=== PATIENT | male | born 1960 | race Caucasian/White ===

== ENCOUNTER → 2016-10-29 | Outpatient (CLI) | payer OTHER ==
--- NOTE | 2016-10-29 14:20 | US ---
EXAMINATION TYPE: US carotid duplex BILAT DATE OF EXAM: 10/29/2016 12:09 PM COMPARISON: NONE CLINICAL HISTORY: R55.0 presyncopal episode. EXAM MEASUREMENTS: RIGHT: Peak Systolic Velocity (PSV) cm/sec ----- Right CCA: 95.5 ----- Right ICA: 100.5 ----- Right ECA: 105.7 ICA/CCA ratio: 1.1 RIGHT: End Diastole cm/sec ----- Right CCA: 23.5 ----- Right ICA: 23.5 ----- Right ECA: 17.6 LEFT: Peak Systolic Velocity (PSV) cm/sec ----- Left CCA: 97.8 ----- Left ICA: 114.1 ----- Left ECA: 158.2 ICA/CCA ratio: 1.2 LEFT: End Diastole cm/sec ----- Left CCA: 23.5 ----- Left ICA: 34.9 ----- Left ECA: 21.8 VERTEBRALS (direction of flow): Right Vertebral: Antegrade Left Vertebral: Antegrade TECHNOLOGIST IMPRESSION: No significant stenosis seen Grayscale images show mild eccentric plaque at bilateral carotid bulbs. Velocity measurements and rat ios in visualized portion of both internal carotid arteries is within normal limits. IMPRESSION: No hemodynamically significant stenosis is seen in either internal carotid artery. Criteria for Assigning % of Stenosis / Diameter reduction (Estimation based on the indirect measurements of the internal carotid artery velocities (ICA PSV). 2. Less than 50% stenosis=ICA PSV < 125 cm/s: ratio < 2.0: ICA EDV<40 cm/s.
--- NOTE | 2016-10-30 10:12 | ECHOF ---
Referral Reason:R55.0 presyncopal episode MEASUREMENTS -------- HEIGHT: 165.1 cm WEIGHT: 86.2 kg BP: 134/62 RVIDd: 2.5 cm (< 3.3) IVSd: 1.0 cm (0.6 - 1.1) LVIDd: 4.1 cm (3.9 - 5.3) LVPWd: 1.0 cm (0.6 - 1.1) IVSs: 1.6 cm LVIDs: 3.0 cm LVPWs: 1.8 cm LA Diam: 3.2 cm (2.7 - 3.8) LAESV Index (A-L): 23.87 ml/m Ao Diam: 3.2 cm (2.0 - 3.7) AV Cusp: 1.5 cm (1.5 - 2.6) LA Diam: 2.7 cm (2.7 - 3.8) MV EXCURSION: 9.371 mm (> 18.000) MV EF SLOPE: 44 mm/s (70 - 150) EPSS: 0.3 cm MV E Alberto: 0.60 m/s MV DecT: 207 ms MV A Alberto: 1.06 m/s MV E/A Ratio: 0.57 AR PHT: 524 ms FINDINGS -------- Sinus rhythm. This was a technically good study. Left ventricular wall thickness is normal. Overall left ventricular systolic function is normal with, an EF between 55 - 60 %. The right ventricle is normal in size and function. Normal LA size by volume 22+/-6 ml/m2. The right atrium is normal in size. Aortic valve is trileaflet and is mildly thickened. There is mild aortic regurgitation. Mild mitral annular calcification present. There is trace mitral regurgitation. Mild tricuspid regurgitation present. Pulmonic valve appears structurally normal. The aortic root size is normal. Normal inferior vena cava with normal inspiratory collapse consistent with estimated right atrial pressure of 5 mmHg. Echo free space may represent effusion or a pericardial fat pad. CONCLUSIONS -------- 1. Sinus rhythm. 2. Mild mitral annular calcification present. 3. There is trace mitral regurgitation. 4. Mild tricuspid regurgitation present. 5. Pulmonic valve appears structurally normal. 6. The aortic root size is normal. 7. Normal inferior vena cava with normal inspiratory collapse consistent with estimated right atrial pressure of 5 mmHg. 8. Echo free space may represent effusion or a pericardial fat pad. 9. This was a technically good study. 10. Left ventricular wall thickness is normal. 11. Overall left ventricular systolic function is normal with, an EF between 55 - 60 %. 12. The right ventricle is normal in size and function. 13. Normal LA size by volume 22+/-6 ml/m2. 14. The right atrium is normal in size. 15. Aortic valve is trileaflet and is mildly thickened. 16. There is mild aortic regurgitation. VACUUM PAN OPERATOR: Ajith Schumacher RDCS
== END | disposition home or self-care (01) ==
LOC: RADECHMAIN 11:10
PROVIDERS: ATTEND Family Medicine
DX: R55 Syncope and collapse (principal)
CPT/HCPCS: 93306; 93880

== ENCOUNTER 2020-02-14 09:03 | Day surgery (SDC) | payer OTHER ==
[2020-02-10 09:14] VITALS: BMI 29.1
[~2020-02-14 09:03] MED LIST: LACTATED RINGERS 1,000 ML IV SCH
[2020-02-14 09:30] VITALS: TEMP 97
[2020-02-14] MEDS ORDERED: LIDOCAINE 1% (10MG/ML) FOR IV START INTRADERMA ONE (09:42)
[2020-02-14] MEDS ORDERED: LACTATED RINGERS 1,000 ML IV ONE (09:42)
[2020-02-14] MEDS ORDERED: PROPOFOL 10 MG/ML 20 ML VIAL IV ONE (10:31)
--- NOTE | 2020-02-14 11:00 | P.PCN ---
Date of Procedure: 02/14/20 Description of Procedure: BRIEF HISTORY: Patient is a 60 -year-old female presenting for outpatient colonoscopy for screening for malignant neoplasm of the colon. Remote history of colonoscopy over 10 years ago. No change in bowel habits, blood per rectum or family history of colon cancer. PROCEDURE PERFORMED: Colonoscopy with polypectomy. PREOPERATIVE DIAGNOSIS: Screening for malignant neoplasm of the colon, remote history of colonoscopy. ESTIMATED BLOOD LOSS: Minimal. IV sedation per Anesthesia. PROCEDURE: After informed consent was obtained, the patient, was brought into the endoscopy unit. IV sedation was administered by Anesthesia under continuous monitoring. Digital rectal examination was normal. Initially the Olympus CF-190 flexible video colonoscope was then inserted in the rectum, gradually advanced into the cecum without any difficulty. Careful examination was performed as the scope was gradually being withdrawn. Ileocecal valve and the appendiceal orifice were visualized and appeared normal. Prep was excellent. Mucosa of the cecum, ascending colon, transverse colon, descending colon, sigmoid colon, and rectum appeared normal. The terminal ileum was intubated and appeared normal. Diminutive 2 mm sigmoid polyp removed with cold forcep polypectomy. Pedunculated 1 cm rectal polyp removed with cold snare polypectomy. A few diminutive diverticula noted in the sigmoid colon. Retroflexion was performed in the rectum and no lesions were seen, low-grade internal hemorrhoids. The patient tolerated the procedure well. IMPRESSION: Pedunculated rectal polyp removed with cold snare. Diminutive sigmoid polyp removed with cold forcep. Mild sigmoid diverticulosis. Low-grade internal hemorrhoids. RECOMMENDATIONS: Findings of this examination were discussed with the patient and his family. Okay to resume diet. Okay to resume medications. Await pathology from polypectomy. Would recommend repeat colonoscopy in 3 years for high risk colon polyps.
[2020-02-14 11:08] VITALS: RESP 16
[2020-02-14 11:46] VITALS: BP 131/74; PULSE 79
== END 2020-02-14 11:47 | disposition home or self-care (01) ==
LOC: ORWHC2ENDO 09:03
PROVIDERS: ATTEND Internal Medicine
DX: Z12.11 Encounter for screening for malignant neoplasm of colon (principal); K63.5 Polyp of colon; D12.8 Benign neoplasm of rectum; K57.30 Diverticulosis of large intestine without perforation or abscess without bleeding; K64.8 Other hemorrhoids; I10 Essential (primary) hypertension; I25.10 Atherosclerotic heart disease of native coronary artery without angina pectoris; F17.200 Nicotine dependence, unspecified, uncomplicated; Z79.02 Long term (current) use of antithrombotics/antiplatelets; Z79.899 Other long term (current) drug therapy; Z79.82 Long term (current) use of aspirin; Z95.5 Presence of coronary angioplasty implant and graft; Z98.890 Other specified postprocedural states; Z97.2 Presence of dental prosthetic device (complete) (partial)
CPT/HCPCS: 88305; 45380; 45385; J2704

== ENCOUNTER 2021-01-19 09:45 | Emergency (ER) | payer OTHER ==
[2021-01-19 09:58] VITALS: TEMP 98
[2021-01-19] MEDS: ONDANSETRON 4 MG/2 ML VIAL IVP STA (11:26)
[2021-01-19] MEDS: MORPHINE SULFATE 4 MG/ML SYRINGE IVP STA (11:26)
[2021-01-19 11:34] LABS: Basophils # (A) 0.1 k/uL (0-0.2); Basophils % (A) 1 %; Eosinophils # (A) 0.1 k/uL (0-0.7); Eosinophils % (A) 1 %; HCT 42.4 % (39.0-53.0); HGB 14.8 gm/dL (13.0-17.5); Lymphocytes # (A) 2.2 k/uL (1.0-4.8); Lymphocytes % (A) 14 %; MCH 31.9 pg (25.0-35.0); Mean Platelet Volume 7.4; Monocytes # (A) 1.3 k/uL (0-1.0); Monocytes % (A) 8 %; Neutrophils # (A) 11.1 k/uL (1.3-7.7); Neutrophils % (A) 74 %; Platelet Count 274 k/uL (150-450); RBC 4.65 m/uL (4.30-5.90); RDW 12.7 % (11.5-15.5)
[2021-01-19 11:45] LABS: Albumin 4.1 g/dL (3.5-5.0); Calcium 9.4 mg/dL (8.4-10.2); Potassium 4.3 mmol/L (3.5-5.1); Total Bilirubin 0.7 mg/dL (0.2-1.3)
--- NOTE | 2021-01-19 12:20 | CT ---
EXAMINATION TYPE: CT pelvis wo con DATE OF EXAM: 01/19/2021 COMPARISON: None. HISTORY: Perirectal abscess CT DLP: 457.4 mGycm Automated exposure control for dose reduction was used. FINDINGS: No abnormal small or large bowel dilatation. Some diverticula on the left and sigmoid colon. No CT ev idence for acute diverticulitis. Enlarged prostate consistent with BPH with central calcifications. Bulging of bladder base. Urinary b ladder appears within normal limits. Moderate calcified plaque of the distal abdominal aorta extends into iliac branch vessels were there are metallic stent grafts stent into the external iliac arteries. Focal thin-walled fluid and adjacent fat stranding left perianal region measuring 2.4 x 1.8 cm on axi al image 65 x 3.2 cm craniocaudal dimension coronal image 67. IMPRESSION: Confirmation of small 3.2 cm thin-walled left perianal fluid collection and/or developing abscess.
--- NOTE | 2021-01-19 12:37 | ED ---
General Adult HPI - General Chief complaint: Skin/Abscess/Foreign Body Stated complaint: Abcess, Male Time Seen by Provider: 01/19/21 10:51 Source: patient, RN notes reviewed Mode of arrival: ambulatory Limitations: no limitations - History of Present Illness Initial comments: 61-year-old male presented to emergency from it with chief complaint of abscess. Patient states started a few days a small pimple states is progressively worse and sent over from urgent care for evaluation. Patient denies any fevers chills no history diabetes patient states is painful. Denies any difficulty with bowel movements. - Related Data Home Medications Medication Instructions Recorded Confirmed Aspirin EC [Ecotrin Low Dose] 81 mg PO HS 02/09/20 02/09/20 Atorvastatin [Lipitor] 10 mg PO HS 02/09/20 02/09/20 Clopidogrel [Plavix] 75 mg PO DAILY 02/09/20 02/10/20 Tamsulosin [Flomax] 0.4 mg PO DAILY 02/09/20 02/09/20 lisinopriL [Zestril] 20 mg PO DAILY 02/09/20 02/09/20 Previous Rx's Medication Instructions Recorded Amoxicillin/Potassium Clav 1 tab PO Q12HR #20 tab 01/19/21 [Augmentin 875-125 Tablet] Allergies Allergy/AdvReac Type Severity Reaction Status Date / Time No Known Allergies Allergy Verified 01/19/21 09:58 Review of Systems ROS Statement: Those systems with pertinent positive or pertinent negative responses have been documented in the HPI. ROS Other: All systems not noted in ROS Statement are negative. Past Medical History Past Medical History: Hyperlipidemia, Hypertension, Osteoarthritis (OA) Additional Past Medical History / Comment(s): PAD History of Any Multi-Drug Resistant Organisms: None Reported Additional Past Surgical History / Comment(s): PTBA WITH STENT-2016, COLONOSCOPY Past Anesthesia/Blood Transfusion Reactions: No Reported Reaction Past Psychological History: No Psychological Hx Reported Smoking Status: Current every day smoker Past Alcohol Use History: Rare Past Drug Use History: Marijuana - Past Family History Father Family Medical History: Cancer General Exam Limitations: no limitations General appearance: alert, in no apparent distress Respiratory exam: Present: normal lung sounds bilaterally. Absent: respiratory distress, wheezes, rales, rhonchi, stridor Cardiovascular Exam: Present: regular rate, normal rhythm, normal heart sounds. Absent: systolic murmur, diastolic murmur, rubs, gallop, clicks GI/Abdominal exam: Present: soft, normal bowel sounds. Absent: distended, tende rness, guarding, rebound, rigid Rectal exam: Present: other ((Left Cheek inner aspect there is noted) Neurological exam: Present: alert Skin exam: Present: warm, dry, intact, normal color. Absent: rash Course Vital Signs 01/19/21 09:54 Temperature 98.0 F Pulse Rate 107 H Respiratory 18 Rate Blood Pressure 118/65 O2 Sat by Pulse 99 Oximetry Procedures - Incision & Drainage Consent Obtained: written consent Site: buttock Anesthetic Used: lidocaine 1%, without epi Amount (mLs): 3 I&D Cleaning Method: Alcohol Wipe Sterile Field Used?: No Scalpel Used: #11 I&D Drainage Obtained: Pus Culture Obtained?: No Patient Tolerated Procedure: well, no complications Medical Decision Making - Medical Decision Making case discussed with Dr. Ca recommended I&D and follow-up return parameters were discussed. - Lab Data Result diagrams: 01/19/21 11:21 01/19/21 11:21 Lab Results 01/19/21 01/19/21 01/19/21 Range/Units 11:21 11:21 11:21 WBC 15.0 H (3.8-10.6) k/uL RBC 4.65 (4.30-5.90) m/uL Hgb 14.8 (13.0-17.5) gm/dL Hct 42.4 (39.0-53.0) % MCV 91.0 (80.0-100.0) fL MCH 31.9 (25.0-35.0) pg MCHC 35.0 (31.0-37.0) g/dL RDW 12.7 (11.5-15.5) % Plt Count 274 (150-450) k/uL MPV 7.4 Neutrophils % 74 % Lymphocytes % 14 % Monocytes % 8 % Eosinophils % 1 % Basophils % 1 % Neutrophils # 11.1 H (1.3-7.7) k/uL Lymphocytes # 2.2 (1.0-4.8) k/uL Monocytes # 1.3 H (0-1.0) k/uL Eosinophils # 0.1 (0-0.7) k/uL Basophils # 0.1 (0-0.2) k/uL Sodium 138 (137-145) mmol/L Potassium 4.3 (3.5-5.1) mmol/L Chloride 107 (98-107) mmol/L Carbon Dioxide 23 (22-30) mmol/L Anion Gap 8 mmol/L BUN 20 (9-20) mg/dL Creatinine 1.55 H (0.66-1.25) mg/dL Est GFR (CKD-EPI)AfAm 54 (>60 ml/min/1.73 sqM) Est GFR (CKD-EPI)NonAf 47 (>60 ml/min/1.73 sqM) Glucose 107 H (74-99) mg/dL Plasma Lactic Acid Helder 1.3 (0.7-2.0) mmol/L Calcium 9.4 (8.4-10.2) mg/dL Total Bilirubin 0.7 (0.2-1.3) mg/dL AST 23 (17-59) U/L ALT 16 (4-49) U/L Alkaline Phosphatase 148 H (38-126) U/L Total Protein 7.0 (6.3-8.2) g/dL Albumin 4.1 (3.5-5.0) g/dL Disposition Clinical Impression: Perianal abscess Disposition: HOME SELF-CARE Condition: Stable Instructions (If sedation given, give patient instructions): Abscess Incision and Drainage (ED) Additional Instructions: Please return to the Emergency Department if symptoms worsen or any other concerns. Prescriptions: Amoxicillin/Potassium Clav [Augmentin 875-125 Tablet] 1 tab PO Q12HR #20 tab Is patient prescribed a controlled substance at d/c from ED?: No Referrals: [facility],Clinic [Primary Care Provider] - 1-2 days Time of Disposition: 13:22
[2021-01-19] MEDS: LIDOCAINE 1% INJ 10MG/ML (20 ML MDV) SQ ONE (12:42)
[2021-01-19] MEDS: ACET/COD 300 MG/30 MG STARTER PACK 6 TAB BTL PO STA (13:50)
[2021-01-19 15:27] VITALS: BP 118/74; PULSE 89; RESP 20
== END 2021-01-19 15:27 | disposition home or self-care (01) ==
LOC: EC 09:45
DX: L02.31 Cutaneous abscess of buttock (principal); F17.200 Nicotine dependence, unspecified, uncomplicated; I10 Essential (primary) hypertension; E78.5 Hyperlipidemia, unspecified; M19.90 Unspecified osteoarthritis, unspecified site; Z79.82 Long term (current) use of aspirin; F12.90 Cannabis use, unspecified, uncomplicated
CPT/HCPCS: 36415; 80053; 83605; 85025; 72192; 10060; 99284; 96374; 96375; 96372; J2270; J2405; J2001

== ENCOUNTER → 2021-05-23 | Outpatient (CLI) | payer OTHER ==
--- NOTE | 2021-05-23 16:14 | MR ---
EXAMINATION TYPE: MR shoulder LT wo con DATE OF EXAM: 05/23/2021 COMPARISON: None. HISTORY: Left shoulder/bicep pain, limited ROM. TECHNIQUE: Multiplanar, multisequence imaging of the left shoulder is performed without contrast. FINDINGS: Rotator Cuff: The distal supraspinatus tendon shows increased signal and thickening distally through majority of the tendon with some relative sparing of the superior fibers. More mild increased signal distal infraspinatus tendon greatest over articular surface. No full-thickness retracted tear. Subsca pularis tendon is intact. Rotator cuff muscle bulk is preserved. Acromioclavicular Joint: Moderate to severe narrowing with loss of underlying fat plane sagittal imag e 11 for reference. No significant spurring. Glenohumeral Joint: Moderate narrowing. No significant spurring. Tiny joint effusion. Labrum: The labrum appears grossly intact given limitation of non-arthrogram study. Biceps Tendon: The long head of biceps is in normal location within bicipital groove. Bone marrow signal: Subchondral cysts scattered throughout the femoral head including the rotator cuf f tendon insertion. Other: No additional significant abnormality is appreciated. IMPRESSION: 1. Moderate to severe AC joint narrowing with underlying impingement suspected. Correlate clinically. 2. Severe tendinosis distal supraspinatus tendon. More mild tendinosis distal infraspinatus tendon. N o full-thickness rotator cuff tear.
== END | disposition home or self-care (01) ==
LOC: RADMRIMAIN 11:54
PROVIDERS: ATTEND Physician Assistant
DX: M19.011 Primary osteoarthritis, right shoulder (principal); M67.814 Other specified disorders of tendon, left shoulder

== ENCOUNTER 2022-01-02 20:31 | Inpatient (IN) | payer OTHER, MEDICARE ==
--- NOTE | 2022-01-02 21:34 | XR ---
EXAM: Abdomen radiograph. HISTORY: Pain and constipation. TECHNIQUE: Supine and upright AP views. COMPARISON: None available FINDINGS: There is moderate colonic distention with gas and stool. There is a nonobstructive bowel gas pattern. There are no pathologic calcifications. No acute osseous abnormality seen. No pneumoperitoneum. IMPRESSION: Stool burden/colonic gas. Nonobstructive bowel gas pattern.
[2022-01-03] MEDS ORDERED: SODIUM CHLORIDE 0.9% 1,000 ML IV STA (00:18)
[2022-01-03] MEDS ORDERED: KETOROLAC 15 MG/ML 1 ML VIAL IVP STA (00:18)
--- NOTE | 2022-01-03 00:19 | ED ---
Abdominal Pain HPI - General Chief Complaint: Abdominal Pain Stated Complaint: Constipation Time Seen by Provider: 01/03/22 00:17 Source: patient, RN notes reviewed, old records reviewed Mode of arrival: wheelchair Limitations: no limitations - History of Present Illness Initial Comments: This is a 61-year-old male DF for evaluation. Patient Dese for evaluation of abdominal pain. Patient has severe diffuse abdominal pain he believes it is mostly can't the patient. Patient has history of constipation. States he did have a bowel movement earlier felt mildly better but then the pain got worse. Patient has nausea no vomiting. No travel or sick contacts, and also denying fevers. MD Complaint: abdominal pain -: hour(s) Location: diffuse Radiation: none Migration to: epigastric, suprapubic Severity: moderate Severity scale (1-10): 4 Quality: cramping, stabbing Consistency: constant Improves With: nothing Worsens With: nothing Context: other (Patient has had prior colonoscopy) Associated Symptoms: nausea, constipation Treatments Prior to Arrival: other (none) - Related Data Home Medications Medication Instructions Recorded Confirmed Aspirin EC [Ecotrin Low Dose] 81 mg PO HS 02/09/20 01/19/21 Clopidogrel [Plavix] 75 mg PO HS 02/09/20 01/19/21 Tamsulosin [Flomax] 0.4 mg PO HS 02/09/20 01/19/21 lisinopriL [Zestril] 20 mg PO HS 02/09/20 01/19/21 Atorvastatin [Lipitor] 20 mg PO HS 01/19/21 01/19/21 Previous Rx's Medication Instructions Recorded Amoxicillin/Potassium Clav 1 tab PO Q12HR #20 tab 01/19/21 [Augmentin 875-125 Tablet] Allergies Allergy/AdvReac Type Severity Reaction Status Date / Time No Known Allergies Allergy Verified 01/02/22 21:02 Review of Systems ROS Statement: Those systems with pertinent positive or pertinent negative responses have been documented in the HPI. ROS Other: All systems not noted in ROS Statement are negative. Past Medical History Past Medical History: Hyperlipidemia, Hypertension, Osteoarthritis (OA) Additional Past Medical History / Comment(s): PAD History of Any Multi-Drug Resistant Organisms: None Reported Additional Past Surgical History / Comment(s): PTBA WITH STENT-2016, COLONOSCOPY Past Anesthesia/Blood Transfusion Reactions: No Reported Reaction Past Psychological History: No Psychological Hx Reported Smoking Status: Current every day smoker Past Alcohol Use History: Rare Past Drug Use History: Marijuana - Past Family History Father Family Medical History: Cancer General Exam Limitations: no limitations General appearance: alert, in no apparent distress Head exam: Present: atraumatic, normocephalic, normal inspection Eye exam: Present: normal appearance, PERRL, EOMI. Absent: scleral icterus, conjunctival injection, periorbital swelling ENT exam: Present: normal exam, mucous membranes moist Neck exam: Present: normal inspection. Absent: tenderness, meningismus, lymphadenopathy Respiratory exam: Present: normal lung sounds bilaterally. Absent: respiratory distress, wheezes, rales, rhonchi, stridor Cardiovascular Exam: Present: regular rate, normal rhythm, normal heart sounds. Absent: systolic murmur, diastolic murmur, rubs, gallop, clicks GI/Abdominal exam: Present: soft, distended, tenderness, guarding, normal bowel sounds. Absent: rebound, rigid Extremities exam: Present: normal inspection, full ROM, normal capillary refill. Absent: tenderness, pedal edema, joint swelling, calf tenderness Back exam: Present: normal inspection Neurological exam: Present: alert, oriented X3, CN II-XII intact Psychiatric exam: Present: normal affect, normal mood Skin exam: Present: warm, dry, intact, normal color. Absent: rash Course Vital Signs 01/02/22 20:59 Temperature 99.6 F Pulse Rate 98 Respiratory 16 Rate Blood Pressure 117/63 O2 Sat by Pulse 99 Oximetry - Reevaluation(s) Reevaluation #1: 01/03/22 01:46 medical record is reviewed Reevaluation #2: 01/03/22 01:46 Patient informed of results and questions answered Reevaluation #3: 01/03/22 01:47 Patient's pain is significantly improved Medical Decision Making - Medical Decision Making 61 male to the emergency department for evaluation. Patient presents today for evaluation regards to abdominal pain does have current diverticulitis with perforation. Patient be admitted IV antibiotics and surgical evaluation and treatment - Radiology Data Radiology results: report reviewed (CT of the abdomen and pelvis positive for diverticulitis and perforation), image reviewed Critical Care Time Critical Care Time: Yes Total Critical Care Time: 31 Disposition Clinical Impression: Abdominal pain, Diverticulitis, Diverticulitis of colon with perforation Disposition[facility] Condition: Serious Is patient prescribed a controlled substance at d/c from ED?: No Referrals: Channing Osorio PAC [REFERRING] - 1-2 days
[2022-01-03] MEDS ORDERED: MORPHINE SULFATE 4 MG/ML SYRINGE IVP STA (00:44)
--- NOTE | 2022-01-03 01:34 | CT ---
EXAMINATION TYPE: CT abdomen pelvis wo con DATE OF EXAM: 01/03/2022 COMPARISON: None HISTORY: CT DLP: mGycm Automated exposure control for dose reduction was used. Images obtained from the diaphragm to the floor of the pelvis with no contrast. The lung bases are clear. No pleural effusion. Heart size is normal. No pericardial effusion. Liver spleen and stomach pancreas appear intact. The bile ducts are not dilated. Gallbladder is contr acted. There is no adrenal mass. Kidneys have normal size. No hydronephrosis. Ureters are not dilated. No ev idence of a renal mass. There is no retroperitoneal adenopathy. Appendix is posterior and appears nor mal. Bladder distends smoothly. There is no inguinal hernia. There is mild prostate calcification. There is some wall thickening and fat stranding around the mid sigmoid colon. There are sigmoid diver ticula. There is extraluminal air bubbles on the right lateral aspect of the mid sigmoid colon. No si gn of free air in the abdomen. There is no inguinal hernia. The lumbar vertebrae have normal alignment. No compression fracture. Facet joints are intact. The bon y pelvis is intact. The hip joints are intact. Sacroiliac joints are intact. IMPRESSION: There is sigmoid diverticulitis with perforation and extraluminal air adjacent to the anterior right side of the sigmoid colon. No free air in the abdomen. Inflammatory changes. No drainable fluid colle ction.
[2022-01-03] MEDS ORDERED: AMPICILLIN-SULBACTAM 3 GM in SODIUM CHLORIDE 0.9% 100 ML IVPB STA (01:43)
[2022-01-03] MEDS ORDERED: MORPHINE SULFATE 4 MG/ML SYRINGE IV PRN (01:44)
[2022-01-03] MEDS ORDERED: ONDANSETRON 4 MG/2 ML VIAL IVP PRN (01:44)
[2022-01-03] MEDS ORDERED: NALOXONE 0.4 MG/ML 1 ML VIAL IV PRN (01:44)
[2022-01-03 02:00] LABS: Albumin 4.2 g/dL (3.5-5.0); Calcium 9.1 mg/dL (8.4-10.2); Magnesium 1.8 mg/dL (1.6-2.3); Phosphorus 3.4 mg/dL (2.5-4.5); Potassium 4.3 mmol/L (3.5-5.1); Total Bilirubin 0.9 mg/dL (0.2-1.3)
[2022-01-03 02:06] LABS: Basophils % (A) 0 %; Eosinophils # (A) 0.1 k/uL (0-0.7); Eosinophils % (A) 1 %; HCT 41.4 % (39.0-53.0); HGB 14.1 gm/dL (13.0-17.5); Lymphocytes # (A) 1.1 k/uL (1.0-4.8); Lymphocytes % (A) 5 %; MCV 94.1 fL (80.0-100.0); Mean Platelet Volume 8.2; Monocytes % (A) 5 %; Neutrophils # (A) 19.2 k/uL (1.3-7.7); Neutrophils % (A) 89 %; Platelet Count 230 k/uL (150-450); RDW 13.9 % (11.5-15.5); WBC 21.6 k/uL (3.8-10.6)
[2022-01-03] MEDS: SODIUM CHLORIDE 0.9% 1,000 ML IV SCH ×4 (02:39→21:41)
[2022-01-03] MEDS ORDERED: SODIUM CHLORIDE 0.9% 1,000 ML IV ONE (06:34)
[2022-01-03] MEDS: metroNIDAZOLE-NS PMX 500 MG in SALINE 1 100ML.BAG IVPB SCH ×3 (07:47→17:45)
[2022-01-03] MEDS: PANTOPRAZOLE 40 MG/10 ML VIAL IV SCH (07:47)
[2022-01-03] MEDS: NICOTINE 14MG/24HR PATCH TRANSDERM SCH (08:37)
[2022-01-03] MEDS: HYDROmorphone 1 MG/ML 1 ML SYRINGE IVP PRN ×4 (10:00→18:59)
[2022-01-03] MEDS: AMPICILLIN-SULBACTAM 3 GM in SODIUM CHLORIDE 0.9% 100 ML IVPB SCH ×2 (11:19→19:01)
--- NOTE | 2022-01-03 12:56 | P.GSHP ---
History of Present Illness H&P Date: 01/03/22 CHIEF COMPLAINT: Abdominal pain HISTORY OF PRESENT ILLNESS: This is a 61-year-old male who presented to the hospital with complaints of left lower quadrant abdominal pain 2 days. He reports the pain did come on after eating pork chops. He has been having nausea. He reports that the pain is very severe. He had rated the pain 10 out of 10. He reports having low-grade temperatures at home. He had been dealing with constipation and did use an enema. He reports that did increase the abdominal pain. He has been having flatus. No S bowel movement. He denies any prior history of diverticulitis. He does have history of constipation and nicotine dependence. Also history of peripheral arterial disease with stent in the groin area. He is on Plavix at home. The last dose of Plavix was on 12/31/2021. Patient's last colonoscopy was in January 2021. Reported noncancerous colon polyps. Patient had a computed tomography scan of the abdomen and pelvis showing sigmoid diverticulitis with perforation. Patient started on antibiotics. And was made nothing by mouth. PAST MEDICAL HISTORY: See list. PAST SURGICAL HISTORY: See list. MEDICATIONS: See list. ALLERGIES: See list. SOCIAL HISTORY: No illicit drug use. REVIEW OF SYSTEMS: CONSTITUTIONAL: Denies fever or chills. HEENT: Denies blurred vision, vision changes, or eye pain. Denies hemoptysis ENDOCRINE: Denies heat or cold intolerance. CARDIOVASCULAR: Denies chest pain or pressure. RESPIRATORY: No shortness of breath. GASTROINTESTINAL: Please refer to HPI otherwise unremarkable NEURO: Denies history of seizures. PSYCH: No depression or suicidal ideation HEMATOLOGIC: Denies bleeding disorders. LYMPHATIC: The patient denies any lumps and bumps around the neck. GENITOURINARY: Denies any blood in urine or increased urinary frequency. MUSCULOSKELETAL: Denies myalgias. Denies joint swelling. Denies decreased range of motion beyond patients baseline. SKIN: Denies pruitis. Denies rash. PHYSICAL EXAM: VITAL SIGNS: Reviewed GENERAL: Well-developed in no acute distress. HEENT: No sclera icterus. Extraocular movements grossly intact. Moist buccal mucosa. Head is atraumatic, normocephalic. Hears conversational speech. No nasal drainage. NECK: Supple without lymphadenopathy. CHEST: Non-labored respirations and equal bilateral excursions. CARDIOVASCULAR: Palpable 2+ radial pulses. ABDOMEN: Soft. Nondistended. Tenderness with palpation in the left lower quadrant but closer to the left lower middle abdomen MUSCULOSKELETAL: No clubbing or cyanosis. NEUROLOGIC: No focal or lateralizing signs. Cranial nerves II through XII grossly intact. PSYCH: Appropriate affect. Alert and oriented to person, place and time. SKIN: Well perfused. Good skin turgor. LABORATORY DATA: WBC is 21.6 hemoglobin 14.1 platelets 2:30 Sodium is 138 potassium is 4.3 creatinine is 1.39 Magnesium 1.8 AST 19 ALT 17 alk phos 141 lipase 28 total bilirubin 0.9 IMAGING: Computed tomography scan abdomen and pelvis there is sigmoid diverticulitis with perforation and extraluminal air adjacent to the anterior side of the sigmoid colon. No free air in the abdomen. Inflammatory changes. No drainable fluid collection. ASSESSMENT: 1. Acute sigmoid diverticulitis with perforation 2. Leukocytosis 3. Nicotine dependence 4. History of peripheral arterial disease with stent and on Plavix 5. Hypertension 6. Hyperlipidemia PLAN: -Recommend conservative management for now with IV antibiotics -Keep patient nothing by mouth except for ice chips and popsicles -Consult cardiology for cardiac risk assessment -Consult medicine service for medical management -Continue pain management -Continue IV fluids -Continue to hold Plavix for possible surgical intervention -Discussed smoking cessation. Continue nicotine patch. -Add incentive spirometer Physician Net Washer note has been reviewed by physician. Signing provider agrees with the documented findings, assessment, and plan of care. REASON FOR CONSULTATION: Perforated diverticulitis HISTORY OF PRESENT ILLNESS: The patient is a 61 year old male who comes in with 2 day history of lower abdominal pain. He is an active tobacco user. He reports moderate to severe abdominal pain. He denies any prior event. He had his last colonoscopy in 2019 with polypectomy and tubular adenoma with low grade dysplasia. He has history of peripheral vascular disease. He is admitted for perforated diverticulitis. PAST MEDICAL HISTORY: See list and reviewed PAST SURGICAL HISTORY: See list and reviewed MEDICATIONS: See list and reviewed ALLERGIES: See list and reviewed SOCIAL HISTORY: See list and reviewed FAMILY HISTORY: See list and reviewed REVIEW OF ORGAN SYSTEMS: CONSTITUTIONAL: No fevers or chills. No recent weight loss. EYES: Denies any trouble with vision. No glasses. HEENT: No difficulties with hearing. No nosebleeds. No difficulty swallowing. RESPIRATORY: Denies pneumonia. Has tobacco abuse disorder. CARDIOVASCULAR: Has hyperlipidemia. Has hypertension. GASTROINTESTINAL: Denies fatty food intolerance. Denies change in bowel habits and gas bloat. GENITOURINARY: Denies any blood in urine. Has increased urinary frequency due to prostate disorder. NEUROLOGICAL: Denies any numbness or tingling along the distal extremities. No seizure disorders or headaches. MUSCULOSKELETAL: Has back pain, stiffness or joint arthritis. SKIN: No current skin cancer. No rash. PSYCHIATRIC: Denies current depression or suicidal thoughts. ENDOCRINE: Denies current thyroid disorders. Denies any blood sugar glucose intolerance. HEME/LYMPHATIC: Denies any lumps and bumps around the neck. No recent deep venous thrombosis. ALLERGY/IMMUNOLOGY: No immunoglobulin therapy. No immune deficiencies. BREAST: Denies current breast lumps, pain or nipple discharge. PHYSICAL EXAM: VITALS: Reviewed CONSTITUTIONAL: Well developed and in no acute distress. EYES: Conjuctivae without sclera icterus. Extraocular movements grossly intact. HEAD, EARS, NOSE, THROAT: Moist buccal mucosa. Head is atraumatic, normocephalic. Hears conversational speech. No nasal drainage. NECK: Supple. No JV distention. No thyroidomegaly. RESPIRATORY: Non-labored respirations and equal bilateral excursions. No gross wheezes. CARDIOVASCULAR: Regular rate and rhythm. Extremities without moderate edema. Palpable 2+ radial pulses. ABDOMEN: Tender left lower quadrant. No rigidity. LYMPH: No gross neck lymphadenopathy. MUSCULOSKELETAL: No clubbing cyanosis or edema. SKIN: Warm and well perfused with good skin turgor. NEUROLOGIC: Cranial nerves II through XII grossly intact. No focal or lateralizing signs. PSYCH: Appropriate affect. Alert and oriented to person, place and time. Displays appropriate insight. CLINCAL LABS: Reviewed. WBC 21.6 and elevated on admission with leukocytosis. Creatnine elevated 1.39. IMAGING: Independently reviewed CT of the abdomen and pelvis demonstratign perforation at sigmoid colon. No abscess. No diffuse pneumoperitoneum this is my independent interpretation. Abdominal x-ray independently reviewed without pneumoperitoneum. This is my independent interpretation. RADIOLOGY: Report reviewed of CT with no drainable abscess. Presence of air at the sigmoid colon. EKG: Normal sinus rhythm. RECORDS: previous old records reviewed with colonoscopy in 2019 of diverticulosis and 1 cm rectal colon polyp. ASSESSMENT: 1. Perforated sigmoid diverticulitis 2. Leukocytosis 3. History of colon polyp 4. Tobacco abuse disorder 5. Hypertensive heart disease 6. Peripheral vascular occlusive disease PLAN: 1. IV fluid hydration 2. IV antibiotics 3. Strict tobacco cessation advised 4. Cardiology consultation advised for peripheral vascular diseased and holding plavix 5. Patient is elevated risk for bleeding and complications with chronic antiplatelet use. ADVANCE DIRECTIVE: Thank you for this kind consultation. Past Medical History Past Medical History: Hyperlipidemia, Hypertension, Osteoarthritis (OA) Additional Past Medical History / Comment(s): PAD History of Any Multi-Drug Resistant Organisms: None Reported Additional Past Surgical History / Comment(s): PTBA WITH STENT-2015, COLONOSCOPY Past Anesthesia/Blood Transfusion Reactions: No Reported Reaction Past Psychological History: No Psychological Hx Reported Smoking Status: Current every day smoker Past Alcohol Use History: Rare Additional Past Alcohol Use History / Comment(s): STARTED SMOKING AT AGE 15 SMOKES 1 - 1 1/2 PPD Past Drug Use History: Marijuana - Past Family History Father Family Medical History: Cancer Medications and Allergies Home Medications Medication Instructions Recorded Confirmed Type Aspirin EC [Ecotrin Low Dose] 81 mg PO HS 02/09/20 01/03/22 History Clopidogrel [Plavix] 75 mg PO HS 02/09/20 01/03/22 History Tamsulosin [Flomax] 0.4 mg PO HS 02/09/20 01/03/22 History lisinopriL [Zestril] 20 mg PO HS 02/09/20 01/03/22 History Atorvastatin [Lipitor] 40 mg PO HS 01/03/22 01/03/22 History Cholecalciferol [Vitamin D3 (25 25 mcg PO HS 01/03/22 01/03/22 History Mcg = 1000 Iu)] Nicotine 14Mg/24Hr Patch [Habitrol 1 patch TRANSDERM DAILY 01/03/22 01/03/22 History 14Mg/24Hr Patch] Tadalafil [Cialis] 10 mg PO DAILY PRN 01/03/22 01/03/22 History Testosterone [Androgel 1% Gel Pump] 2 applic TOPICAL DAILY 01/03/22 01/03/22 History amLODIPine [Norvasc] 5 mg PO HS 01/03/22 01/03/22 History Allergies Allergy/AdvReac Type Severity Reaction Status Date / Time No Known Allergies Allergy Verified 01/03/22 06:43 Surgical - Exam Vital Signs Temp Pulse Resp BP Pulse Ox 99.6 F 98 16 117/63 99 01/02/22 20:59 01/02/22 20:59 01/02/22 20:59 01/02/22 20:59 01/02/22 20:59 Results - Labs 01/05/22 03:53 01/05/22 03:53 Abnormal Lab Results - Last 24 Hours (Table) 01/03/22 01/03/22 Range/Units 01:37 01:37 WBC 21.6 H (3.8-10.6) k/uL Neutrophils # 19.2 H (1.3-7.7) k/uL Carbon Dioxide 21 L (22-30) mmol/L BUN 22 H (9-20) mg/dL Creatinine 1.39 H (0.66-1.25) mg/dL Glucose 119 H (74-99) mg/dL Alkaline Phosphatase 141 H (38-126) U/L Diabetes panel 01/03/22 Range/Units 01:37 Sodium 138 (137-145) mmol/L Potassium 4.3 (3.5-5.1) mmol/L Chloride 107 (98-107) mmol/L Carbon Dioxide 21 L (22-30) mmol/L BUN 22 H (9-20) mg/dL Creatinine 1.39 H (0.66-1.25) mg/dL Glucose 119 H (74-99) mg/dL Calcium 9.1 (8.4-10.2) mg/dL AST 19 (17-59) U/L ALT 17 (4-49) U/L Alkaline Phosphatase 141 H (38-126) U/L Total Protein 7.0 (6.3-8.2) g/dL Albumin 4.2 (3.5-5.0) g/dL Calcium panel 01/03/22 Range/Units 01:37 Calcium 9.1 (8.4-10.2) mg/dL Phosphorus 3.4 (2.5-4.5) mg/dL Albumin 4.2 (3.5-5.0) g/dL Pituitary panel 01/03/22 Range/Units 01:37 Sodium 138 (137-145) mmol/L Potassium 4.3 (3.5-5.1) mmol/L Chloride 107 (98-107) mmol/L Carbon Dioxide 21 L (22-30) mmol/L BUN 22 H (9-20) mg/dL Creatinine 1.39 H (0.66-1.25) mg/dL Glucose 119 H (74-99) mg/dL Calcium 9.1 (8.4-10.2) mg/dL Adrenal panel 01/03/22 Range/Units 01:37 Sodium 138 (137-145) mmol/L Potassium 4.3 (3.5-5.1) mmol/L Chloride 107 (98-107) mmol/L Carbon Dioxide 21 L (22-30) mmol/L BUN 22 H (9-20) mg/dL Creatinine 1.39 H (0.66-1.25) mg/dL Glucose 119 H (74-99) mg/dL Calcium 9.1 (8.4-10.2) mg/dL Total Bilirubin 0.9 (0.2-1.3) mg/dL AST 19 (17-59) U/L ALT 17 (4-49) U/L Alkaline Phosphatase 141 H (38-126) U/L Total Protein 7.0 (6.3-8.2) g/dL Albumin 4.2 (3.5-5.0) g/dL
[2022-01-03] MEDS ORDERED: traMADol 50 MG TAB PO SCH (13:00)
--- NOTE | 2022-01-03 13:00 | P.CRDCN ---
History of Present Illness History of present illness: HISTORY OF PRESENTING ILLNESS This is a pleasant 61-year-old male past medical history significant for hypertension, dyslipidemia, peripheral vascular disease disease with prior stenting by Dr. Isaac few years ago per patient, chronic nicotine dependence. He does not follow with a creative services writer but has seen Dr. Isaac in the past. We have been asked to see in consultation for cardiac clearance. Patient presents emergency department with abdominal pain. Patient states at home he has been having symptoms of diffuse abdominal pain and constipation. He denies any nausea, vomiting, chest pain, shortness of breath, lightheadedness, dizziness or palpitations. CT abdomen and pelvis revealed sigmoid diverticulitis with perforation and extraluminal air adjacent to the anterior right side of the sigmoid colon. Surgery was consulted to see patient. No known definitive plans for surgery at this time. Patient denies any history of CAD, ND, Stroke, Diabetes. Denies history of GI ulcers or any gastric surgeries. He is a current smoker, smokes 1.5PPD. DIAGNOSTICS -EKG reveals sinus rhythm HR 79, no ST-T wave abnormalities to suggest ischemia -CT Abdomen/Pelvis report revealed sigmoid diverticulitis with perforation and extraluminal air adjacent to the anterior right side of the sigmoid colon. No free air in the abdomen. Inflammatory changes. No fluid collection. -Laboratory reviewed, WBC 21.6, hemoglobin 14.1, platelets 230, sodium 138, potassium 4.3, BUN 0.2, serum creatinine 1.3, magnesium 1.8 -Current home medications include lisinopril 20 mg nightly, amlodipine 5 mg n ightly, Flomax, Cialis, nicotine patch, Plavix 75 mg daily, atorvastatin 40 mg nightly, aspirin 81mg daily -Echocardiogram in 2017 revealed EF 5560%, mild tricuspid regurgitation REVIEW OF SYSTEMS At the time of my exam: CONSTITUTIONAL: Denies fever or chills. CARDIOVASCULAR: Denies chest pain, shortness of breath, orthopnea, PND or palpitations. RESPIRATORY: Denies cough. GASTROINTESTINAL: Denies abdominal pain, diarrhea, constipation, nausea or vomiting. MUSCULOSKELETAL: Denies myalgias. NEUROLOGIC: Denies numbness, tingling, headacbe or weakness. ENDOCRINE: Denies fatigue, weight change, polydipsia or polyurina. GENITOURINARY: Denies burning, hematuria or urgency with micturation. HEMATOLOGIC: Denies history of anemia or bleeding. PHYSICAL EXAMINATION Blood pressure 110/55, heart 85, temp 99.4, oxygen saturations 96% on room air CONSTITUTIONAL: No apparent distress. HEENT: Head is normocephalic. Pupils are equal, round. Sclerae anicteric. Mucous membranes of the mouth are moist. No JVD. No carotid bruit. CHEST EXAMINATION: Lungs are clear to auscultation. No chest wall tenderness is noted on palpation or with deep breathing. HEART EXAMINATION: Regular rate and rhythm. S1, S2 heard. No murmurs, gallops or rub. ABDOMEN: Soft, nontender. Positive bowel sounds. EXTREMITIES: 2+ peripheral pulses, no lower extremity edema and no calf tenderness. NEUROLOGIC EXAMINATION: Patient is awake, alert and oriented x3. ASSESSMENT Sigmoid diverticulitis with perforation reported on CT scan Hypertension Dyslipidemia Peripheral vascular disease disease with prior stenting by Dr. Isaac few years ago per patient Chronic nicotine dependence PLAN -EKG reviewed -Obtain 2D echocardiogram and doppler study to assess cardiac structure and function. -Patient is at adequate risk for surgery. Patient is hemodynamically stable. Patient is able to perform >4 METs levels of activity and does have any acute cardiac conditions. There are no absolute contraindications to undergo surgery at this time. Nurse practitioner note has been reviewed by physician. Signing provider agrees with the documented findings, assessment, and plan of care. Past Medical History Past Medical History: Hyperlipidemia, Hypertension, Osteoarthritis (OA) Additional Past Medical History / Comment(s): PAD History of Any Multi-Drug Resistant Organisms: None Reported Additional Past Surgical History / Comment(s): PTBA WITH STENT-2015, COLONOSCOPY Past Anesthesia/Blood Transfusion Reactions: No Reported Reaction Past Psychological History: No Psychological Hx Reported Smoking Status: Current every day smoker Past Alcohol Use History: Rare Additional Past Alcohol Use History / Comment(s): STARTED SMOKING AT AGE 15 SMOKES 1 - 1 1/2 PPD Past Drug Use History: Marijuana - Past Family History Father Family Medical History: Cancer Medications and Allergies Home Medications Medication Instructions Recorded Confirmed Type Aspirin EC [Ecotrin Low Dose] 81 mg PO HS 02/09/20 01/03/22 History Clopidogrel [Plavix] 75 mg PO HS 02/09/20 01/03/22 History Tamsulosin [Flomax] 0.4 mg PO HS 02/09/20 01/03/22 History lisinopriL [Zestril] 20 mg PO HS 02/09/20 01/03/22 History Atorvastatin [Lipitor] 40 mg PO HS 01/03/22 01/03/22 History Cholecalciferol [Vitamin D3 (25 25 mcg PO HS 01/03/22 01/03/22 History Mcg = 1000 Iu)] Nicotine 14Mg/24Hr Patch [Habitrol 1 patch TRANSDERM DAILY 01/03/22 01/03/22 History 14Mg/24Hr Patch] Tadalafil [Cialis] 10 mg PO DAILY PRN 01/03/22 01/03/22 History Testosterone [Androgel 1% Gel Pump] 2 applic TOPICAL DAILY 01/03/22 01/03/22 History amLODIPine [Norvasc] 5 mg PO HS 01/03/22 01/03/22 History Allergies Allergy/AdvReac Type Severity Reaction Status Date / Time No Known Allergies Allergy Verified 01/03/22 06:43 Physical Exam Vitals: Vital Signs Temp Pulse Pulse Resp BP BP Pulse Ox 01/03/22 07:12 99.4 F 85 17 110/55 96 01/03/22 03:23 98.2 F 97 16 149/60 97 01/03/22 03:02 96 20 109/51 95 01/02/22 20:59 99.6 F 98 16 117/63 99 Intake and Output 01/02/22 01/03/22 01/03/22 22:59 06:59 14:59 Other: # Voids 1 Weight 83.915 kg 83.915 kg Results 01/03/22 01:37 01/03/22 01:37 Cardiac Enzymes 01/03/22 Range/Units 01:37 AST 19 (17-59) U/L CBC 01/03/22 Range/Units 01:37 WBC 21.6 H (3.8-10.6) k/uL RBC 4.40 (4.30-5.90) m/uL Hgb 14.1 (13.0-17.5) gm/dL Hct 41.4 (39.0-53.0) % Plt Count 230 (150-450) k/uL Comprehensive Metabolic Panel 01/03/22 Range/Units 01:37 Sodium 138 (137-145) mmol/L Potassium 4.3 (3.5-5.1) mmol/L Chloride 107 (98-107) mmol/L Carbon Dioxide 21 L (22-30) mmol/L BUN 22 H (9-20) mg/dL Creatinine 1.39 H (0.66-1.25) mg/dL Glucose 119 H (74-99) mg/dL Calcium 9.1 (8.4-10.2) mg/dL AST 19 (17-59) U/L ALT 17 (4-49) U/L Alkaline Phosphatase 141 H (38-126) U/L Total Protein 7.0 (6.3-8.2) g/dL Albumin 4.2 (3.5-5.0) g/dL Current Medications Generic Name Dose Route Start Last Admin Trade Name Freq PRN Reason Stop Dose Admin Amlodipine Besylate 5 mg 01/03/22 21:00 Amlodipine 5 Mg Tab PO HS [facility] Atorvastatin Calcium 40 mg 01/03/22 21:00 Atorvastatin 40 Mg Tab PO HS [facility] Cholecalciferol 25 mcg 01/03/22 21:00 Cholecalciferol 25 Mcg (1000 Iu) Tablet PO HS [facility] Hydromorphone HCl 1 mg 01/03/22 09:55 01/03/22 10:00 Hydromorphone 1 Mg/Ml 1 Ml Syringe IVP 1 mg Q3HR PRN Administration Pain Ampicillin Sodium/Sulbactam 100 mls @ 200 mls/hr 01/03/22 11:00 Sodium 3 gm/ Sodium Chloride IVPB Q8H SARAH Protocol Sodium Chloride 1,000 mls @ 130 mls/hr 01/03/22 01:45 01/03/22 02:39 Saline 0.9% IV 130 mls/hr .[id number] SARAH Administration Metronidazole 500 mg/ IV 100 mls @ 100 mls/hr 01/03/22 06:45 01/03/22 07:47 Solution IVPB 100 mls/hr Q6HR SARAH Administration Protocol Lisinopril 20 mg 01/03/22 21:00 Lisinopril 20 Mg Tab PO HS [facility] Naloxone HCl 0.2 mg 01/03/22 01:44 Naloxone 0.4 Mg/Ml 1 Ml Vial IV Q2M PRN Opioid Reversal Nicotine 1 patch 01/03/22 09:00 01/03/22 08:37 Nicotine 14mg/24hr Patch TRANSDERM Not Given DAILY [facility] Ondansetron HCl 4 mg 01/03/22 01:44 Ondansetron 4 Mg/2 Ml Vial IVP Q8HR PRN Nausea And Vomiting Pantoprazole Sodium 40 mg 01/03/22 09:00 01/03/22 07:47 Pantoprazole 40 Mg/10 Ml Vial IV 40 mg DAILY SARAH Administration Tamsulosin HCl 0.4 mg 01/03/22 21:00 Tamsulosin 0.4 Mg Cap.Er.24h PO HS [facility] Intake and Output 01/02/22 01/03/22 01/03/22 22:59 06:59 14:59 Other: # Voids 1 Weight 83.915 kg 83.915 kg 01/03/22 01:37 01/03/22 01:37
--- NOTE | 2022-01-03 14:03 | P.CONS ---
History of Present Illness - Reason for Consult Consult date: 01/03/22 Medical Management Requesting physician: Sandra Turcios - Chief Complaint Abdominal Pain - History of Present Illness History of Presenting Illness: Patient is a very pleasant 61-year-old male with a past medical history of hy pertension, hyperlipidemia, peripheral vascular disease with stenting, BPH, diverticulosis, and nicotine dependence. He presented to the emergency department on 01/03/22 with a chief complaint of severe abdominal pain accompanied by constipation and low-grade fevers. Patient underwent full evaluation and was found to have significant leukocytosis with WBC count of 21.6, elevated renal function with BUN of 22, creatinine 1.39, and GFR 54 as well as elevated alkaline phosphatase of 141. Vital signs as follows: Temp 99.6F, heart rate 98, respiratory rate 16, blood pressure 117/63, and SpO2 of 99% on room air. EKG was completed showing normal sinus rhythm at 79 bpm with no noted T wave or ST abnormality showing no signs of acute ischemia. KUB revealed stool burden/colonic gas, and nonobstructive bowel gas pattern. CT abdomen and pelvis without contrast revealed sigmoid diverticulitis with perforation and extraluminal air adjacent to the anterior right side of the sigmoid colon. Patient was started on IV antibiotics with Flagyl and Unasyn and admitted under Gen. surgery team and we have been consulted for continued medical management throughout hospitalization. Patient was seen and fully evaluated at bedside this morning. Patient currently reporting left lowerquadrant abdominal pain accompanied by nausea. He denied any vomiting, flatus, or bowel movements today. Patient also denied having any other complaints including chills, headache, lightheadedness, dizziness, chest pain, palpitations, shortness of breath, hematochezia, melena, or experiencing any difficulties with or changes in his urinary function. Review of systems: Pertinent positives and negatives as discussed in HPI, a complete review of systems was performed and all other systems are negative. Physical exam: Vital signs reviewed and stable. General: Nontoxic, no distress and appears stated age. Derm: Skin warm and dry, normal coloration for ethnicity. Head: Atraumatic, normocephalic and symmetric. Eyes: EOMs intact, no lid lag, and anicteric sclera Mouth: no lip lesions, mucus membranes moist Cardiovascular: regular rate and rhythm with normal S1S2, no murmur, positive posterior tibial pulses bilaterally, and cap refill < 2 seconds. Lungs: Respirations even, regular, and unlabored on room air. Lungs CTA bilaterally, no rhonchi, no rales, no wheezing, and no accessory muscle usage. Abdominal: soft, and diffusely tender throughout left upper and lower quadrant (worse left lower quadrant) upon palpation, no guarding, no appreciable organomegaly Ext: ROM intact. No gross muscle atrophy, no edema, no contractures Neuro: Speech clear, face symmetrical and CN II-XII grossly intact with no noted focal neuro deficits Psych: Alert and oriented to person, place, time, and situation. Appropriate and pleasant affect. Assessment and Plan of Care: Acute sigmoid diverticulitis with perforation Intractable Abdominal pain secondary to above -NPO with the exception of medications until further directed by general surgery team. -Hold Plavix and aspirin until further cleared by general surgery team to resume -Maintain IV fluid hydration -Continue PPI with Protonix 40 mg IVP daily -Continuation of IV antibiotics as ordered by primary admitting general surgery team Elizan and yl. -Symptomatic care and pain management with Zofran as needed for nausea/vomiting and Dilaudid for pain. -Gen. surgery managing and recommending conservative management at this time. Hypertension -Monitor vital signs and continue daily medication regimen with amlodipine and lisinopril. Hyperlipidemia -Continue daily medication regimen with atorvastatin 40 mg nightly. Peripheral vascular disease with previous stenting -Hold aspirin and Plavix at this time until further cleared by general surgery to resume. -Lovenox for DVT prophylaxis as okayed by general surgery team. BPH -Continue daily medication regimen with Flomax. Nicotine dependence -Continue to encourage and educate patient on the importance of smoking ce ssation and the risks of continued use. -Nicotine patch -Incentive spirometry. Thank you for allowing us to participate in the care of this pleasant patient. Do not hesitate to contact us with questions. Someone can be reached from the [facility] hospitalist group all hours of the day at [phone] or via [employer]. Past Medical History Past Medical History: Hyperlipidemia, Hypertension, Osteoarthritis (OA) Additional Past Medical History / Comment(s): PAD History of Any Multi-Drug Resistant Organisms: None Reported Additional Past Surgical History / Comment(s): PTBA WITH STENT-2016, COLONOSCOPY Past Anesthesia/Blood Transfusion Reactions: No Reported Reaction Past Psychological History: No Psychological Hx Reported Smoking Status: Current every day smoker Past Alcohol Use History: Rare Additional Past Alcohol Use History / Comment(s): STARTED SMOKING AT AGE 15 SMOKES 1 - 1 1/2 PPD Past Drug Use History: Marijuana - Past Family History Father Family Medical History: Cancer Medications and Allergies Home Medications Medication Instructions Recorded Confirmed Type Aspirin EC [Ecotrin Low Dose] 81 mg PO HS 02/09/20 01/03/22 History Clopidogrel [Plavix] 75 mg PO HS 02/09/20 01/03/22 History Tamsulosin [Flomax] 0.4 mg PO HS 02/09/20 01/03/22 History lisinopriL [Zestril] 20 mg PO HS 02/09/20 01/03/22 History Atorvastatin [Lipitor] 40 mg PO HS 01/03/22 01/03/22 History Cholecalciferol [Vitamin D3 (25 25 mcg PO HS 01/03/22 01/03/22 History Mcg = 1000 Iu)] Nicotine 14Mg/24Hr Patch [Habitrol 1 patch TRANSDERM DAILY 01/03/22 01/03/22 History 14Mg/24Hr Patch] Tadalafil [Cialis] 10 mg PO DAILY PRN 01/03/22 01/03/22 History Testosterone [Androgel 1% Gel Pump] 2 applic TOPICAL DAILY 01/03/22 01/03/22 History amLODIPine [Norvasc] 5 mg PO HS 01/03/22 01/03/22 History Allergies Allergy/AdvReac Type Severity Reaction Status Date / Time No Known Allergies Allergy Verified 01/03/22 06:43 Physical Exam Vitals: Vital Signs Temp Pulse Pulse Resp BP BP Pulse Ox 01/03/22 07:12 99.4 F 85 17 110/55 96 01/03/22 03:23 98.2 F 97 16 149/60 97 01/03/22 03:02 96 20 109/51 95 01/02/22 20:59 99.6 F 98 16 117/63 99 Intake and Output 01/02/22 01/03/22 01/03/22 22:59 06:59 14:59 Other: # Voids 1 Weight 83.915 kg 83.915 kg Results CBC & Chem 7: 01/03/22 01:37 01/03/22 01:37 Labs: Abnormal Lab Results - Last 24 Hours (Table) 01/03/22 01/03/22 Range/Units 01:37 01:37 WBC 21.6 H (3.8-10.6) k/uL Neutrophils # 19.2 H (1.3-7.7) k/uL Carbon Dioxide 21 L (22-30) mmol/L BUN 22 H (9-20) mg/dL Creatinine 1.39 H (0.66-1.25) mg/dL Glucose 119 H (74-99) mg/dL Alkaline Phosphatase 141 H (38-126) U/L
[2022-01-03] MEDS: ENOXAPARIN 40 MG/0.4 ML SYRINGE SQ SCH (14:06)
--- NOTE | 2022-01-03 18:05 | XR ---
EXAMINATION TYPE: XR chest 2V DATE OF EXAM: 01/03/2022 COMPARISON: None HISTORY: 61-year-old male preoperative clearance TECHNIQUE: PA and lateral views FINDINGS: Heart upper limits of normal in size. Aorta and pulmonary vasculature within normal limits. Some cent ral peribronchial cuffing is noted. Mild patchy density at the cardiac apex. Otherwise, no consolidat ion or pleural effusion. Prominent bilateral first rib ends. IMPRESSION: 1. Some central peribronchial cuffing may be seen with bronchitis or chronic asthma. 2. Some patchy inferior lingular opacity. Patchy atelectasis is favored over an early infiltrate. Cor relate with patient's symptoms.
[2022-01-03] MEDS: lisinopriL 20 MG TAB PO SCH (20:02)
[2022-01-03] MEDS: TAMSULOSIN 0.4 MG CAP.ER.24H PO SCH (20:02)
[2022-01-03] MEDS: amLODIPine 5 MG TAB PO SCH (20:02)
[2022-01-03] MEDS: ATORVASTATIN 40 MG TAB PO SCH (20:02)
[2022-01-03] MEDS: CHOLECALCIFEROL 25 MCG (1000 IU) TABLET PO SCH (20:02)
[2022-01-04] MEDS: HYDROmorphone 1 MG/ML 1 ML SYRINGE IVP PRN ×4 (00:10→12:33)
[2022-01-04] MEDS: metroNIDAZOLE-NS PMX 500 MG in SALINE 1 100ML.BAG IVPB SCH ×5 (00:11→23:19)
[2022-01-04] MEDS: AMPICILLIN-SULBACTAM 3 GM in SODIUM CHLORIDE 0.9% 100 ML IVPB SCH ×3 (02:22→19:00)
[2022-01-04] MEDS: PANTOPRAZOLE 40 MG/10 ML VIAL IV SCH (07:52)
[2022-01-04] MEDS: ENOXAPARIN 40 MG/0.4 ML SYRINGE SQ SCH (07:52)
[2022-01-04] MEDS: SODIUM CHLORIDE 0.9% 1,000 ML IV SCH ×2 (07:52→18:49)
[2022-01-04] MEDS: NICOTINE 14MG/24HR PATCH TRANSDERM SCH (07:53)
[2022-01-04 08:47] LABS: Basophils # (A) 0.06 X 10*3/uL (0.00-0.10); Basophils % (A) 0.4 %; Eosinophils % (A) 0.6 %; HCT 34.6 % (39.6-50.0); HGB 11.4 g/dL (13.0-17.0); Immature Grans, Automated 0.4 %; Lymphocytes # (A) 1.63 X 10*3/uL (0.90-5.00); Lymphocytes % (A) 10.1 %; MCH 30.5 pg (27.0-32.0); MCHC 32.9 g/dL (32.0-37.0); MCV 92.5 fL (80.0-97.0); Mean Platelet Volume 11.7 fL (9.5-12.2); Monocytes # (A) 1.17 X 10*3/uL (0.20-1.00); Monocytes % (A) 7.3 %; NRBC Per 100 WBC 0 /100 WBCS (0.0-0.0); Neutrophils # (A) 13.07 X 10*3/uL (1.80-7.70); Neutrophils % (A) 81.2 %; Platelet Count 216 X 10*3/uL (140-440); RBC 3.74 X 10*6/uL (4.40-5.60); RDW 13.8 % (11.5-14.5)
[2022-01-04 09:04] LABS: African American GFR (CKD) 61.5 (60.0-200.0); Albumin 3.1 g/dL (3.8-4.9); Albumin/Globulin Ratio 1.48 (1.60-3.17); Anion Gap 9.6 mmol/L (10.00-18.00); BUN/Creat Ratio 14.36 Ratio (12.00-20.00); Blood Urea Nitrogen 20.1 mg/dL (9.0-27.0); Calcium 8.1 mg/dL (8.7-10.3); Carbon Dioxide 19.4 mmol/L (20.0-27.5); Globulin 2.1 g/dL (1.6-3.3); Magnesium 2.2 mg/dL (1.5-2.4); Non-African American GFR(CKD) 53.1 (60.0-200.0); Phosphorus 1.9 mg/dL (2.4-5.1); Potassium 4.1 mmol/L (3.5-5.5); Total Bilirubin 0.6 mg/dL (0.30-1.20); Total Protein 5.2 g/dL (6.2-8.2)
--- NOTE | 2022-01-04 10:37 | CA ---
Transthoracic Echo Report Name: Lm Malone Age: 61 Gender: M : 1960 Exam Date: 01/03/2022 11:29 Exam Location: [place] [facility] Ht (in): 65 Wt (lb): 185 Ordering Physician: Kayla Diaz Attending/Referring Phys: Continuity Tester Milana Barrera RDCS Procedure CPT: Indications: Cardiac clearance Cardiac Hx: Technical Quality: Good Contrast 1: Total Dose (mL): Contrast 2: Total Dose (mL): MEASUREMENTS (Male / Female) Normal Values 2D ECHO LV Diastolic Diameter PLAX 4.9 cm 4.2 - 5.9 / 3.9 - 5.3 cm LV Systolic Diameter PLAX 3.1 cm IVS Diastolic Thickness 1.0 cm 0.6 - 1.0 / 0.6 - 0.9 cm LVPW Diastolic Thickness 1.0 cm 0.6 - 1.0 / 0.6 - 0.9 cm LV Relative Wall Thickness 0.4 RV Internal Dim ED PLAX 3.0 cm LA Systolic Diameter LX 3.9 cm 3.0 - 4.0 / 2.7 - 3.8 cm LA Volume 61.6 cm??? 18 - 58 / 22 - 52 cm??? M-MODE Aortic Root Diameter MM 3.2 cm MV E Point Septal Separation 1.5 cm AV Cusp Separation MM 2.2 cm DOPPLER AV Peak Velocity 161.4 cm/s AV Peak Gradient 10.4 mmHg AI Peak Velocity 408.7 cm/s AI Peak Gradient 66.8 mmHg AI Pressure Half Time 392.0 ms MV Area PHT 4.5 cm??? Mitral E Point Velocity 88.5 cm/s Mitral A Point Velocity 59.4 cm/s Mitral E to A Ratio 1.5 MV Deceleration Time 167.8 ms TR Peak Velocity 292.4 cm/s TR Peak Gradient 34.2 mmHg Right Ventricular Systolic Press 39.2 mmHg FINDINGS Left Ventricle Normal left ventricular size, wall thickness, systolic function with no obvious regional wall motion abnormalities. Normal left ventricular diastolic filling pattern for age. The ejection fraction is visually estimated at 60-65 %. Right Ventricle The right ventricle is normal in size and function. Mild pulmonary hypertension. Right Atrium The right atrium is normal in size. Left Atrium The left atrium is normal in size. Mildly increased left atrial volume. Mitral Valve Structurally normal mitral valve without significant stenosis or prolapse. Trace to mild mitral regurgitation. Aortic Valve Focal thickening of the aortic valve cusps. Moderate aortic regurgitation. Tricuspid Valve Structurally normal tricuspid valve without significant stenosis Pulmonic Valve Trace pulmonic regurgitation. Pericardium Normal pericardium without effusion. Aorta Normal aortic root dimension. CONCLUSIONS Normal left ventricular dimension and systolic function Aortic sclerosis. Moderate aortic insufficiency Mild mitral regurgitation See above for further details Previewed by: Dr. Brady Friend MD (Electronically Signed) Final Date: 04 Jan 2022 10:36
[2022-01-04] MEDS ORDERED: SODIUM CHLORIDE 0.9% 2,000 ML IV ONE (14:20)
--- NOTE | 2022-01-04 14:32 | P.PN ---
Subjective Progress Note Date: 01/04/22 Hospital course: Patient is a very pleasant 61-year-old male with a past medical history of hypertension, hyperlipidemia, peripheral vascular disease with stenting, BPH, diverticulosis, and nicotine dependence. He presented to the emergency department on 01/03/22 with a chief complaint of severe abdominal pain accompanied by constipation and low-grade fevers. Patient underwent full evaluation and was found to have significant leukocytosis with WBC count of 21 .6, elevated renal function with BUN of 22, creatinine 1.39, and GFR 54 as well as elevated alkaline phosphatase of 141. Vital signs as follows: Temp 99.6F, heart rate 98, respiratory rate 16, blood pressure 117/63, and SpO2 of 99% on room air. EKG was completed showing normal sinus rhythm at 79 bpm with no noted T wave or ST abnormality showing no signs of acute ischemia. KUB revealed stool burden/colonic gas, and nonobstructive bowel gas pattern. CT abdomen and pelvis without contrast revealed sigmoid diverticulitis with perforation and extraluminal air adjacent to the anterior right side of the sigmoid colon. Patient was started on IV antibiotics with Flagyl and Unasyn and admitted under Gen. surgery team and we have been consulted for continued medical management throughout hospitalization. Physical exam: Patient seen and fully evaluated at bedside this morning. Condition appears to have improved. Patient reports continued diffuse abdominal discomfort greater in left lower quadrant, but does report that it has improved since admission. Patient reports that he has been passing flatus but denies having any actual bowel movement since arrival to facility. WBCs improving down to 16.10 this morning. Echocardiogram completed revealing an EF of 60-65% with aortic sclerosis, moderate aortic insufficiency, and mitral valve regurgitation. Patient remains nothing by mouth with the exception of ice chips and popsicles and continues to receive IV hydration with 0.9% normal saline at 130 mL per hour and remains on IV antibiotics with Flagyl and Unasyn. Vital signs reviewed and stable. General: Nontoxic, no distress and appears stated age. Derm: Skin warm and dry, normal coloration for ethnicity. Head: Atraumatic, normocephalic and symmetric. Eyes: EOMs intact, no lid lag, and anicteric sclera Mouth: no lip lesions, mucus membranes moist Cardiovascular: regular rate and rhythm with normal S1S2, no murmur, positive posterior tibial pulses bilaterally, and cap refill < 2 seconds. Lungs: Respirations even, regular, and unlabored on room air. Lungs CTA bilaterally, no rhonchi, no rales, no wheezing, and no accessory muscle usage. Abdominal: soft, tenderness to left lower quadrant upon palpation, no guarding, no appreciable organomegaly Ext: ROM intact. No gross muscle atrophy, no edema, no contractures Neuro: Speech clear, face symmetrical and CN II-XII grossly intact with no noted focal neuro deficits Psych: Alert and oriented to person, place, time, and situation. Appropriate and pleasant affect. Assessment and Plan of Care: Acute sigmoid diverticulitis with perforation Intractable Abdominal pain secondary to above -NPO with the exception of medications, ice chips, and popsicles until further directed by general surgery team. -Hold Plavix and aspirin until further cleared by general surgery team to resume -Maintain IV fluid hydration -Continue PPI with Protonix 40 mg IVP daily -Continuation of IV antibiotics as ordered by primary admitting general surgery team Unasyn and Flagyl. -Symptomatic care and pain management with Zofran as needed for nausea/vomiting and Dilaudid for pain. -Gen. surgery managing and recommending conservative management at this time. -DVT prophylaxis with Lovenox. Hypertension -Monitor vital signs and continue daily medication regimen with amlodipine and lisinopril. Hyperlipidemia -Continue daily medication regimen with atorvastatin 40 mg nightly. Peripheral vascular disease with previous stenting -Hold aspirin and Plavix at this time until further cleared by general surgery to resume. -Lovenox for DVT prophylaxis as okayed by general surgery team. BPH -Continue daily medication regimen with Flomax. Nicotine dependence -Continue to encourage and educate patient on the importance of smoking cessation and the risks of continued use. -Nicotine patch -Incentive spirometry. Thank you for allowing us to participate in the care of this pleasant patient. Do not hesitate to contact us with questions. Someone can be reached from the [facility] hospitalist group all hours of the day at [phone] or via [employer]. Objective - Vital Signs Vital signs: Vital Signs Temp 98.8 F 01/04/22 07:24 Pulse 80 01/04/22 07:24 Resp 18 01/04/22 07:24 BP 113/67 01/04/22 07:24 Pulse Ox 92 L 01/04/22 07:24 Intake & Output 0501/04/22 01/04/22 18:59 06:59 18:59 Intake Total 2098 Output Total 225 Balance 2098 - Intake: Intake, IV Titration 2098 Amount Sodium Chloride 0.9% 1, 1000 000 ml @ 130 mls/hr IV . Q7H42M [facility] Rx#:[id number] Sodium Chloride 0.9% 1, 999 000 ml @ 999 mls/hr IV . Q1H1M ONE Rx#:[id number] metroNIDAZOLE-NS PMX 500 100 mg In Saline 1 100ml.bag @ 100 mls/hr IVPB Q6HR [facility] Rx#:[id number] Output: Urine 225 Other: Voiding Method Urinal # Voids 1 2 - Labs CBC & Chem 7: 01/04/22 05:32 01/04/22 05:32 Labs: Abnormal Lab Results - Last 24 Hours (Table) 01/04/22 01/04/22 Range/Units 05:32 05:32 WBC 16.10 H (4.50-10.00) X 10*3/uL RBC 3.74 L (4.40-5.60) X 10*6/uL Hgb 11.4 L (13.0-17.0) g/dL Hct 34.6 L (39.6-50.0) % Immature Gran # 0.07 H (0.00-0.04) X 10*3/uL Neutrophils # 13.07 H (1.80-7.70) X 10*3/uL Monocytes # 1.17 H (0.20-1.00) X 10*3/uL Chloride 111 H (96-109) mmol/L Carbon Dioxide 19.4 L (20.0-27.5) mmol/L Anion Gap 9.60 L (10.00-18.00) mmol/L Est GFR (CKD-EPI)NonAf 53.1 L (60.0-200.0) Calcium 8.1 L (8.7-10.3) mg/dL Phosphorus 1.9 L (2.4-5.1) mg/dL Total Protein 5.2 L (6.2-8.2) g/dL Albumin 3.1 L (3.8-4.9) g/dL Albumin/Globulin Ratio 1.48 L (1.60-3.17) g/dL Microbiology - Last 24 Hours (Table) 01/03/22 02:25 Blood Culture - Preliminary Blood No Growth after 24 hours 01/03/22 02:40 Blood Culture - Preliminary Blood No Growth after 24 hours
[2022-01-04] MEDS: GABAPENTIN 300 MG CAP PO SCH ×2 (15:10→21:35)
[2022-01-04] MEDS: ACETAMINOPHEN TAB 500 MG TAB PO SCH ×2 (15:10→23:19)
--- NOTE | 2022-01-04 15:19 | P.PN ---
Subjective Progress Note Date: 01/04/22 CHIEF COMPLAINT: Perforated diverticulitis HISTORY OF PRESENT ILLNESS: Patient is complaining of abdominal pain. He does report the pain is slightly better than yesterday. He had rated his pain about a 4 out of 10. He is having flatus. Denies any vomiting. The Dilaudid has been making patient feel more nauseous and urine has been dark. He is afebrile. White count trending down from 21-16 hemoglobin 11.4 sodium is 140 potassium is 4.1 creatinine is 1.4 chest x-ray some central peribronchial cuffing may be seen with bronchitis or chronic asthma. Some patchy inferior lingular opacity. Patchy atelectasis is favored over early infiltrate. PHYSICAL EXAM: VITAL SIGNS: Reviewed GENERAL: Well-developed in no acute distress. HEENT: No sclera icterus. Extraocular movements grossly intact. Moist buccal mucosa. Head is atraumatic, normocephalic. Hears conversational speech. No nasal drainag e. NECK: Supple without lymphadenopathy. CHEST: Non-labored respirations and equal bilateral excursions. CARDIOVASCULAR: Palpable 2+ radial pulses. ABDOMEN: Soft. Nondistended. Tenderness with palpation of the left lower quadrant MUSCULOSKELETAL: No clubbing or cyanosis. NEUROLOGIC: No focal or lateralizing signs. Cranial nerves II through XII grossly intact. PSYCH: Appropriate affect. Alert and oriented to person, place and time. SKIN: Well perfused. Good skin turgor. ASSESSMENT: 1. Acute sigmoid diverticulitis with perforation 2. Leukocytosis 3. Nicotine dependence 4. History of peripheral arterial disease with stent and on Plavix at home 5. Hypertension 6. Hyperlipidemia 7. Atelectasis PLAN: -Continue conservative management for now with IV antibiotics -Keep patient nothing by mouth except for ice chips and popsicles -Continue to monitor CBC -Continue pain management. We'll add gabapentin 300 mg 3 times a day and Tylenol 1000mg every 6 hours scheduled. And continue Dilaudid sparingly only for breakthrough pain -Give 2 L fluid bolus -Discussed smoking cessation -Added incentive spirometer -Continue to hold Plavix for possible surgical intervention -DVT prophylaxis Lovenox Physician Soda Fountain Operator note has been reviewed by physician. Signing provider agrees with the documented findings, assessment, and plan of care. CHIEF COMPLAINT: Perforated diverticulitis HISTORY OF PRESENT ILLNESS: The patient is a 61 year old male who comes in with perforated diverticulitis. Since admission, he reports some improvement of his abdominal pain. No bowel movements. No nausea. REVIEW OF ORGAN SYSTEMS: No fevers or chills. No nausea or vomiting. No chest pain. PHYSICAL EXAM: VITALS: Reviewed CONSTITUTIONAL: Well developed and in no acute distress. EYES: Conjuctivae without sclera icterus. Extraocular movements grossly intact. HEAD, EARS, NOSE, THROAT: Moist buccal mucosa. Head is atraumatic, normocephalic. Hears conversational speech. No nasal drainage. RESPIRATORY: Non-labored respirations and equal bilateral excursions. No gross wheezes. CARDIOVASCULAR: Regular rate and rhythm. Extremities without moderate edema. Palpable 2+ radial pulses. ABDOMEN: Tender left lower quadrant. MUSCULOSKELETAL: No clubbing cyanosis or edema. SKIN: Warm and well perfused with good skin turgor. NEUROLOGIC: Cranial nerves II through XII grossly intact. No focal or lateralizing signs. PSYCH: Appropriate affect. Alert and oriented to person, place and time. Displays appropriate insight. CLINCAL LABS: Reviewed. WBC 21.6 and elevated on admission with leukocytosis. Creatnine elevated 1.4 ASSESSMENT: 1. Perforated sigmoid diverticulitis 2. Leukocytosis 3. History of colon polyp 4. Tobacco abuse disorder 5. Hypertensive heart disease 6. Peripheral vascular occlusive disease 7. Elevated creatinine due to dehydration PLAN: 1. Continue NPO 2. Continue IV antibiotics 3. IV fluid hydration for dehydration with elevated creatinine Objective - Vital Signs Vital signs: Vital Signs Temp 98.8 F 01/04/22 07:24 Pulse 80 01/04/22 07:24 Resp 18 01/04/22 07:24 BP 113/67 01/04/22 07:24 Pulse Ox 92 L 01/04/22 07:24 Intake & Output 01/03/22 01/04/22 01/04/22 18:59 06:59 18:59 Intake Total 2098 Output Total 225 Balance 2098 - Intake: Intake, IV Titration 2098 Amount Sodium Chloride 0.9% 1, 1000 000 ml @ 130 mls/hr IV . Q7H42M [facility] Rx#:[id number] Sodium Chloride 0.9% 1, 999 000 ml @ 999 mls/hr IV . Q1H1M [facility] Rx#:[id number] metroNIDAZOLE-NS PMX 500 100 mg In Saline 1 100ml.bag @ 100 mls/hr IVPB Q6HR [facility] Rx#:[id number] Output: Urine 225 Other: Voiding Method Urinal # Voids 1 2 - Labs CBC & Chem 7: 01/05/22 03:53 01/05/22 03:53 Labs: Abnormal Lab Results - Last 24 Hours (Table) 01/04/22 01/04/22 Range/Units 05:32 05:32 WBC 16.10 H (4.50-10.00) X 10*3/uL RBC 3.74 L (4.40-5.60) X 10*6/uL Hgb 11.4 L (13.0-17.0) g/dL Hct 34.6 L (39.6-50.0) % Immature Gran # 0.07 H (0.00-0.04) X 10*3/uL Neutrophils # 13.07 H (1.80-7.70) X 10*3/uL Monocytes # 1.17 H (0.20-1.00) X 10*3/uL Chloride 111 H (96-109) mmol/L Carbon Dioxide 19.4 L (20.0-27.5) mmol/L Anion Gap 9.60 L (10.00-18.00) mmol/L Est GFR (CKD-EPI)NonAf 53.1 L (60.0-200.0) Calcium 8.1 L (8.7-10.3) mg/dL Phosphorus 1.9 L (2.4-5.1) mg/dL Total Protein 5.2 L (6.2-8.2) g/dL Albumin 3.1 L (3.8-4.9) g/dL Albumin/Globulin Ratio 1.48 L (1.60-3.17) g/dL Microbiology - Last 24 Hours (Table) 01/03/22 02:25 Blood Culture - Preliminary Blood No Growth after 24 hours 01/03/22 02:40 Blood Culture - Preliminary Blood No Growth after 24 hours
[2022-01-04] MEDS: amLODIPine 5 MG TAB PO SCH (20:11)
[2022-01-04] MEDS: ATORVASTATIN 40 MG TAB PO SCH (20:11)
[2022-01-04] MEDS: CHOLECALCIFEROL 25 MCG (1000 IU) TABLET PO SCH (20:11)
[2022-01-04] MEDS: lisinopriL 20 MG TAB PO SCH (20:11)
[2022-01-04] MEDS: TAMSULOSIN 0.4 MG CAP.ER.24H PO SCH (20:11)
[2022-01-05] MEDS: SODIUM CHLORIDE 0.9% 1,000 ML IV SCH ×3 (01:10→16:50)
[2022-01-05] MEDS: AMPICILLIN-SULBACTAM 3 GM in SODIUM CHLORIDE 0.9% 100 ML IVPB SCH (02:54)
[2022-01-05] MEDS: NICOTINE 14MG/24HR PATCH TRANSDERM SCH (07:44)
[2022-01-05] MEDS: PANTOPRAZOLE 40 MG/10 ML VIAL IV SCH (07:48)
[2022-01-05] MEDS: metroNIDAZOLE-NS PMX 500 MG in SALINE 1 100ML.BAG IVPB SCH ×4 (07:50→23:37)
[2022-01-05] MEDS: ACETAMINOPHEN TAB 500 MG TAB PO SCH ×4 (07:50→23:37)
[2022-01-05] MEDS: GABAPENTIN 300 MG CAP PO SCH ×3 (07:51→20:55)
[2022-01-05] MEDS: ENOXAPARIN 40 MG/0.4 ML SYRINGE SQ SCH (07:51)
[2022-01-05 09:44] LABS: Basophils # (A) 0.09 X 10*3/uL (0.00-0.10); Basophils % (A) 0.7 %; Eosinophils # (A) 0.12 X 10*3/uL (0.04-0.35); Eosinophils % (A) 0.9 %; HGB 11.1 g/dL (13.0-17.0); Immature Grans, Automated 0.5 %; Lymphocytes # (A) 1.65 X 10*3/uL (0.90-5.00); Lymphocytes % (A) 12.6 %; MCH 31.3 pg (27.0-32.0); MCHC 32.6 g/dL (32.0-37.0); MCV 95.8 fL (80.0-97.0); Mean Platelet Volume 11.8 fL (9.5-12.2); Monocytes # (A) 0.96 X 10*3/uL (0.20-1.00); Monocytes % (A) 7.3 %; NRBC Per 100 WBC 0 /100 WBCS (0.0-0.0); Neutrophils # (A) 10.22 X 10*3/uL (1.80-7.70); Platelet Count 220 X 10*3/uL (140-440); RBC 3.55 X 10*6/uL (4.40-5.60); RDW 13.7 % (11.5-14.5)
[2022-01-05 09:57] LABS: African American GFR (CKD) 67.9 (60.0-200.0); Anion Gap 12.8 mmol/L (10.00-18.00); BUN/Creat Ratio 12.33 Ratio (12.00-20.00); Blood Urea Nitrogen 15.9 mg/dL (9.0-27.0); Calcium 7.8 mg/dL (8.7-10.3); Carbon Dioxide 14.5 mmol/L (20.0-27.5); Non-African American GFR(CKD) 58.6 (60.0-200.0); Potassium 3.9 mmol/L (3.5-5.5)
[2022-01-05] MEDS: PIPERACILLIN-TAZOBACTAM 3.375 GM in SODIUM CHLORIDE 0.9% 100 ML IVPB SCH ×2 (12:37→19:31)
--- NOTE | 2022-01-05 13:51 | P.PN ---
Subjective Progress Note Date: 01/05/22 CHIEF COMPLAINT: Perforated diverticulitis HISTORY OF PRESENT ILLNESS: The patient is a 61-year-old male with history of chronic tobacco abuse disorder, hypertensive disease who presents for perforated diverticulitis. Abdominal pain has been improving. He had a bowel movement. Reports moderate improvement of his abdominal pain. He reports she will stop smoking. ROS: No reports of nausea and vomiting. No fevers or chills. No new chest pain. No productive sputum PHYSICAL EXAM: VITAL SIGNS: Reviewed CONSTITUTIONAL: Well developed and in no acute distress. EYES: Conjuctivae without sclera icterus. Extraocular movements grossly intact. HEAD, EARS, NOSE, THROAT: Moist buccal mucosa. Head is atraumatic, normocephalic. Hears conversational speech. No nasal drainage. RESPIRATORY: Non-labored respirations and equal bilateral excursions. CARDIOVASCULAR: Palpable 2+ radial pulses. ABDOMEN: No peritonitis. Resolved left lower quadrant tenderness. MUSCULOSKELETAL: No gross deformity of the lower extremities noted. No clubbing. No cyanosis. SKIN: Good skin turgor. Well perfused. NEUROLOGIC: Cranial nerves II through XII grossly intact. No focal or lateralizing signs. PSYCH: Appropriate affect. Alert and oriented to person, place and time. CLINICAL LABS: Reviewed. WBC improved from 21.6 on admission to 13.1, leukocytosis. Creatinine improved from 1.4-1.3. ASSESSMENT: 1. Perforated diverticulitis 2. Hypertensive heart disease with chronic renal insufficiency, stage II 3. Acute tubular necrosis due to dehydration 4. Tobacco abuse disorder PLAN: 1. Lisinopril has been held due to dehydration and to acute tubular necrosis. Continue rehydration. 2. Antibiotics adjusted from Unasyn to Zosyn for improving antibiotic coverage. Patient currently on Flagyl. 3. May start clear liquid diet. We'll advance to low fiber diet for tomorrow. 4. Continue hospitalization for documented infection of perforated sigmoid diverticulitis 5. Tobacco cessation and counseling performed Objective - Vital Signs Vital signs: Vital Signs Temp 98.7 F 01/05/22 07:52 Pulse 80 01/05/22 07:52 Resp 18 01/05/22 07:52 BP 116/51 01/05/22 07:52 Pulse Ox 95 01/05/22 07:52 Intake & Output 01/04/22 01/05/22 01/05/22 18:59 06:59 18:59 Other: Voiding Method Urinal # Voids 4 2 # Bowel Movements 1 - Labs CBC & Chem 7: 01/05/22 03:53 01/05/22 03:53 Labs: Abnormal Lab Results - Last 24 Hours (Table) 01/05/22 01/05/22 Range/Units 03:53 03:53 WBC 13.10 H (4.50-10.00) X 10*3/uL RBC 3.55 L (4.40-5.60) X 10*6/uL Hgb 11.1 L (13.0-17.0) g/dL Hct 34.0 L (39.6-50.0) % Immature Gran # 0.06 H (0.00-0.04) X 10*3/uL Neutrophils # 10.22 H (1.80-7.70) X 10*3/uL Chloride 116 H (96-109) mmol/L Carbon Dioxide 14.5 L (20.0-27.5) mmol/L Est GFR (CKD-EPI)NonAf 58.6 L (60.0-200.0) Calcium 7.8 L (8.7-10.3) mg/dL Microbiology - Last 24 Hours (Table) 01/03/22 02:25 Blood Culture - Preliminary Blood No Growth after 48 hours 01/03/22 02:40 Blood Culture - Preliminary Blood No Growth after 48 hours
--- NOTE | 2022-01-05 18:48 | P.PN ---
Subjective Progress Note Date: 01/05/22 (delayed charting seen at 0855) Principal diagnosis: abdominal pain Patient is a 61-year-old male with hypertension, hyperlipidemia, peripheral vascular disease with stenting, BPH, diverticulosis, and nicotine dependence who presented to the emergency department with abdominal pain. Found to have diverticulitis with microperforation. He was started on IV antibiotics with Flagyl and Unasyn and admitted under Gen. surgery team and we have been consulted for continued medical management throughout hospitalization. Patient seen and fully evaluated at bedside. He complains of scalp pain on the right side of his scalp. He Was several months ago and seen by his primary felt it was related to dry skin. He denies any internal headache no lightheadedness, dizziness, blurry vision, nausea. He states his abdominal pain is much better. He is not having bowel movements. He is hoping for an increase in diet today. General: non toxic, no distress, appears at stated age Derm: warm, dry, dry and right scalp without erythema, crepitus, scale Head: atraumatic, normocephalic, symmetric Eyes: EOMI, no lid lag, anicteric sclera Mouth: no lip lesion, mucus membranes moist Cardiovascular: S1S2 reg, no murmur, positive posterior tibial pulse bilateral, Lungs: CTA bilateral, no rhonchi, no rales , no accessory muscle use Abdominal: soft, nontender to palpation, no guarding, no appreciable organomegaly Ext: no gross muscle atrophy, no edema, no contractures Neuro: CN II-XI grossly intact, no focal neuro deficits Psych: Alert, oriented, appropriate affect Assessment/Plan: Acute sigmoid diverticulitis with perforation Intractable Abdominal pain secondary to above -Diet increased to clears by surgery -Hold Plavix and aspirin until further cleared by general surgery team to resume -Maintain IV fluid hydration -Continue PPI with Protonix 40 mg IVP daily -Currently on IV Flagyl and Zosyn per general surgery. -Pain control, antiemetics Hyperchloremic metabolic acidosis -Stop normal saline -Start lactated Ringer's Xeroderma of scalp - moisturizing shampoo after discharge. Hypertension -follow BP - amlodipine - lisinopril on hold per surgery Hyperlipidemia -Statin Peripheral vascular disease with previous stenting - outpatient follow-up BPH -Flomax. Nicotine dependence - tobacco cessation -Nicotine patch Thank you for allowing us to participate in the care of this pleasant patient. Do not hesitate to contact us with questions. Someone can be reached from the [facility] hospitalist group all hours of the day at [phone] or via perfect serve. Objective - Vital Signs Vital signs: Vital Signs Temp 98.5 F 01/05/22 14:00 Pulse 79 01/05/22 14:00 Resp 18 01/05/22 14:00 BP 134/71 01/05/22 14:00 Pulse Ox 93 L 01/05/22 14:00 Intake & Output 01/04/22 01/05/22 01/05/22 18:59 06:59 18:59 Other: Voiding Method Urinal # Voids 4 2 4 # Bowel Movements 1 3 - Labs CBC & Chem 7: 01/05/22 03:53 01/05/22 03:53 Labs: Abnormal Lab Results - Last 24 Hours (Table) 01/05/22 01/05/22 Range/Units 03:53 03:53 WBC 13.10 H (4.50-10.00) X 10*3/uL RBC 3.55 L (4.40-5.60) X 10*6/uL Hgb 11.1 L (13.0-17.0) g/dL Hct 34.0 L (39.6-50.0) % Immature Gran # 0.06 H (0.00-0.04) X 10*3/uL Neutrophils # 10.22 H (1.80-7.70) X 10*3/uL Chloride 116 H (96-109) mmol/L Carbon Dioxide 14.5 L (20.0-27.5) mmol/L Est GFR (CKD-EPI)NonAf 58.6 L (60.0-200.0) Calcium 7.8 L (8.7-10.3) mg/dL Microbiology - Last 24 Hours (Table) 01/03/22 02:25 Blood Culture - Preliminary Blood No Growth after 48 hours 01/03/22 02:40 Blood Culture - Preliminary Blood No Growth after 48 hours
[2022-01-05] MEDS: LACTATED RINGERS 1,000 ML IV SCH (19:40)
[2022-01-05] MEDS: TAMSULOSIN 0.4 MG CAP.ER.24H PO SCH (20:55)
[2022-01-05] MEDS: amLODIPine 5 MG TAB PO SCH (20:55)
[2022-01-06] MEDS: PIPERACILLIN-TAZOBACTAM 3.375 GM in SODIUM CHLORIDE 0.9% 100 ML IVPB SCH ×3 (03:57→19:13)
[2022-01-06] MEDS: ACETAMINOPHEN TAB 500 MG TAB PO SCH ×4 (05:17→23:12)
[2022-01-06] MEDS: metroNIDAZOLE-NS PMX 500 MG in SALINE 1 100ML.BAG IVPB SCH ×4 (05:18→23:11)
[2022-01-06] MEDS: NICOTINE 14MG/24HR PATCH TRANSDERM SCH (07:53)
[2022-01-06] MEDS: GABAPENTIN 300 MG CAP PO SCH ×3 (07:55→20:49)
[2022-01-06] MEDS: PANTOPRAZOLE 40 MG TABLET PO SCH (07:55)
[2022-01-06] MEDS: ENOXAPARIN 40 MG/0.4 ML SYRINGE SQ SCH (07:55)
[2022-01-06 08:38] LABS: Basophils # (A) 0.1 k/uL (0-0.2); Basophils % (A) 1 %; Eosinophils # (A) 0.2 k/uL (0-0.7); Eosinophils % (A) 1 %; HCT 42.7 % (39.0-53.0); HGB 13.2 gm/dL (13.0-17.5); Hypochromasia Slight; Lymphocytes # (A) 1.2 k/uL (1.0-4.8); Lymphocytes % (A) 7 %; MCH 31.3 pg (25.0-35.0); MCHC 30.9 g/dL (31.0-37.0); Mean Platelet Volume 8.2; Monocytes # (A) 0.9 k/uL (0-1.0); Monocytes % (A) 5 %; Neutrophils # (A) 13.7 k/uL (1.3-7.7); Neutrophils % (A) 84 %; Platelet Count 264 k/uL (150-450); RBC 4.22 m/uL (4.30-5.90); RDW 13.3 % (11.5-15.5); WBC 16.3 k/uL (3.8-10.6)
[2022-01-06 08:39] LABS: MCV 101.1 fL (80.0-100.0)
[2022-01-06 08:49] LABS: African American GFR (CKD) 72 (>60 ml/min/1.73 sqM); Anion Gap 11 mmol/L; Blood Urea Nitrogen 12 mg/dL (9-20); Calcium 8.4 mg/dL (8.4-10.2); Carbon Dioxide 13 mmol/L (22-30); Chloride 117 mmol/L (98-107); Glucose 93 mg/dL (74-99); Non-African American GFR(CKD) 62 (>60 ml/min/1.73 sqM); Potassium 3.9 mmol/L (3.5-5.1); Sodium 141 mmol/L (137-145)
--- NOTE | 2022-01-06 09:52 | XR ---
EXAMINATION TYPE: XR KUB DATE OF EXAM: 01/06/2022 9:31 AM CLINICAL HISTORY: Abdominal pain and perforated diverticulitis. TECHNIQUE: Two Upright KUB images of the abdomen are obtained. COMPARISON: CT abdomen and pelvis 3 days ago FINDINGS: Gas is seen in nondistended stomach. Scattered gas is seen in non-distended small bowel loo ps. Gas and fecal material is seen in non-distended colon. There is no visceromegaly, pneumoperitoneu m, or abnormal calcification appreciated. New left basilar opacity. Osseous structures are intact. IMPRESSION: Overall nonobstructive bowel gas pattern. New Left basilar opacity consistent with atelec tasis and/or developing acute infiltrate. Correlate clinically.
[2022-01-06] MEDS: HYDROmorphone 1 MG/ML 1 ML SYRINGE IVP PRN ×2 (12:45→16:26)
[2022-01-06] MEDS ORDERED: IOPAMIDOL CONTRAST (ORAL USE) VIAL PO PRN (15:34)
--- NOTE | 2022-01-06 15:39 | P.PN ---
Subjective Progress Note Date: 01/06/22 CHIEF COMPLAINT: Perforated diverticulitis HISTORY OF PRESENT ILLNESS: The patient is a 61 year old male admitted for perforated diverticulitis. Since admission, his abdominal pain had improved until yesterday with increased diet. He has passed flatus. He is having bowel movements. He reports no increased abdominal pain with his bowel movements. No new fevers. REVIEW OF ORGAN SYSTEMS: No fevers or chills. No nausea or vomiting. No chest pain. No shortness of breath. PHYSICAL EXAM: VITALS: Reviewed CONSTITUTIONAL: Well developed and in no acute distress. EYES: Conjuctivae without sclera icterus. Extraocular movements grossly intact. HEAD, EARS, NOSE, THROAT: Moist buccal mucosa. Head is atraumatic, normocephalic. Hears conversational speech. No nasal drainage. Poor dentition. RESPIRATORY: Non-labored respirations and equal bilateral excursions. No gross wheezes. CARDIOVASCULAR: Palpable 2+ radial pulses. ABDOMEN: No peritonitis. Mild left lower quadrant pain. MUSCULOSKELETAL: No clubbing cyanosis or edema. SKIN: Warm and well perfused with good skin turgor. NEUROLOGIC: Cranial nerves II through XII grossly intact. No focal or lateralizing signs. PSYCH: Appropriate affect. Alert and oriented to person, place and time. Displays appropriate insight. CLINCAL LABS: Reviewed. WBC 21.6 and elevated on admission now up from 13.6- 16.1. Creatinine down to 1.39 on admission to 1.24. ASSESSMENT: 1. Perforated sigmoid diverticulitis 2. Leukocytosis 3. History of colon polyp 4. Tobacco abuse disorder 5. Hypertensive heart disease 6. Peripheral vascular occlusive disease 7. Elevated creatinine due to dehydration PLAN: 1. Diet decreased from liquids to nothing by mouth except ice chips and popsicles. 2. Will reorder CT abdomen and pelvis due to change in clinical course with increased abdominal pain. 3. Consultation to infectious disease for possible prolonged IV antibiotics. May need PICC line. 4. Care plan thoroughly discussed with patient. Objective - Vital Signs Vital signs: Vital Signs Temp 98.2 F 01/06/22 14:00 Pulse 76 01/06/22 14:00 Resp 17 01/06/22 14:00 BP 114/54 01/06/22 14:00 Pulse Ox 95 01/06/22 14:00 Intake & Output 01/05/22 01/06/2201/06/22 18:59 06:59 18:59 Other: Voiding Method Toilet # Voids 4 3 4 # Bowel Movements 3 - Labs CBC & Chem 7: 01/06/22 08:19 01/06/22 08:19 Labs: Abnormal Lab Results - Last 24 Hours (Table) 01/06/22 01/06/22 Range/Units 08:19 08:19 WBC 16.3 H (3.8-10.6) k/uL RBC 4.22 L (4.30-5.90) m/uL MCV 101.1 H D (80.0-100.0) fL MCHC 30.9 L (31.0-37.0) g/dL Neutrophils # 13.7 H (1.3-7.7) k/uL Chloride 117 H (98-107) mmol/L Carbon Dioxide 13 L (22-30) mmol/L Microbiology - Last 24 Hours (Table) 01/03/22 02:40 Blood Culture - Preliminary Blood No Growth after 72 hours 01/03/22 02:25 Blood Culture - Preliminary Blood No Growth after 72 hours
[2022-01-06] MEDS: LACTATED RINGERS 1,000 ML IV SCH (15:49)
--- NOTE | 2022-01-06 17:28 | P.PN ---
Subjective Progress Note Date: 01/06/22 (delayed charting seen at 0945) Principal diagnosis: abdominal pain Patient is a 61-year-old male with hypertension, hyperlipidemia, peripheral vascular disease with stenting, BPH, diverticulosis, and nicotine dependence who presented to the emergency department with abdominal pain. Found to have diverticulitis with microperforation. He was started on IV antibiotics with Flagyl and Unasyn and admitted under Gen. surgery team and we have been consulted for continued medical management throughout hospitalization. Patient seen and fully evaluated at bedside. He states that after he tried his soft diet yesterday evening he immediately had an increase in his abdominal pain. He also felt more nauseated. He is uncomfortable last night and could not sleep. He did have a large formed bowel movement and then had some improvement in his pain. He is very concerned because he had a family member of a perforation. He overall does not feel good as yesterday. General: non toxic, no distress, appears at stated age Derm: warm, dry, dry and right scalp without erythema, crepitus, scale Head: atraumatic, normocephalic, symmetric Eyes: EOMI, no lid lag, anicteric sclera Mouth: no lip lesion, mucus membranes moist Cardiovascular: S1S2 reg, no murmur, positive posterior tibial pulse bilateral, Lungs: CTA bilateral, no rhonchi, no rales , no accessory muscle use Abdominal: soft, + tender to palpation left upper and lower quadrant, no guarding, no appreciable organomegaly Ext: no gross muscle atrophy, no edema, no contractures Neuro: CN II-XI grossly intact, no focal neuro deficits Psych: Alert, oriented, appropriate affect Assessment/Plan: Acute sigmoid diverticulitis with perforation Intractable Abdominal pain secondary to above -General surgery is managing diverticulitis. Plan is for repeat CT abdomen and pelvis tomorrow possible need for PICC line. They also decreased him back to ice chips. -Hold Plavix and aspirin until further cleared by general surgery team to resume -Maintain IV fluid hydration -Continue PPI with Protonix 40 mg IVP daily -Currently on IV Flagyl and Zosyn per general surgery. -Pain control, antiemetics Hyperchloremic metabolic acidosis -Continue lactated Ringer's - repeat labs in AM Xeroderma of scalp - moisturizing shampoo after discharge. Hypertension -follow BP - amlodipine - lisinopril on hold per surgery Hyperlipidemia -Statin Peripheral vascular disease with previous stenting - outpatient follow-up BPH -Flomax. Nicotine dependence - tobacco cessation -Nicotine patch Thank you for allowing us to participate in the care of this pleasant patient. Do not hesitate to contact us with questions. Someone can be reached from the [facility] hospitalist group all hours of the day at [phone] or via perfect serve. Active Medications Generic Name Dose Route Start Last Admin Trade Name Freq PRN Reason Stop Dose Admin Acetaminophen 1,000 mg 01/04/22 14:30 01/06/22 12:37 Acetaminophen Tab 500 Mg Tab PO 1,000 mg Q6HR SARAH Administration Amlodipine Besylate 5 mg 01/03/22 21:00 01/05/22 20:55 Amlodipine 5 Mg Tab PO 5 mg HS SARAH Administration Enoxaparin Sodium 40 mg 01/03/22 13:45 01/06/22 07:55 Enoxaparin 40 Mg/0.4 Ml Syringe SQ 40 mg DAILY SARAH Administration Gabapentin 300 mg 01/04/22 16:00 01/06/22 16:20 Gabapentin 300 Mg Cap PO 300 mg TID SARAH Administration Hydromorphone HCl 1 mg 01/03/22 09:55 01/06/22 16:26 Hydromorphone 1 Mg/Ml 1 Ml Syringe IVP 1 mg Q3HR PRN Administration Pain Metronidazole 500 mg/ IV 100 mls @ 100 mls/hr 01/03/22 06:45 01/06/22 12:38 Solution IVPB 100 mls/hr Q6HR SARAH Administration Protocol Piperacillin Sod/Tazobactam 100 mls @ 25 mls/hr 01/05/22 12:00 01/06/22 12:38 Sod 3.375 gm/ Sodium Chloride IVPB 25 mls/hr Q8H SARAH Administration Protocol Lactated Ringer's 1,000 mls @ 50 mls/hr 01/05/22 18:45 01/06/22 15:49 Lactated Ringers IV 50 mls/hr .Q20H SARAH Administration Iopamidol 30 ml 01/06/22 15:34 01/06/22 16:43 Iopamidol Contrast (Oral Use) Vial PO 01/07/22 15:34 30 ml Q60M PRN Administration CT Scan Naloxone HCl 0.2 mg 01/03/22 01:44 Naloxone 0.4 Mg/Ml 1 Ml Vial IV Q2M PRN Opioid Reversal Nicotine 1 patch 01/03/22 09:00 01/06/22 07:53 Nicotine 14mg/24hr Patch TRANSDERM Not Given DAILY SARAH Ondansetron HCl 4 mg 01/03/22 01:44 01/06/22 16:27 Ondansetron 4 Mg/2 Ml Vial IVP 4 mg Q8HR PRN Administration Nausea And Vomiting Pantoprazole Sodium 40 mg 01/06/22 07:30 01/06/22 07:55 Pantoprazole 40 Mg Tablet PO 40 mg [id number] SARAH Administration Tamsulosin HCl 0.4 mg 01/03/22 21:00 01/05/22 20:55 Tamsulosin 0.4 Mg Cap.Er.24h PO 0.4 mg HS SARAH Administration Objective - Vital Signs Vital signs: Vital Signs Temp 98.2 F 01/06/22 14:00 Pulse 76 01/06/22 14:00 Resp 17 01/06/22 14:00 BP 114/54 01/06/22 14:00 Pulse Ox 95 01/06/22 14:00 Intake & Output 01/05/22 01/06/22 01/06/22 18:59 06:59 18:59 Other: Voiding Method Toilet # Voids 4 3 4 # Bowel Movements 3 - Labs CBC & Chem 7: 01/06/22 08:19 01/06/22 08:19 Labs: Abnormal Lab Results - Last 24 Hours (Table) 01/06/22 01/06/22 Range/Units 08:19 08:19 WBC 16.3 H (3.8-10.6) k/uL RBC 4.22 L (4.30-5.90) m/uL MCV 101.1 H D (80.0-100.0) fL MCHC 30.9 L (31.0-37.0) g/dL Neutrophils # 13.7 H (1.3-7.7) k/uL Chloride 117 H (98-107) mmol/L Carbon Dioxide 13 L (22-30) mmol/L Microbiology - Last 24 Hours (Table) 01/03/22 02:40 Blood Culture - Preliminary Blood No Growth after 72 hours 01/03/22 02:25 Blood Culture - Preliminary Blood No Growth after 72 hours
--- NOTE | 2022-01-06 17:38 | CT ---
EXAMINATION TYPE: CT abdomen pelvis w con CT DLP: 1236.4 mGycm, Automated exposure control for dose reduction was used. DATE OF EXAM: 01/06/2022 5:30 PM COMPARISON: CT abdomen pelvis most recent from 01/03/2022 CLINICAL INDICATION:Male, 61 years old with history of Perforated diverticulitis; TECHNIQUE: Standard CT of the abdomen and pelvis following the administration of 100 cc of Isovue 3 00 IV contrast material. Coronal and sagittal reformats were performed. FINDINGS: LOWER CHEST: Trace bilateral pleural effusions. ABDOMEN LIVER: Unremarkable GALLBLADDER AND BILE DUCTS: Unremarkable. PANCREAS: Unremarkable. SPLEEN: Unremarkable. ADRENAL GLANDS: Unremarkable. KIDNEYS AND URETERS: No evidence of hydronephrosis or renal calculus. The ureters are unremarkable. PELVIS BLADDER: Unremarkable REPRODUCTIVE: Unremarkable. ABDOMEN & PELVIS STOMACH AND BOWEL: Fat stranding changes around the sigmoid colon in areas of multiple colonic divert icula spectral submucosal abscess on the left side of the sigmoid colon measuring 21 x 12 x 19 mm. PERITONEUM: Small amount of free fluid is seen within the abdomen. There remains pneumoperitoneum herve r loop of sigmoid colon. VASCULATURE: Mild atherosclerotic calcifications are present throughout the abdominal aorta and its b ranches. MUSCULOSKELETAL: No acute osseous abnormalities. LYMPH NODES: No gross evidence for lymphadenopathy. SOFT TISSUE/ABDOMINAL WALL: Unremarkable IMPRESSION: Perforated diverticulitis with small pocket of pneumoperitoneum and scattered free fluid throughout t he abdomen. No definitive organizing fluid collection to suggest abscess. There is suspected submucos al abscess in the left side of the sigmoid colon wall similar prior.
[2022-01-06] MEDS: TAMSULOSIN 0.4 MG CAP.ER.24H PO SCH (20:49)
[2022-01-06] MEDS: amLODIPine 5 MG TAB PO SCH (20:49)
--- NOTE | 2022-01-06 23:51 | P.CONS ---
History of Present Illness - Reason for Consult Consult date: 01/06/22 Antibiotic management/perforated diverticulitis Requesting physician: Sandra Turcios - Chief Complaint Abdominal pain few days - History of Present Illness Patient is 61-year-old male presenting to the hospital on 01/02/2022 with abdominal pain that apparently was going on for few days before presentation to the hospital patient described normal pain to be more of a sharp in nature intensity 6-7 out of 10 no radiation with some nausea but no vomiting patient on presentation to the hospital did have a CT of abdominal pelvis which showed sigmoid diverticulitis with perforation and extraluminal air adjacent to the anterior right side of the sigmoid colon patient on presentation to the hospital was running a low-grade fever of 99.6 no high-grade fever has been recorded patient did have a white count of 21.6 which was trending down however is up to 16.3 today and the patient was also noticed to have some rubor rigidity for which repeat CT abdominal pelvis has been ordered patient is currently being treated with the Zosyn and Flagyl, infectious disease was consulted for further management of antibiotic as mentioned earlier the patient is afebrile patient abdominal pain has decreased intensity denies any nausea no vomiting no diarrhea no urinary symptoms no chest pain shortness of breath or cough Review of Systems Positive point has been mentioned in the HPI rest of the systems are negative Past Medical History Past Medical History: Hyperlipidemia, Hypertension, Osteoarthritis (OA) Additional Past Medical History / Comment(s): PAD History of Any Multi-Drug Resistant Organisms: None Reported Additional Past Surgical History / Comment(s): PTBA WITH STENT-2016, COLONOSCOPY Past Anesthesia/Blood Transfusion Reactions: No Reported Reaction Past Psychological History: No Psychological Hx Reported Smoking Status: Current every day smoker Past Alcohol Use History: Rare Additional Past Alcohol Use History / Comment(s): STARTED SMOKING AT AGE 15 SMOKES 1 - 1 1/2 PPD Past Drug Use History: Marijuana - Past Family History Father Family Medical History: Cancer Medications and Allergies Home Medications Medication Instructions Recorded Confirmed Type Aspirin EC [Ecotrin Low Dose] 81 mg PO HS 02/09/20 01/03/22 History Clopidogrel [Plavix] 75 mg PO HS 02/09/20 01/03/22 History Tamsulosin [Flomax] 0.4 mg PO HS 02/09/20 01/03/22 History lisinopriL [Zestril] 20 mg PO HS 02/09/20 01/03/22 History Atorvastatin [Lipitor] 40 mg PO HS 01/03/22 01/03/22 History Cholecalciferol [Vitamin D3 (25 25 mcg PO HS 01/03/22 01/03/22 History Mcg = 1000 Iu)] Nicotine 14Mg/24Hr Patch [Habitrol 1 patch TRANSDERM DAILY 01/03/22 01/03/22 Hi story 14Mg/24Hr Patch] Tadalafil [Cialis] 10 mg PO DAILY PRN 01/03/22 01/03/22 History Testosterone [Androgel 1% Gel Pump] 2 applic TOPICAL DAILY 01/03/22 01/03/22 History amLODIPine [Norvasc] 5 mg PO HS 01/03/22 01/03/22 History Allergies Allergy/AdvReac Type Severity Reaction Status Date / Time No Known Allergies Allergy Verified 01/03/22 06:43 Physical Exam Vitals: Vital Signs Temp Pulse Resp BP Pulse Ox 01/06/22 14:00 98.2 F 76 17 114/54 95 01/06/22 08:00 98.8 F 82 18 112/62 92 L 01/06/22 00:59 98.7 F 79 16 122/68 93 L 01/05/22 20:32 98.5 F 75 16 123/59 93 L Intake and Output 01/06/22 01/06/22 01/06/22 06:59 14:59 22:59 Other: Voiding Method Toilet # Voids 3 4 GENERAL DESCRIPTION: Middle-aged male lying in bed, no distress. No tachypnea or accessory muscle of respiration use. HEENT: Shows Pallor , no scleral icterus. Oral mucous membrane is dry. No pharyngeal erythema or thrush NECK: Trachea central, no thyromegaly. LUNGS: Unlabored breathing. Clear to auscultation anteriorly. No wheeze or crackle. HEART: S1, S2, regular rate and rhythm. No loud murmur ABDOMEN: Soft, mild distention and lower quadrant tenderness EXTREMITIES: No edema of feet. SKIN: No rash, no masses palpable. NEUROLOGICAL: The patient is awake, alert, oriented x3, mood and affect normal. Results CBC & Chem 7: 01/06/22 08:19 01/06/22 08:19 Labs: Abnormal Lab Results - Last 24 Hours (Table) 01/06/22 01/06/22 Range/Units 08:19 08:19 WBC 16.3 H (3.8-10.6) k/uL RBC 4.22 L (4.30-5.90) m/uL MCV 101.1 H D (80.0-100.0) fL MCHC 30.9 L (31.0-37.0) g/dL Neutrophils # 13.7 H (1.3-7.7) k/uL Chloride 117 H (98-107) mmol/L Carbon Dioxide 13 L (22-30) mmol/L Microbiology - Last 24 Hours (Table) 01/03/22 02:40 Blood Culture - Preliminary Blood No Growth after 72 hours 01/03/22 02:25 Blood Culture - Preliminary Blood No Growth after 72 hours Assessment and Plan (1) Diverticulitis of colon with perforation Current Visit: Yes Status: Acute Code(s): K57.20 - DVTRCLI OF LG INT W PERFORATION AND ABSCESS W/O BLEEDING SNOMED Code(s): 21968207 Plan: 1patient with a leukocytosis in this patient presented to hospital with abdominal pain and has been noticed to have perforated sigmoid diverticulitis with a small abscess now with evidence of worsening of the white count and rebound tenderness concern for possible worsening of the abscess as no other obvious focus of infection. 2we will wait for the repeat CT abdominal pelvis daily to finalize. 3continue with the Zosyn however discontinue Flagyl and add Diflucan. We will follow on clinical condition and cultures to further adjust medication if needed Thank you for this consultation will follow this patient along with you Time with Patient: Greater than 30
[2022-01-07] MEDS: PIPERACILLIN-TAZOBACTAM 3.375 GM in SODIUM CHLORIDE 0.9% 100 ML IVPB SCH ×3 (05:50→20:59)
[2022-01-07] MEDS: ACETAMINOPHEN TAB 500 MG TAB PO SCH ×4 (06:02→23:58)
[2022-01-07 06:33] LABS: HCT 38.9 % (39.0-53.0); HGB 12.5 gm/dL (13.0-17.5); MCH 30.9 pg (25.0-35.0); MCHC 32.1 g/dL (31.0-37.0); MCV 96.3 fL (80.0-100.0); Mean Platelet Volume 8.6; Platelet Count 273 k/uL (150-450); RBC 4.04 m/uL (4.30-5.90); RDW 13.5 % (11.5-15.5); WBC 14.1 k/uL (3.8-10.6)
[2022-01-07 06:57] LABS: ALT 20 U/L (4-49); AST 43 U/L (17-59); African American GFR (CKD) 82 (>60 ml/min/1.73 sqM); Albumin 2.8 g/dL (3.5-5.0); Albumin/Globulin Ratio 1.1; Alkaline Phosphatase 106 U/L (38-126); Anion Gap 10 mmol/L; Blood Urea Nitrogen 10 mg/dL (9-20); Calcium 8.1 mg/dL (8.4-10.2); Carbon Dioxide 18 mmol/L (22-30); Chloride 111 mmol/L (98-107); Globulin 2.5 g/dL; Glucose 93 mg/dL (74-99); Magnesium 1.6 mg/dL (1.6-2.3); Non-African American GFR(CKD) 71 (>60 ml/min/1.73 sqM); Phosphorus 2.4 mg/dL (2.5-4.5); Sodium 139 mmol/L (137-145); Total Bilirubin 0.6 mg/dL (0.2-1.3); Total Protein 5.3 g/dL (6.3-8.2)
[2022-01-07] MEDS: HYDROmorphone 1 MG/ML 1 ML SYRINGE IVP PRN ×2 (07:40→14:43)
[2022-01-07] MEDS: NICOTINE 14MG/24HR PATCH TRANSDERM SCH (08:11)
[2022-01-07] MEDS: FLUCONAZOLE 100 MG TAB PO SCH (08:11)
[2022-01-07] MEDS: PANTOPRAZOLE 40 MG TABLET PO SCH (08:11)
[2022-01-07] MEDS: ENOXAPARIN 40 MG/0.4 ML SYRINGE SQ SCH (08:11)
[2022-01-07] MEDS: GABAPENTIN 300 MG CAP PO SCH ×3 (08:11→21:00)
[2022-01-07] MEDS: LACTATED RINGERS 1,000 ML IV SCH (10:24)
--- NOTE | 2022-01-07 13:48 | P.PN ---
Subjective Progress Note Date: 01/07/22 (delayed charting seen at 0930) Principal diagnosis: abdominal pain Patient is a 61-year-old male with hypertension, hyperlipidemia, peripheral vascular disease with stenting, BPH, diverticulosis, and nicotine dependence who presented to the emergency department with abdominal pain. Found to have diverticulitis with microperforation. He was started on IV antibiotics with Flagyl and Unasyn and admitted under Gen. surgery team and we have been consulted for continued medical management throughout hospitalization. Patient seen and fully evaluated at bedside. We had a long discussion about why IV antibiotics may be indicated at home. Initially was resistant. He is going home with a PICC line in. However after explaining how this works he is okay wi th that. He states he is feeling hungry today, no nausea, he is not having any belly pain currently. However he did require Dilaudid and have some increased pain last night. General: non toxic, no distress, appears at stated age Derm: warm, dry Head: atraumatic, normocephalic, symmetric Eyes: EOMI, no lid lag, anicteric sclera Mouth: no lip lesion, mucus membranes moist Cardiovascular: S1S2 reg, no murmur, positive posterior tibial pulse bilateral, Lungs: CTA bilateral, no rhonchi, no rales , no accessory muscle use Abdominal: soft, + tender to palpation left lower quadrant, no guarding, no appreciable organomegaly Ext: no gross muscle atrophy, no edema, no contractures Neuro: CN II-XI grossly intact, no focal neuro deficits Psych: Alert, oriented, appropriate affect Assessment/Plan: Acute sigmoid diverticulitis with perforation Intractable Abdominal pain secondary to above -General surgery is managing diverticulitis. Repeat CT with submucosal abscess -Hold Plavix and aspirin until further cleared by general surgery team to resume -Maintain IV fluid hydration -Continue PPI with Protonix 40 mg IVP daily -ID recs appreciated: zosyn, diflucan, likely will need IV ABx -Pain control, antiemetics Hyperchloremic metabolic acidosis, improving -Continue lactated Ringer's - repeat labs in AM Xeroderma of scalp - moisturizing shampoo after discharge. Hypertension -follow BP - amlodipine - lisinopril on hold per surgery Hyperlipidemia -Statin Peripheral vascular disease with previous stenting - outpatient follow-up BPH -Flomax. Nicotine dependence - tobacco cessation -Nicotine patch Thank you for allowing us to participate in the care of this pleasant patient. Do not hesitate to contact us with questions. Someone can be reached from the [facility] hospitalist group all hours of the day at [phone] or via perfect serve. Active Medications Generic Name Dose Route Start Last Admin Trade Name Freq PRN Reason Stop Dose Admin Acetaminophen 1,000 mg 01/04/22 14:30 01/07/22 12:27 Acetaminophen Tab 500 Mg Tab PO 1,000 mg Q6HR SARAH Administration Amlodipine Besylate 5 mg 01/03/22 21:00 01/06/22 20:49 Amlodipine 5 Mg Tab PO 5 mg HS SARAH Administration Enoxaparin Sodium 40 mg 01/03/22 13:45 01/07/22 08:11 Enoxaparin 40 Mg/0.4 Ml Syringe SQ 40 mg DAILY SARAH Administration Fluconazole 200 mg 01/07/22 09:00 01/07/22 08:11 Fluconazole 100 Mg Tab PO 200 mg DAILY SARAH Administration Protocol Gabapentin 300 mg 01/04/22 16:00 01/07/22 08:11 Gabapentin 300 Mg Cap PO 300 mg TID SARAH Administration Hydromorphone HCl 1 mg 01/03/22 09:55 01/07/22 07:40 Hydromorphone 1 Mg/Ml 1 Ml Syringe IVP 1 mg Q3HR PRN Administration Pain Piperacillin Sod/Tazobactam 100 mls @ 25 mls/hr 01/05/22 12:00 01/07/22 12:27 Sod 3.375 gm/ Sodium Chloride IVPB 25 mls/hr Q8H SARAH Administration Protocol Lactated Ringer's 1,000 mls @ 50 mls/hr 01/05/22 18:45 01/07/22 10:24 Lactated Ringers IV 50 mls/hr .Q20H SARAH Administration Iopamidol 30 ml 01/06/22 15:34 01/06/22 16:43 Iopamidol Contrast (Oral Use) Vial PO 01/07/22 15:34 30 ml Q60M PRN Administration CT Scan Naloxone HCl 0.2 mg 01/03/22 01:44 Naloxone 0.4 Mg/Ml 1 Ml Vial IV Q2M PRN Opioid Reversal Nicotine 1 patch 01/03/22 09:00 01/07/22 08:11 Nicotine 14mg/24hr Patch TRANSDERM 1 patch DAILY SARAH Administration Ondansetron HCl 4 mg 01/03/22 01:44 01/06/22 16:27 Ondansetron 4 Mg/2 Ml Vial IVP 4 mg Q8HR PRN Administration Nausea And Vomiting Pantoprazole Sodium 40 mg 01/06/22 07:30 01/07/22 08:11 Pantoprazole 40 Mg Tablet PO 40 mg AC-BRKFST SARAH Administration Tamsulosin HCl 0.4 mg 01/03/22 21:00 01/06/22 20:49 Tamsulosin 0.4 Mg Cap.Er.24h PO 0.4 mg HS SARAH Administration Objective - Vital Signs Vital signs: Vital Signs Temp 98.5 F 01/07/22 08:00 Pulse 91 01/07/22 08:00 Resp 18 01/07/22 08:00 BP 141/51 01/07/22 08:00 Pulse Ox 92 L 01/07/22 08:00 FiO2 Intake & Output 01/06/22 01/07/22 01/07/22 18:59 06:59 18:59 Other: Voiding Method Toilet # Voids 4 2 - Labs CBC & Chem 7: 01/07/22 05:51 01/07/22 05:51 Labs: Abnormal Lab Results - Last 24 Hours (Table) 01/07/22 01/07/22 Range/Units 05:51 05:51 WBC 14.1 H (3.8-10.6) k/uL RBC 4.04 L (4.30-5.90) m/uL Hgb 12.5 L (13.0-17.5) gm/dL Hct 38.9 L (39.0-53.0) % Chloride 111 H (98-107) mmol/L Carbon Dioxide 18 L (22-30) mmol/L Calcium 8.1 L (8.4-10.2) mg/dL Phosphorus 2.4 L (2.5-4.5) mg/dL Total Protein 5.3 L (6.3-8.2) g/dL Albumin 2.8 L (3.5-5.0) g/dL Microbiology - Last 24 Hours (Table) 01/03/22 02:40 Blood Culture - Preliminary Blood No Growth after 96 hours 01/03/22 02:25 Blood Culture - Preliminary Blood No Growth after 96 hours
--- NOTE | 2022-01-07 16:12 | P.PN ---
Subjective Progress Note Date: 01/07/22 CHIEF COMPLAINT: Perforated diverticulitis HISTORY OF PRESENT ILLNESS: Patient is reports some decrease in his abdominal pain. He is having bowel movements. Denies any nausea or vomiting. He reports that the pain is more lower mid abdomen. He is afebrile. Computed tomography scan abdomen and pelvis shows perforated diverticulitis with small pocket of pneumoperitoneum and scattered free fluid throughout the abdomen. No definitive organizing fluid collection to suggest abscess. There is suspected submucosal abscess on the left side of the sigmoid colon wall similar to prior. WBC is down from 16.3-14.1 hemoglobin is 12.5 sodium 139 potassium is 4 creatinine 1.11. Patient seen by infectious disease PHYSICAL EXAM: VITAL SIGNS: Reviewed GENERAL: Well-developed in no acute distress. HEENT: No sclera icterus. Extraocular movements grossly intact. Moist buccal mucosa. Head is atraumatic, normocephalic. Hears conversational speech. No nasal drainage. NECK: Supple without lymphadenopathy. CHEST: Non-labored respirations and equal bilateral excursions. CARDIOVASCULAR: Palpable 2+ radial pulses. ABDOMEN: Soft. Nondistended. No signs of peritonitis. Tenderness with palpation of the left lower quadrant and lower mid abdomen MUSCULOSKELETAL: No clubbing or cyanosis. NEUROLOGIC: No focal or lateralizing signs. Cranial nerves II through XII grossly intact. PSYCH: Appropriate affect. Alert and oriented to person, place and time. SKIN: Well perfused. Good skin turgor. ASSESSMENT: 1. Acute sigmoid diverticulitis with perforation 2. Leukocytosis 3. Nicotine dependence 4. History of peripheral arterial disease with stent and on Plavix at home 5. Hypertension 6. Hyperlipidemia 7. Atelectasis 8. Elevated creatinine due to dehydration has improved PLAN: -Continue conservative management -Continue antibiotics per infectious disease recommendations -Keep patient nothing by mouth except for ice chips and popsicles -Ordered PICC line placement to initiate TPN -Consult dietitian to start TPN -Add Toradol scheduled to help with pain control -Discussed smoking cessation -Continue to hold Plavix for possible surgical intervention -DVT prophylaxis Lovenox Physician Lining Feller note has been reviewed by physician. Signing provider agrees with the documented findings, assessment, and plan of care. CHIEF COMPLAINT: Perforated diverticulitis HISTORY OF PRESENT ILLNESS: The patient is a 61 year old male admitted for perforated diverticulitis. Yesterday, patient had increased abdominal pain and CT of the valve was was ordered. Today, abdominal pain has improved from yesterday. Reports his discomfort is primarily suprapubic. Otherwise he is much improved since admission. REVIEW OF ORGAN SYSTEMS: No fevers or chills. No nausea or vomiting. No chest pain. No shortness of breath. PHYSICAL EXAM: VITALS: Reviewed CONSTITUTIONAL: Well developed and in no acute distress. EYES: Conjuctivae without sclera icterus. Extraocular movements grossly intact. HEAD, EARS, NOSE, THROAT: Moist buccal mucosa. Head is atraumatic, normocephalic. Hears conversational speech. Poor dentition. RESPIRATORY: Non-labored respirations and equal bilateral excursions. No gross wheezes. CARDIOVASCULAR: Palpable 2+ radial pulses. ABDOMEN: Tender suprapubic. No peritonitis. MUSCULOSKELETAL: No clubbing cyanosis or edema. SKIN: Warm and well perfused with good skin turgor. NEUROLOGIC: Cranial nerves II through XII grossly intact. No focal or lateralizi ng signs. PSYCH: Appropriate affect. Alert and oriented to person, place and time. Displays appropriate insight. CLINCAL LABS: Reviewed. WBC 21.6 and elevated on admission now up from 13.6- 16.1, down to 14.1. STUDIES: CT of the abdomen and pelvis independently reviewed demonstrates no diffuse free air with findings of localized sigmoid perforated diverticulitis without organized abscess. This is my independent interpretation. ASSESSMENT: 1. Perforated sigmoid diverticulitis 2. Leukocytosis 3. History of colon polyp 4. Tobacco abuse disorder 5. Hypertensive heart disease 6. Peripheral vascular occlusive disease 7. Elevated creatinine due to dehydration PLAN: 1. We'll adjust pain medication to include IV Tylenol and IV Toradol as creatinine has improved. 2. Will avoid lisinopril in the interim. 3. Recommend PICC line for TPN and IV antibiotics for prolonged nothing by mout h status and antibiotic management 4. Will likely need prolonged antibiotics beyond 2+ weeks. 5. Disposition at least another 5-7 days pending improvement of abdominal pain and tolerating a low fiber diet 6. In the interim, continue nothing by mouth status except ice chips and popsicles 7. Strict tobacco cessation and counseling performed even upon outpatient basis. 8. Surgical options diverting colostomy reviewed in the presence of clinical deterioration for which the patient declined. Objective - Vital Signs Vital signs: Vital Signs Temp 98.9 F 01/07/22 14:00 Pulse 90 01/07/22 14:00 Resp 18 01/07/22 14:00 BP 163/78 01/07/22 14:00 Pulse Ox 96 01/07/22 14:00 FiO2 Intake & Output 01/06/22 01/07/22 01/07/22 18:59 06:59 18:59 Other: Voiding Method Toilet # Voids 4 2 - Labs CBC & Chem 7: 01/07/22 05:51 01/07/22 05:51 Labs: Abnormal Lab Results - Last 24 Hours (Table) 01/07/22 01/07/22 Range/Units 05:51 05:51 WBC 14.1 H (3.8-10.6) k/uL RBC 4.04 L (4.30-5.90) m/uL Hgb 12.5 L (13.0-17.5) gm/dL Hct 38.9 L (39.0-53.0) % Chloride 111 H (98-107) mmol/L Carbon Dioxide 18 L (22-30) mmol/L Calcium 8.1 L (8.4-10.2) mg/dL Phosphorus 2.4 L (2.5-4.5) mg/dL Total Protein 5.3 L (6.3-8.2) g/dL Albumin 2.8 L (3.5-5.0) g/dL Microbiology - Last 24 Hours (Table) 01/03/22 02:40 Blood Culture - Preliminary Blood No Growth after 96 hours 01/03/22 02:25 Blood Culture - Preliminary Blood No Growth after 96 hours
[2022-01-07] MEDS: KETOROLAC 15 MG/ML 1 ML VIAL IVP SCH ×2 (17:35→23:58)
[2022-01-07] MEDS: amLODIPine 5 MG TAB PO SCH (21:00)
[2022-01-07] MEDS: TAMSULOSIN 0.4 MG CAP.ER.24H PO SCH (21:00)
[2022-01-08] MEDS: PIPERACILLIN-TAZOBACTAM 3.375 GM in SODIUM CHLORIDE 0.9% 100 ML IVPB SCH ×3 (03:49→20:50)
[2022-01-08] MEDS: ACETAMINOPHEN TAB 500 MG TAB PO SCH ×4 (05:36→23:17)
[2022-01-08] MEDS: KETOROLAC 15 MG/ML 1 ML VIAL IVP SCH ×2 (05:36→11:46)
[2022-01-08 07:04] LABS: HCT 37.1 % (39.0-53.0); MCH 31.1 pg (25.0-35.0); MCHC 32.3 g/dL (31.0-37.0); MCV 96.4 fL (80.0-100.0); Mean Platelet Volume 9.1; Platelet Count 286 k/uL (150-450); RBC 3.85 m/uL (4.30-5.90); RDW 13.6 % (11.5-15.5); WBC 18.1 k/uL (3.8-10.6)
[2022-01-08] MEDS: ENOXAPARIN 40 MG/0.4 ML SYRINGE SQ SCH (07:08)
[2022-01-08] MEDS: GABAPENTIN 300 MG CAP PO SCH ×3 (07:12→22:25)
[2022-01-08] MEDS: PANTOPRAZOLE 40 MG TABLET PO SCH (07:12)
[2022-01-08] MEDS: NICOTINE 14MG/24HR PATCH TRANSDERM SCH (07:12)
[2022-01-08] MEDS: FLUCONAZOLE 100 MG TAB PO SCH (07:13)
[2022-01-08 07:16] LABS: African American GFR (CKD) 69 (>60 ml/min/1.73 sqM); Anion Gap 10 mmol/L; Blood Urea Nitrogen 15 mg/dL (9-20); Calcium 8.1 mg/dL (8.4-10.2); Carbon Dioxide 17 mmol/L (22-30); Chloride 111 mmol/L (98-107); Glucose 76 mg/dL (74-99); Non-African American GFR(CKD) 59 (>60 ml/min/1.73 sqM); Sodium 138 mmol/L (137-145)
--- NOTE | 2022-01-08 07:21 | P.PN ---
Subjective Progress Note Date: 01/07/22 Principal diagnosis: Leukocytosis Patient is a 61-year-old male presented to the hospital with abdominal pain has been diagnosed with a perforated diverticulitis with an abscess noticed to have slight worsening of his white count. On today's evaluation that is 01/07/2022, the patient denies having any fever or any chills, the patient is a medical floor abdominal pain, denies any chest pain or shortness of breath or cough and no nausea no vomiting did have small bowel movement Objective - Vital Signs Vital signs: Vital Signs Temp 98.5 F 01/07/22 08:00 Pulse 91 01/07/22 08:00 Resp 18 01/07/22 08:00 BP 141/51 01/07/22 08:00 Pulse Ox 92 L 01/07/22 08:00 FiO2 Intake & Output 01/06/22 01/07/22 01/07/22 18:59 06:59 18:59 Other: Voiding Method Toilet # Voids 4 2 - Exam GENERAL DESCRIPTION: A middle-age male lying in bed in no distress RESPIRATORY SYSTEM: Unlabored breathing , decreased breath sounds at bases HEART: S1 S2 regular rate and rhythm , ABDOMEN: Soft , mild tenderness EXTREMITIES: No edema feet - Labs CBC & Chem 7: 01/08/22 05:59 01/08/22 05:59 Labs: Abnormal Lab Results - Last 24 Hours (Table) 01/07/22 01/07/22 Range/Units 05:51 05:51 WBC 14.1 H (3.8-10.6) k/uL RBC 4.04 L (4.30-5.90) m/uL Hgb 12.5 L (13.0-17.5) gm/dL Hct 38.9 L (39.0-53.0) % Chloride 111 H (98-107) mmol/L Carbon Dioxide 18 L (22-30) mmol/L Calcium 8.1 L (8.4-10.2) mg/dL Phosphorus 2.4 L (2.5-4.5) mg/dL Total Protein 5.3 L (6.3-8.2) g/dL Albumin 2.8 L (3.5-5.0) g/dL Microbiology - Last 24 Hours (Table) 01/03/22 02:40 Blood Culture - Preliminary Blood No Growth after 96 hours 01/03/22 02:25 Blood Culture - Preliminary Blood No Growth after 96 hours Assessment and Plan (1) Diverticulitis of colon with perforation Current Visit: Yes Status: Acute Code(s): K57.20 - DVTRCLI OF LG INT W PERFORATION AND ABSCESS W/O BLEEDING SNOMED Code(s): 92969458 Plan: 1patient with a leukocytosis in this patient presented to hospital with abdominal pain and has been noticed to have perforated sigmoid diverticulitis with a small abscess now with evidence of worsening of the white count and rebound tenderness concern for possible worsening of the abscess as no other obvious focus of infection. 2repeat CAT scan did show significant amount of free fluid and submural abscess 3in view of the clinical and radiological finding patient will benefit from IV Zosyn along with oral Diflucan on discharge Time with Patient: Less than 30
[2022-01-08] MEDS: LACTATED RINGERS 1,000 ML IV SCH (09:28)
--- NOTE | 2022-01-08 09:28 | P.PN ---
Subjective Progress Note Date: 01/08/22 CHIEF COMPLAINT: Perforated diverticulitis HISTORY OF PRESENT ILLNESS: The patient is a 61 year old male admitted for perforated diverticulitis. He reports he has clinically improved. He reports no abdominal pain. REVIEW OF ORGAN SYSTEMS: No fevers or chills. No nausea or vomiting. No chest pain. No shortness of breath. PHYSICAL EXAM: VITALS: Reviewed CONSTITUTIONAL: Well developed and in no acute distress. EYES: Conjuctivae without sclera icterus. Extraocular movements grossly intact. HEAD, EARS, NOSE, THROAT: Moist buccal mucosa. Head is atraumatic, normocephalic. Hears conversational speech. Poor dentition. RESPIRATORY: Non-labored respirations and equal bilateral excursions. No gross wheezes. CARDIOVASCULAR: Palpable 2+ radial pulses. ABDOMEN: Non-tender. MUSCULOSKELETAL: No clubbing cyanosis or edema. SKIN: Warm and well perfused with good skin turgor. NEUROLOGIC: Cranial nerves II through XII grossly intact. No focal or lateralizing signs. PSYCH: Appropriate affect. Alert and oriented to person, place and time. Displays appropriate insight. CLINCAL LABS: Reviewed. WBC 21.6 and elevated on admission now up from 13.6- 16.1, down to 14.1, now 18.1 ASSESSMENT: 1. Perforated sigmoid diverticulitis 2. Leukocytosis 3. History of colon polyp 4. Tobacco abuse disorder 5. Hypertensive heart disease 6. Peripheral vascular occlusive disease 7. Elevated creatinine due to dehydration PLAN: 1. May start clear liquid diet as he reports now abdominal pain. TPN on hold. 2. Antibiotic management per infectious disease whether oral versus IV antibiotics upon discharge. 3. Review of medications performed with IV fluids moderately decreased per medicine. We'll increase IV fluids from 50 mL to 130 mL per hour due to prolonged nothing by mouth status and dehydration. 4. WBC now elevated. Infectious disease following. Objective - Vital Signs Vital signs: Vital Signs Temp 98.6 F 01/08/22 07:20 Pulse 78 01/08/22 07:20 Resp 17 01/08/22 07:20 BP 134/67 01/08/22 07:20 Pulse Ox 93 L 01/08/22 07:20 FiO2 Intake & Output 01/07/22 01/08/22 01/08/22 18:59 06:59 18:59 Other: # Voids 4 4 # Bowel Movements 2 - Labs CBC & Chem 7: 01/08/22 05:59 01/08/22 05:59 Labs: Abnormal Lab Results - Last 24 Hours (Table) 01/08/22 01/08/22 Range/Units 05:59 05:59 WBC 18.1 H (3.8-10.6) k/uL RBC 3.85 L (4.30-5.90) m/uL Hgb 12.0 L (13.0-17.5) gm/dL Hct 37.1 L (39.0-53.0) % Chloride 111 H (98-107) mmol/L Carbon Dioxide 17 L (22-30) mmol/L Creatinine 1.28 H (0.66-1.25) mg/dL Calcium 8.1 L (8.4-10.2) mg/dL Microbiology - Last 24 Hours (Table) 01/03/22 02:40 Blood Culture - Preliminary Blood No Growth after 120 hours 01/03/22 02:25 Blood Culture - Preliminary Blood No Growth after 120 hours
[2022-01-08] MEDS ORDERED: LIDOCAINE 1% INJ 10MG/ML (5 ML VIAL-PF) SQ ONE (10:07)
--- NOTE | 2022-01-08 11:06 | IR ---
EXAMINATION TYPE: IR cvc insert >=5 years DATE OF EXAM: 01/08/2022 COMPARISON: NONE CLINICAL HISTORY: Infection Needs long-term intravenous access for appendix, total parenteral nutriti on. PROCEDURE: Hand hygiene obtained with soap and water and alcohol-based hand rub. After informed consent, the skin overlying the left basilic vein was localized with ultrasound and no cole to be compressible and patent. An ultrasound image was obtained and submitted on the patient's c brown. The overlying skin was prepped and draped and Lidocaine was used for local anesthesia. A skin carolina was made with a scalpel. Access was gained to the vein under ultrasound guidance with a 21 gau ge needle and a 0.018 inch wire was advanced. Access site was dilated with Peel-Away sheath and cath eter tailored to the appropriate length and advanced such that the distal tip is at the cavoatrial ju nction. Spot image was obtained verifying placement. Catheter was fixed to the skin and a sterile d ressing was placed following hemostasis. Catheter was aspirated and flushed with saline. Patient wa s discharged in stable condition without complication.Maximal barrier technique is utilized. Ultraso und image is documented on the chart. Ultrasound used with sterile technique. Fluoro time and fluoroscopic images submitted to document procedure: 21 intraoperative C-arm images, 0.7 minutes fluoroscopy time IMPRESSION: STATUS POST ULTRASOUND AND FLUOROSCOPIC GUIDED PICC LINE PLACEMENT, READY FOR USE. THIS PROCEDURE WAS PERFORMED BY THE UNDERSIGNED.
[2022-01-08] MEDS: SODIUM CHLORIDE 0.9% 1,000 ML IV SCH ×2 (14:55→20:50)
--- NOTE | 2022-01-08 15:01 | P.PN ---
Subjective Progress Note Date: 01/08/22 (delayed charting seen at 0930) Principal diagnosis: abdominal pain Patient is a 61-year-old male with hypertension, hyperlipidemia, peripheral vascular disease with stenting, BPH, diverticulosis, and nicotine dependence who presented to the emergency department with abdominal pain. Found to have diverticulitis with microperforation. He was started on IV antibiotics with Flagyl and Unasyn and admitted under Gen. surgery team and we have been consulted for continued medical management throughout hospitalization. Patient seen and fully evaluated at bedside. He reports that his abdominal pain is much improved. Denies any nausea or vomiting. States he tolerated some clear liquids. We again discussed a PICC line and IV antibiotics worked at length. General: non toxic, no distress, appears at stated age Derm: warm, dry Head: atraumatic, normocephalic, symmetric Eyes: EOMI, no lid lag, anicteric sclera Mouth: no lip lesion, mucus membranes moist Cardiovascular: S1S2 reg, no murmur, positive posterior tibial pulse bilateral, Lungs: CTA bilateral, no rhonchi, no rales , no accessory muscle use Abdominal: soft, nontender to palpation left lower quadrant, no guarding, no appreciable organomegaly Ext: no gross muscle atrophy, no edema, no contractures Neuro: CN II-XI grossly intact, no focal neuro deficits Psych: Alert, oriented, appropriate affect Assessment/Plan: Acute sigmoid diverticulitis with perforation Intractable Abdominal pain secondary to above -General surgery is managing diverticulitis. Repeat CT with submucosal abscess -Hold Plavix and aspirin until further cleared by general surgery team to resume -Maintain IV fluid hydration -Continue PPI with Protonix 40 mg IVP daily -ID recs appreciated: zosyn, diflucan, likely will need IV ABx -Pain control, antiemetics Hyperchloremic metabolic acidosis - add sodium bicard tabs, stop toradol -Continue lactated Ringer's - repeat labs in AM Xeroderma of scalp - moisturizing shampoo after discharge. Hypertension -follow BP - amlodipine - lisinopril on hold per surgery Hyperlipidemia -Statin Peripheral vascular disease with previous stenting - outpatient follow-up BPH -Flomax. Nicotine dependence - tobacco cessation -Nicotine patch Thank you for allowing us to participate in the care of this pleasant patient. Do not hesitate to contact us with questions. Someone can be reached from the [facility] hospitalist group all hours of the day at [phone] or via perfect serve. Active Medications Active Medications Generic Name Dose Route Start Last Admin Trade Name Freq PRN Reason Stop Dose Admin Acetaminophen 1,000 mg 01/04/22 14:30 01/08/22 11:46 Acetaminophen Tab 500 Mg Tab PO 1,000 mg Q6HR SARAH Administration Amlodipine Besylate 5 mg 01/03/22 21:00 01/07/22 21:00 Amlodipine 5 Mg Tab PO 5 mg HS SARAH Administration Enoxaparin Sodium 40 mg 01/03/22 13:45 01/08/22 07:08 Enoxaparin 40 Mg/0.4 Ml Syringe SQ Not Given DAILY SARAH Fluconazole 200 mg 01/07/22 09:00 01/08/22 07:13 Fluconazole 100 Mg Tab PO 200 mg DAILY SARAH Administration Protocol Gabapentin 300 mg 01/04/22 16:00 01/08/22 07:12 Gabapentin 300 Mg Cap PO 300 mg TID SARAH Administration Hydromorphone HCl 1 mg 01/03/22 09:55 01/07/22 14:43 Hydromorphone 1 Mg/Ml 1 Ml Syringe IVP 1 mg Q3HR PRN Administration Pain Piperacillin Sod/Tazobactam 100 mls @ 25 mls/hr 01/05/22 12:00 01/08/22 11:46 Sod 3.375 gm/ Sodium Chloride IVPB 25 mls/hr Q8H SARAH Administration Protocol Sodium Chloride 1,000 mls @ 130 mls/hr 01/08/22 13:15 01/08/22 14:55 Saline 0.9% IV Not Given .[id number] [facility] Naloxone HCl 0.2 mg 01/03/22 01:44 Naloxone 0.4 Mg/Ml 1 Ml Vial IV Q2M PRN Opioid Reversal Nicotine 1 patch 01/03/22 09:00 01/08/22 07:12 Nicotine 14mg/24hr Patch TRANSDERM 1 patch DAILY SARAH Administration Ondansetron HCl 4 mg 01/03/22 01:44 01/06/22 16:27 Ondansetron 4 Mg/2 Ml Vial IVP 4 mg Q8HR PRN Administration Nausea And Vomiting Pantoprazole Sodium 40 mg 01/06/22 07:30 01/08/22 07:12 Pantoprazole 40 Mg Tablet PO 40 mg AC-BRKFST SARAH Administration Sodium Bicarbonate 325 mg 01/08/22 16:00 Sodium Bicarbonate Tab 650 Mg Tab PO TID SARAH Sodium Chloride 10 ml 01/08/22 11:01 Sodium Chloride 0.9% Flush 10 Ml Syringe IV Q4HR PRN PICC Line Sodium Chloride 10 ml 01/15/22 09:00 Sodium Chloride 0.9% Flush 10 Ml Syringe IV WEEKLY SARAH Sodium Chloride 20 ml 01/08/22 11:01 Sodium Chloride 0.9% Flush 10 Ml Syringe IV Q4HR PRN PICC Line Tamsulosin HCl 0.4 mg 01/03/22 21:00 01/07/22 21:00 Tamsulosin 0.4 Mg Cap.Er.24h PO 0.4 mg HS SARAH Administration Objective - Vital Signs Vital signs: Vital Signs Temp 97.8 F 01/08/22 13:50 Pulse 77 01/08/22 13:50 Resp 17 01/08/22 13:50 BP 120/66 01/08/22 13:50 Pulse Ox 93 L 01/08/22 13:50 FiO2 Intake & Output 01/07/22 01/08/22 01/08/22 18:59 06:59 18:59 Other: # Voids 4 4 # Bowel Movements 2 - Labs CBC & Chem 7: 01/08/22 05:59 01/08/22 05:59 Labs: Abnormal Lab Results - Last 24 Hours (Table) 01/08/22 01/08/22 Range/Units 05:59 05:59 WBC 18.1 H (3.8-10.6) k/uL RBC 3.85 L (4.30-5.90) m/uL Hgb 12.0 L (13.0-17.5) gm/dL Hct 37.1 L (39.0-53.0) % Chloride 111 H (98-107) mmol/L Carbon Dioxide 17 L (22-30) mmol/L Creatinine 1.28 H (0.66-1.25) mg/dL Calcium 8.1 L (8.4-10.2) mg/dL Microbiology - Last 24 Hours (Table) 01/03/22 02:40 Blood Culture - Preliminary Blood No Growth after 120 hours 01/03/22 02:25 Blood Culture - Preliminary Blood No Growth after 120 hours
[2022-01-08] MEDS: SODIUM BICARBONATE TAB 650 MG TAB PO SCH ×2 (16:08→22:25)
[2022-01-08] MEDS: TAMSULOSIN 0.4 MG CAP.ER.24H PO SCH (22:25)
[2022-01-08] MEDS: amLODIPine 5 MG TAB PO SCH (22:25)
[2022-01-08] MEDS: MAGNESIUM SULFATE-D5W PMX 1 GM in DEXTROSE/WATER 1 100ML.BAG IVPB SCH ×2 (22:41→23:50)
[2022-01-09] MEDS: PIPERACILLIN-TAZOBACTAM 3.375 GM in SODIUM CHLORIDE 0.9% 100 ML IVPB SCH ×3 (03:54→20:19)
[2022-01-09] MEDS: ACETAMINOPHEN TAB 500 MG TAB PO SCH ×3 (06:15→17:24)
--- NOTE | 2022-01-09 06:57 | XR ---
EXAMINATION TYPE: XR chest 1V portable DATE OF EXAM: 01/09/2022 COMPARISON: 01/03/2022 HISTORY: Hypoxemia TECHNIQUE: Single view FINDINGS: There is perihilar pulmonary airspace edema. Heart size is normal. No pleural effusion. No mediastinal adenopathy. There is left-sided central venous catheter with tip in the superior vena cav a. IMPRESSION: There is development of mild bilateral perihilar pulmonary interstitial and airspace lynnette a compared to recent exam. Normal heart.
[2022-01-09] MEDS ORDERED: FUROSEMIDE 10 MG/ML 10 ML VIAL IV STA (07:03)
[2022-01-09] MEDS: GABAPENTIN 300 MG CAP PO SCH ×3 (08:32→22:14)
[2022-01-09] MEDS: PANTOPRAZOLE 40 MG TABLET PO SCH (08:32)
[2022-01-09] MEDS: FLUCONAZOLE 100 MG TAB PO SCH (08:33)
[2022-01-09] MEDS: SODIUM BICARBONATE TAB 650 MG TAB PO SCH ×3 (08:33→22:14)
[2022-01-09] MEDS: ENOXAPARIN 40 MG/0.4 ML SYRINGE SQ SCH (08:33)
[2022-01-09] MEDS: NICOTINE 14MG/24HR PATCH TRANSDERM SCH (08:33)
[2022-01-09 09:19] LABS: HCT 42.2 % (39.0-53.0); HGB 13.3 gm/dL (13.0-17.5); Hypochromasia Slight; MCH 30.9 pg (25.0-35.0); MCHC 31.6 g/dL (31.0-37.0); MCV 97.7 fL (80.0-100.0); Platelet Count 347 k/uL (150-450); RBC 4.32 m/uL (4.30-5.90); RDW 14.5 % (11.5-15.5); WBC 17.7 k/uL (3.8-10.6)
[2022-01-09 09:25] LABS: African American GFR (CKD) 74 (>60 ml/min/1.73 sqM); Anion Gap 16 mmol/L; Blood Urea Nitrogen 15 mg/dL (9-20); Calcium 8.2 mg/dL (8.4-10.2); Carbon Dioxide 16 mmol/L (22-30); Chloride 108 mmol/L (98-107); Glucose 77 mg/dL (74-99); Magnesium 2.1 mg/dL (1.6-2.3); Non-African American GFR(CKD) 64 (>60 ml/min/1.73 sqM); Potassium 3.8 mmol/L (3.5-5.1); Sodium 140 mmol/L (137-145)
[2022-01-09] MEDS: SODIUM CHLORIDE 0.9% 1,000 ML IV SCH (09:42)
--- NOTE | 2022-01-09 13:31 | P.PN ---
Subjective Progress Note Date: 01/09/22 CHIEF COMPLAINT: Perforated diverticulitis HISTORY OF PRESENT ILLNESS: Patient admitted with perforated diverticulitis. Patient reports mid lower abdominal pain near the suprapubic area. He rates his pain about a 2 out of 10. He had worsening shortness of breath last night with evidence of fluid overload. He received IV Lasix and fluids were decreased to 10 mL per hour. Patient reports having bowel movements. Denies any nausea or vomiting. Chest x-ray development of mild bilateral perihilar pulmonary interstitial and airspace edema. Normal heart. Afebrile. 2 L at 95% WBC is down from 18.1-17.7 Hgb 13.3 platelets 347 sodium is 140 potassium 3.8 CO2 16 creatinine is down from 1.28 1.1 BNP elevated at 6800 PHYSICAL EXAM: VITAL SIGNS: Reviewed GENERAL: Well-developed in no acute distress. HEENT: No sclera icterus. Extraocular movements grossly intact. Moist buccal mucosa. Head is atraumatic, normocephalic. Hears conversational speech. No nasal drainage. NECK: Supple without lymphadenopathy. CHEST: Non-labored respirations and equal bilateral excursions. CARDIOVASCULAR: Palpable 2+ radial pulses. ABDOMEN: Soft. Nondistended. No signs of peritonitis. Tenderness with pa lpation of lower mid abdomen MUSCULOSKELETAL: No clubbing or cyanosis. NEUROLOGIC: No focal or lateralizing signs. Cranial nerves II through XII grossly intact. PSYCH: Appropriate affect. Alert and oriented to person, place and time. SKIN: Well perfused. Good skin turgor. ASSESSMENT: 1. Acute sigmoid diverticulitis with perforation 2. Leukocytosis 3. Nicotine dependence 4. History of peripheral arterial disease with stent and on Plavix at home 5. Hypertension 6. Hyperlipidemia 7. Atelectasis 8. Elevated creatinine due to dehydration has improved 9. Fluid overload PLAN: -Continue conservative management -Continue clear liquid diet -Antibiotics per ID service -Fluid overload management per medicine service -Discussed smoking cessation -Continue to hold Plavix for possible surgical intervention -DVT prophylaxis Lovenox Physician Staff Command And Control Officer note has been reviewed by physician. Signing provider agrees with the documented findings, assessment, and plan of care. CHIEF COMPLAINT: Perforated diverticulitis HISTORY OF PRESENT ILLNESS: The patient is a 61 year old male admitted for perforated diverticulitis. Yesterday, patient was placed on a liquid diet and today reports very mild suprapubic lower abdominal discomfort. Separately, patient reports having dyspnea last night. Medicine following. Patient was placed on IV Lasix. Reports improvement in his breathing today. He continues to have bowel movements and pass moderate flatus. He is tolerating diet. REVIEW OF ORGAN SYSTEMS: No fevers or chills. No nausea or vomiting. No chest pain. PHYSICAL EXAM: VITALS: Reviewed CONSTITUTIONAL: Well developed and in no acute distress. EYES: Conjuctivae without sclera icterus. Extraocular movements grossly intact. HEAD, EARS, NOSE, THROAT: Moist buccal mucosa. Head is atraumatic, normocephalic. Hears conversational speech. Poor dentition. RESPIRATORY: Non-labored respirations and equal bilateral excursions. CARDIOVASCULAR: Palpable 2+ radial pulses. ABDOMEN: No peritonitis. Minimal tenderness left lower quadrant.. MUSCULOSKELETAL: No clubbing cyanosis or edema. SKIN: Warm and well perfused with good skin turgor. NEUROLOGIC: Cranial nerves II through XII grossly intact. No focal or lateralizing signs. PSYCH: Appropriate affect. Alert and oriented to person, place and time. Displays appropriate insight. CLINCAL LABS: Reviewed. WBC 21.6 and elevated on admission now down to 17.7 from 18.1 yesterday. REPORTS: Chest x-ray report confirms interval development of bilateral airspace edema. ASSESSMENT: 1. Perforated sigmoid diverticulitis 2. Leukocytosis 3. History of colon polyp 4. Tobacco abuse disorder 5. Hypertensive heart disease 6. Peripheral vascular occlusive disease 7. Elevated creatinine due to dehydration PLAN: 1. Clinically, patient is tolerating liquid diet however we'll monitor progression of abdominal pain. 2. Continue to monitor with blood cell count. 3. Likely, IV antibiotics upon discharge reviewed 4. Disposition in 1 week pending improvement of abdominal pain including leukocytosis Objective - Vital Signs Vital signs: Vital Signs Temp 98.8 F 01/09/22 07:35 Pulse 100 01/09/22 07:35 Resp 18 01/09/22 02:00 BP 158/69 01/09/22 07:35 Pulse Ox 95 01/09/22 07:35 FiO2 Intake & Output 01/08/22 01/09/22 01/09/22 18:59 06:59 18:59 Intake Total 240 Balance 240 Intake: Oral 240 Other: Voiding Method Toilet # Voids 5 3 # Bowel Movements 1 - Labs CBC & Chem 7: 01/09/22 08:35 01/09/22 08:35 Labs: Abnormal Lab Results - Last 24 Hours (Table) 01/09/22 01/09/22 Range/Units 08:35 08:35 WBC 17.7 H (3.8-10.6) k/uL Chloride 108 H (98-107) mmol/L Carbon Dioxide 16 L (22-30) mmol/L Calcium 8.2 L (8.4-10.2) mg/dL Microbiology - Last 24 Hours (Table) 01/03/22 02:40 Blood Culture - Final Blood No Growth after 144 hours 01/03/22 02:25 Blood Culture - Final Blood No Growth after 144 hours
--- NOTE | 2022-01-09 15:49 | P.PN ---
Subjective Progress Note Date: 01/09/22 (delayed charting seen at ) Principal diagnosis: abdominal pain Patient is a 61-year-old male with hypertension, hyperlipidemia, peripheral vascular disease with stenting, BPH, diverticulosis, and nicotine dependence who presented to the emergency department with abdominal pain. Found to have diverticulitis with microperforation. He was started on IV antibiotics with Flagyl and Unasyn and admitted under Gen. surgery team and we have been consulted for continued medical management throughout hospitalization. 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 Is given with Lasix 80 mg IV push 1. Patient seen and fully evaluated at bedside. He states abdominal pain is better than yesterday. He has not really wanted to try any of the liquids if he does not like his clear liquid diet. States his breathing is much better than last night and is feeling improved after urinating. General: non toxic, no distress, appears at stated age Derm: warm, dry Head: atraumatic, normocephalic, symmetric Eyes: EOMI, no lid lag, anicteric sclera Mouth: no lip lesion, mucus membranes moist Cardiovascular: S1S2 tachycardia, no murmur, positive posterior tibial pulse bilateral, Lungs: CTA bilateral, no rhonchi, no rales , no accessory muscle use Abdominal: soft, distended, nontender to palpation left lower quadrant, no guarding, no appreciable organomegaly Ext: no gross muscle atrophy, no edema, no contractures Neuro: CN II-XI grossly intact, no focal neuro deficits Psych: Alert, oriented, appropriate affect Assessment/Plan: Acute sigmoid diverticulitis with perforation Intractable Abdominal pain secondary to above -General surgery is managing diverticulitis. Repeat CT with submucosal abscess -Hold Plavix and aspirin until further cleared by general surgery team to resume -Maintain IV fluid hydration -Continue PPI with Protonix 40 mg IVP daily -ID recs appreciated: zosyn, diflucan, likely will need IV ABx -Pain control, antiemetics Flash pulmonary edema secondary to fluid overload -Stop IV fluids -Patient received Lasix IV push overnight. We'll start twice daily. -Patient had an echocardiogram this admission which showed a preserved ejection fraction but mild LVH. Hyperchloremic metabolic acidosis -Sodium bicarb tablets -Continue lactated Ringer's - repeat labs in AM Xeroderma of scalp - moisturizing shampoo after discharge. Hypertension -follow BP - amlodipine - lisinopril on hold per surgery Hyperlipidemia -Statin Peripheral vascular disease with previous stenting - outpatient follow-up BPH -Flomax. Nicotine dependence - tobacco cessation -Nicotine patch Active Medications Generic Name Dose Route Start Last Admin Trade Name Freq PRN Reason Stop Dose Admin Acetaminophen 1,000 mg 01/04/22 14:30 01/09/22 11:10 Acetaminophen Tab 500 Mg Tab PO 1,000 mg Q6HR SARAH Administration Amlodipine Besylate 5 mg 01/03/22 21:00 01/08/22 22:25 Amlodipine 5 Mg Tab PO 5 mg HS SARAH Administration Enoxaparin Sodium 40 mg 01/03/22 13:45 01/09/22 08:33 Enoxaparin 40 Mg/0.4 Ml Syringe SQ 40 mg DAILY SARAH Administration Fluconazole 200 mg 01/07/22 09:00 01/09/22 08:33 Fluconazole 100 Mg Tab PO 200 mg DAILY SARAH Administration Protocol Furosemide 40 mg 01/09/22 21:00 Furosemide 10 Mg/Ml 4 Ml Vial IV Q12HR SARAH Gabapentin 300 mg 01/04/22 16:00 01/09/22 15:28 Gabapentin 300 Mg Cap PO 300 mg TID SARAH Administration Hydromorphone HCl 1 mg 01/03/22 09:55 01/07/22 14:43 Hydromorphone 1 Mg/Ml 1 Ml Syringe IVP 1 mg Q3HR PRN Administration Pain Piperacillin Sod/Tazobactam 100 mls @ 25 mls/hr 01/05/22 12:00 01/09/22 11:11 Sod 3.375 gm/ Sodium Chloride IVPB 25 mls/hr Q8H SARAH Administration Protocol Naloxone HCl 0.2 mg 01/03/22 01:44 Naloxone 0.4 Mg/Ml 1 Ml Vial IV Q2M PRN Opioid Reversal Nicotine 1 patch 01/03/22 09:00 01/09/22 08:33 Nicotine 14mg/24hr Patch TRANSDERM 1 patch DAILY SARAH Administration Ondansetron HCl 4 mg 01/03/22 01:44 01/06/22 16:27 Ondansetron 4 Mg/2 Ml Vial IVP 4 mg Q8HR PRN Administration Nausea And Vomiting Pantoprazole Sodium 40 mg 01/06/22 07:30 01/09/22 08:32 Pantoprazole 40 Mg Tablet PO 40 mg AC-BRKFST SARAH Administration Sodium Bicarbonate 325 mg 01/08/22 16:00 01/09/22 15:28 Sodium Bicarbonate Tab 650 Mg Tab PO 325 mg TID SARAH Administration Sodium Chloride 10 ml 01/08/22 11:01 Sodium Chloride 0.9% Flush 10 Ml Syringe IV Q4HR PRN PICC Line Sodium Chloride 10 ml 01/15/22 09:00 Sodium Chloride 0.9% Flush 10 Ml Syringe IV WEEKLY SARAH Sodium Chloride 20 ml 01/08/22 11:01 Sodium Chloride 0.9% Flush 10 Ml Syringe IV Q4HR PRN PICC Line Tamsulosin HCl 0.4 mg 01/03/22 21:00 01/08/22 22:25 Tamsulosin 0.4 Mg Cap.Er.24h PO 0.4 mg HS SARAH Administration Objective - Vital Signs Vital signs: Vital Signs Temp 98.0 F 01/09/22 14:00 Pulse 73 01/09/22 14:00 Resp 17 01/09/22 14:00 BP 138/71 01/09/22 14:00 Pulse Ox 96 01/09/22 14:00 FiO2 Intake & Output 01/08/22 01/09/22 01/09/22 18:59 06:59 18:59 Intake Total 240 Balance 240 Intake: Oral 240 Other: Voiding Method Toilet # Voids 5 3 # Bowel Movements 1 - Labs CBC & Chem 7: 01/09/22 08:35 01/09/22 08:35 Labs: Abnormal Lab Results - Last 24 Hours (Table) 01/09/22 01/09/22 Range/Units 08:35 08:35 WBC 17.7 H (3.8-10.6) k/uL Chloride 108 H (98-107) mmol/L Carbon Dioxide 16 L (22-30) mmol/L Calcium 8.2 L (8.4-10.2) mg/dL Microbiology - Last 24 Hours (Table) 01/03/22 02:40 Blood Culture - Final Blood No Growth after 144 hours 01/03/22 02:25 Blood Culture - Final Blood No Growth after 144 hours
[2022-01-09] MEDS: TAMSULOSIN 0.4 MG CAP.ER.24H PO SCH (20:19)
[2022-01-09] MEDS: amLODIPine 5 MG TAB PO SCH (20:19)
[2022-01-09] MEDS: FUROSEMIDE 10 MG/ML 4 ML VIAL IV SCH (20:20)
[2022-01-10] MEDS: ACETAMINOPHEN TAB 500 MG TAB PO SCH ×5 (00:55→23:51)
[2022-01-10] MEDS: PIPERACILLIN-TAZOBACTAM 3.375 GM in SODIUM CHLORIDE 0.9% 100 ML IVPB SCH ×3 (04:25→19:11)
[2022-01-10 07:39] LABS: HCT 39.3 % (39.0-53.0); HGB 12.8 gm/dL (13.0-17.5); MCH 30.7 pg (25.0-35.0); MCHC 32.4 g/dL (31.0-37.0); MCV 94.7 fL (80.0-100.0); Mean Platelet Volume 7.7; Platelet Count 409 k/uL (150-450); RBC 4.15 m/uL (4.30-5.90); RDW 14.4 % (11.5-15.5); WBC 11.7 k/uL (3.8-10.6)
[2022-01-10 07:58] LABS: African American GFR (CKD) 67 (>60 ml/min/1.73 sqM); Anion Gap 7 mmol/L; Blood Urea Nitrogen 15 mg/dL (9-20); Carbon Dioxide 28 mmol/L (22-30); Chloride 103 mmol/L (98-107); Glucose 86 mg/dL (74-99); Magnesium 1.8 mg/dL (1.6-2.3); Non-African American GFR(CKD) 58 (>60 ml/min/1.73 sqM); Potassium 3.1 mmol/L (3.5-5.1); Sodium 138 mmol/L (137-145)
[2022-01-10] MEDS: PANTOPRAZOLE 40 MG TABLET PO SCH (08:12)
[2022-01-10] MEDS: SODIUM BICARBONATE TAB 650 MG TAB PO SCH (08:13)
[2022-01-10] MEDS: GABAPENTIN 300 MG CAP PO SCH ×3 (08:13→21:03)
[2022-01-10] MEDS: FLUCONAZOLE 100 MG TAB PO SCH (08:13)
[2022-01-10] MEDS: NICOTINE 14MG/24HR PATCH TRANSDERM SCH (08:14)
[2022-01-10] MEDS: FUROSEMIDE 10 MG/ML 4 ML VIAL IV SCH (08:14)
[2022-01-10] MEDS ORDERED: POTASSIUM CHLORIDE ER 20 MEQ TAB.ER PO STA (08:14)
[2022-01-10] MEDS: ENOXAPARIN 40 MG/0.4 ML SYRINGE SQ SCH (08:14)
--- NOTE | 2022-01-10 08:16 | P.PN ---
Subjective Progress Note Date: 01/08/22 Principal diagnosis: Leukocytosis Patient is a 61-year-old male presented to the hospital with abdominal pain has been diagnosed with a perforated diverticulitis with an abscess noticed to have slight worsening of his white count. On today's evaluation that is 01/08/2022, the patient remains to be afebrile, the patient has decreased in intensity lower abdominal pain, the patient denies any chest pain or shortness of breath or cough and no nausea no vomiting did have small bowel movement Objective - Vital Signs Vital signs: Vital Signs Temp 98.6 F 01/08/22 07:20 Pulse 78 01/08/22 07:20 Resp 17 01/08/22 07:20 BP 134/67 01/08/22 07:20 Pulse Ox 93 L 01/08/22 07:20 FiO2 Intake & Output 01/07/22 01/08/22 01/08/22 18:59 06:59 18:59 Other: # Voids 4 4 # Bowel Movements 2 - Exam GENERAL DESCRIPTION: A middle-age male lying in bed in no distress RESPIRATORY SYSTEM: Unlabored breathing , decreased breath sounds at bases HEART: S1 S2 regular rate and rhythm , ABDOMEN: Soft , mild tenderness EXTREMITIES: No edema feet - Labs CBC & Chem 7: 01/10/22 07:22 01/10/22 07:22 Labs: Abnormal Lab Results - Last 24 Hours (Table) 01/08/22 01/08/22 Range/Units 05:59 05:59 WBC 18.1 H (3.8-10.6) k/uL RBC 3.85 L (4.30-5.90) m/uL Hgb 12.0 L (13.0-17.5) gm/dL Hct 37.1 L (39.0-53.0) % Chloride 111 H (98-107) mmol/L Carbon Dioxide 17 L (22-30) mmol/L Creatinine 1.28 H (0.66-1.25) mg/dL Calcium 8.1 L (8.4-10.2) mg/dL Microbiology - Last 24 Hours (Table) 01/03/22 02:40 Blood Culture - Preliminary Blood No Growth after 120 hours 01/03/22 02:25 Blood Culture - Preliminary Blood No Growth after 120 hours Assessment and Plan (1) Diverticulitis of colon with perforation Current Visit: Yes Status: Acute Code(s): K57.20 - DVTRCLI OF LG INT W PERFORATION AND ABSCESS W/O BLEEDING SNOMED Code(s): 51524893 Plan: 1patient with a leukocytosis in this patient presented to hospital with abdominal pain and has been noticed to have perforated sigmoid diverticulitis with a small abscess now with evidence of worsening of the white count and rebound tenderness concern for possible worsening of the abscess as no other obvious focus of infection. 2repeat CAT scan did show significant amount of free fluid and submural abscess 3patient to continue with IV Zosyn along with oral Diflucan while monitoring clinical course closely Time with Patient: Less than 30
--- NOTE | 2022-01-10 08:17 | P.PN ---
Subjective Progress Note Date: 01/09/22 Principal diagnosis: Leukocytosis Patient is a 61-year-old male presented to the hospital with abdominal pain has been diagnosed with a perforated diverticulitis with an abscess noticed to have slight worsening of his white count. On today's evaluation that is 01/09/2022, the patient denies any fever or chills, the patient denies any worsening abdominal pain, the patient denies any chest pain or shortness of breath or cough and no nausea no vomiting did have some loose stools Objective - Vital Signs Vital signs: Vital Signs Temp 98.8 F 01/09/22 07:35 Pulse 100 01/09/22 07:35 Resp 18 01/09/22 02:00 BP 158/69 01/09/22 07:35 Pulse Ox 95 01/09/22 07:35 FiO2 Intake & Output 01/08/22 01/09/22 01/09/22 18:59 06:59 18:59 Intake Total 240 Balance 240 Intake: Oral 240 Other: Voiding Method Toilet # Voids 5 3 # Bowel Movements 1 - Exam GENERAL DESCRIPTION: A middle-age male lying in bed in no distress RESPIRATORY SYSTEM: Unlabored breathing , decreased breath sounds at bases HEART: S1 S2 regular rate and rhythm , ABDOMEN: Soft , mild tenderness EXTREMITIES: No edema feet - Labs CBC & Chem 7: 01/10/22 07:22 01/10/22 07:22 Labs: Abnormal Lab Results - Last 24 Hours (Table) 01/09/22 01/09/22 Range/Units 08:35 08:35 WBC 17.7 H (3.8-10.6) k/uL Chloride 108 H (98-107) mmol/L Carbon Dioxide 16 L (22-30) mmol/L Calcium 8.2 L (8.4-10.2) mg/dL Microbiology - Last 24 Hours (Table) 01/03/22 02:40 Blood Culture - Final Blood No Growth after 144 hours 01/03/22 02:25 Blood Culture - Final Blood No Growth after 144 hours Assessment and Plan (1) Diverticulitis of colon with perforation Current Visit: Yes Status: Acute Code(s): K57.20 - DVTRCLI OF LG INT W PERFORATION AND ABSCESS W/O BLEEDING SNOMED Code(s): 56526000 Plan: 1patient with a leukocytosis in this patient presented to hospital with abdominal pain and has been noticed to have perforated sigmoid diverticulitis with a small abscess now with evidence of worsening of the white count and rebound tenderness concern for possible worsening of the abscess as no other obvious focus of infection. 2repeat CAT scan did show significant amount of free fluid and submural abscess 3patient is on a clinical improvement and plan is to continue with IV Zosyn along with oral Diflucan2 weeks on discharge Time with Patient: Less than 30
--- NOTE | 2022-01-10 09:47 | XR ---
EXAMINATION TYPE: XR chest 1V portable DATE OF EXAM: 01/10/2022 COMPARISON: 01/09/2022 INDICATION: CHF TECHNIQUE: Single frontal view of the chest is obtained. FINDINGS: The heart size is normal. The pulmonary vasculature is normal. There is patchy infiltrate in left perihilar region. Mild subtle infiltrate may be to the right perih ilar region. Findings on the right have improved. Left perihilar infiltrate is new IMPRESSION: 1. Changing perihilar infiltrates. Correlate for left perihilar pneumonia. Atelectasis could be consi dered. Continued follow-up is recommended.
[2022-01-10] MEDS ORDERED: ACETAMINOPHEN TAB 500 MG TAB ONE (11:25)
--- NOTE | 2022-01-10 14:42 | P.PN ---
Subjective Progress Note Date: 01/10/22 Principal diagnosis: abdominal pain Patient is a 61-year-old male with hypertension, hyperlipidemia, peripheral vascular disease with stenting, BPH, diverticulosis, and nicotine dependence who presented to the emergency department with abdominal pain. Found to have diverticulitis with microperforation. He was started on IV antibiotics with Flagyl and Unasyn and admitted under Gen. surgery team and we have been consulted for continued medical management throughout hospitalization. 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 Is given with Lasix 80 mg IV push 1. Patient seen and fully evaluated at bedside. Feeling much better, pain improved, shortness of breath resolved. General: non toxic, no distress, appears at stated age Derm: warm, dry Head: atraumatic, normocephalic, symmetric Eyes: EOMI, no lid lag, anicteric sclera Mouth: no lip lesion, mucus membranes moist Cardiovascular: S1S2 tachycardia, no murmur, positive posterior tibial pulse bilateral, Lungs: CTA bilateral, no rhonchi, no rales , no accessory muscle use Abdominal: soft, distended, +tender to palpation left lower quadrant, no guarding, no appreciable organomegaly Ext: no gross muscle atrophy, no edema, no contractures Neuro: CN II-XI grossly intact, no focal neuro deficits Psych: Alert, oriented, appropriate affect Assessment/Plan: Acute sigmoid diverticulitis with perforation Intractable Abdominal pain secondary to above -General surgery is managing diverticulitis. Repeat CT with submucosal abscess -Hold Plavix and aspirin until further cleared by general surgery team to resume -Maintain IV fluid hydration -Continue PPI with Protonix 40 mg IVP daily -ID recs appreciated: zosyn, diflucan, X 2 weeks on discharge, PICC line in place -Pain control, antiemetics Flash pulmonary edema secondary to fluid overload - D/C lasix - Will review X-ray when able to load in the computer, -Patient had an echocardiogram this admission which showed a preserved ejection fraction but mild LVH. Hyperchloremic metabolic acidosis, resolved -Sodium bicarb tablets discontinued Xeroderma of scalp - moisturizing shampoo after discharge. Hypertension -follow BP - amlodipine - lisinopril on hold per surgery Hyperlipidemia -Statin Peripheral vascular disease with previous stenting - outpatient follow-up BPH -Flomax. Nicotine dependence - tobacco cessation -Nicotine patch Active Medications Generic Name Dose Route Start Last Admin Trade Name Freq PRN Reason Stop Dose Admin Acetaminophen 1,000 mg 01/04/22 14:30 01/10/22 05:55 Acetaminophen Tab 500 Mg Tab PO 1,000 mg Q6HR SARAH Administration Amlodipine Besylate 5 mg 01/03/22 21:00 01/09/22 20:19 Amlodipine 5 Mg Tab PO 5 mg HS SARAH Administration Enoxaparin Sodium 40 mg 01/03/22 13:45 01/10/22 08:14 Enoxaparin 40 Mg/0.4 Ml Syringe SQ 40 mg DAILY SARAH Administration Fluconazole 200 mg 01/07/22 09:00 01/10/22 08:13 Fluconazole 100 Mg Tab PO 200 mg DAILY SARAH Administration Protocol Gabapentin 300 mg 01/04/22 16:00 01/10/22 08:13 Gabapentin 300 Mg Cap PO 300 mg TID SARAH Administration Hydromorphone HCl 1 mg 01/03/22 09:55 01/07/22 14:43 Hydromorphone 1 Mg/Ml 1 Ml Syringe IVP 1 mg Q3HR PRN Administration Pain Piperacillin Sod/Tazobactam 100 mls @ 25 mls/hr 01/05/22 12:00 01/10/22 04:25 Sod 3.375 gm/ Sodium Chloride IVPB 25 mls/hr Q8H SARAH Administration Protocol Naloxone HCl 0.2 mg 01/03/22 01:44 Naloxone 0.4 Mg/Ml 1 Ml Vial IV Q2M PRN Opioid Reversal Nicotine 1 patch 01/03/22 09:00 01/10/22 08:14 Nicotine 14mg/24hr Patch TRANSDERM 1 patch DAILY SARAH Administration Ondansetron HCl 4 mg 01/03/22 01:44 01/06/22 16:27 Ondansetron 4 Mg/2 Ml Vial IVP 4 mg Q8HR PRN Administration Nausea And Vomiting Pantoprazole Sodium 40 mg 01/06/22 07:30 01/10/22 08:12 Pantoprazole 40 Mg Tablet PO 40 mg AC-BRKFST SARAH Administration Sodium Bicarbonate 325 mg 01/08/22 16:00 01/10/22 08:13 Sodium Bicarbonate Tab 650 Mg Tab PO 325 mg TID SARAH Administration Sodium Chloride 10 ml 01/08/22 11:01 Sodium Chloride 0.9% Flush 10 Ml Syringe IV Q4HR PRN PICC Line Sodium Chloride 10 ml 01/15/22 09:00 Sodium Chloride 0.9% Flush 10 Ml Syringe IV WEEKLY SARAH Sodium Chloride 20 ml 01/08/22 11:01 Sodium Chloride 0.9% Flush 10 Ml Syringe IV Q4HR PRN PICC Line Tamsulosin HCl 0.4 mg 01/03/22 21:00 01/09/22 20:19 Tamsulosin 0.4 Mg Cap.Er.24h PO 0.4 mg HS SARAH Administration Objective - Vital Signs Vital signs: Vital Signs Temp 98.0 F 01/10/22 07:46 Pulse 71 01/10/22 07:46 Resp 21 01/10/22 07:46 BP 135/59 01/10/22 07:46 Pulse Ox 94 L 01/10/22 07:46 FiO2 Intake & Output 01/09/22 01/10/22 01/10/22 18:59 06:59 18:59 Output Total 400 Balance -400 Output: Urine 400 Other: Voiding Method Toilet Toilet # Voids 15 # Bowel Movements 1 - Labs CBC & Chem 7: 01/10/22 07:22 01/10/22 07:22 Labs: Abnormal Lab Results - Last 24 Hours (Table) 01/10/22 01/10/22 Range/Units 07:22 07:22 WBC 11.7 H (3.8-10.6) k/uL RBC 4.15 L (4.30-5.90) m/uL Hgb 12.8 L (13.0-17.5) gm/dL Potassium 3.1 L (3.5-5.1) mmol/L Creatinine 1.31 H (0.66-1.25) mg/dL Calcium 8.0 L (8.4-10.2) mg/dL
[2022-01-10 14:53] VITALS: BMI 30.7
--- NOTE | 2022-01-10 14:56 | P.PN ---
Subjective Progress Note Date: 01/10/22 CHIEF COMPLAINT: Perforated diverticulitis HISTORY OF PRESENT ILLNESS: Patient admitted with perforated diverticulitis. Patient rates his pain about a 2 out of 10. He had slight increase in pain at 3 AM this morning. But that is showing improvement. His overall pain is better than on admission. He does report having flatus and BM. Denies any nausea or vomiting. He reports that his shortness of breath has resolved. Afebrile. WBC trending downwards from 17.7-11.7 hemoglobin 12.8 platelets 409 sodium is 138 potassium is 3.1 creatinine is up at 1.31 magnesium 1.8 Unable to review chest x-ray results. [facility] is down PHYSICAL EXAM: VITAL SIGNS: Reviewed GENERAL: Well-developed in no acute distress. HEENT: No sclera icterus. Extraocular movements grossly intact. Moist buccal mucosa. Head is atraumatic, normocephalic. Hears conversational speech. No nasal drainage. NECK: Supple without lymphadenopathy. CHEST: Non-labored respirations and equal bilateral excursions. CARDIOVASCULAR: Palpable 2+ radial pulses. ABDOMEN: Soft. Nondistended. No signs of peritonitis. Tenderness with palpation of lower mid abdomen MUSCULOSKELETAL: No clubbing or cyanosis. NEUROLOGIC: No focal or lateralizing signs. Cranial nerves II through XII grossly intact. PSYCH: Appropriate affect. Alert and oriented to person, place and time. SKIN: Well perfused. Good skin turgor. ASSESSMENT: 1. Acute sigmoid diverticulitis with perforation 2. Leukocytosis 3. Nicotine dependence 4. History of peripheral arterial disease with stent and on Plavix at home 5. Hypertension 6. Hyperlipidemia 7. Atelectasis 8. Elevated creatinine due to dehydration has improved 9. Fluid overload 10. Hypokalemia PLAN: -Continue conservative management -Advance diet to low fiber -Replace potassium -Check phosphorus level -Antibiotics per ID service. They are recommending IV antibiotics at discharge -Fluid overload management per medicine service -Discussed smoking cessation -Continue to hold Plavix for possible surgical intervention -DVT prophylaxis Lovenox Physician Fly Frame Tender note has been reviewed by physician. Signing provider agrees with the documented findings, assessment, and plan of care. CHIEF COMPLAINT: Perforated diverticulitis HISTORY OF PRESENT ILLNESS: The patient is a 61 year old male admitted for perforated diverticulitis. No further reports of shortness of breath. He is tolerated full liquid diet. He is eager to have a sandwich. He reports complete abstinence from tobacco abuse. He is having bowel movements and passing flatus. Denies moderate abdominal pain. REVIEW OF ORGAN SYSTEMS: No fevers or chills. No nausea or vomiting. No chest pain. PHYSICAL EXAM: VITALS: Reviewed CONSTITUTIONAL: Well developed and in no acute distress. EYES: Conjuctivae without sclera icterus. Extraocular movements grossly intact. HEAD, EARS, NOSE, THROAT: Moist buccal mucosa. Head is atraumatic, normocephalic. Hears conversational speech. Poor dentition. RESPIRATORY: Non-labored respirations and equal bilateral excursions. CARDIOVASCULAR: Palpable 2+ radial pulses. ABDOMEN: No peritonitis. Minimal tenderness or abdomen. MUSCULOSKELETAL: No clubbing cyanosis or edema. SKIN: Warm and well perfused with good skin turgor. NEUROLOGIC: Cranial nerves II through XII grossly intact. No focal or lateralizing signs. PSYCH: Appropriate affect. Alert and oriented to person, place and time. Displays appropriate insight. CLINCAL LABS: Reviewed. WBC 21.6 and elevated on admission down to 11.7 REPORTS: Chest x-ray report demonstrated improvement of pulmonary vasculature. ASSESSMENT: 1. Perforated sigmoid diverticulitis 2. Leukocytosis 3. History of colon polyp 4. Tobacco abuse disorder 5. Hypertensive heart disease 6. Peripheral vascular occlusive disease 7. Elevated creatinine due to dehydration PLAN: 1. We will advance diet to low fiber diet. 2. Infectious disease input appreciated with Zosyn and and Diflucan upon discharge with PICC line 3. Disposition pending resolution of WBC and tolerating a low fiber diet for discharge, 24-48 hours Objective - Vital Signs Vital signs: Vital Signs Temp 98.5 F 01/10/22 13:35 Pulse 70 01/10/22 13:35 Resp 21 01/10/22 13:35 BP 128/66 01/10/22 13:35 Pulse Ox 94 L 01/10/22 13:35 FiO2 Intake & Output 01/09/22 01/10/22 01/10/22 18:59 06:59 18:59 Output Total 400 Balance -400 Weight 83.915 kg Output: Urine 400 Other: Voiding Method Toilet Toilet # Voids 15 # Bowel Movements 1 - Labs CBC & Chem 7: 01/10/22 07:22 01/10/22 07:22 Labs: Abnormal Lab Results - Last 24 Hours (Table) 01/10/22 01/10/22 Range/Units 07:22 07:22 WBC 11.7 H (3.8-10.6) k/uL RBC 4.15 L (4.30-5.90) m/uL Hgb 12.8 L (13.0-17.5) gm/dL Potassium 3.1 L (3.5-5.1) mmol/L Creatinine 1.31 H (0.66-1.25) mg/dL Calcium 8.0 L (8.4-10.2) mg/dL
[2022-01-10] MEDS: amLODIPine 5 MG TAB PO SCH (21:03)
[2022-01-10] MEDS: TAMSULOSIN 0.4 MG CAP.ER.24H PO SCH (21:03)
[2022-01-11] MEDS: PIPERACILLIN-TAZOBACTAM 3.375 GM in SODIUM CHLORIDE 0.9% 100 ML IVPB SCH ×3 (04:53→21:35)
[2022-01-11 05:06] LABS: HCT 41.5 % (39.0-53.0); HGB 12.8 gm/dL (13.0-17.5); MCH 29.5 pg (25.0-35.0); MCHC 30.8 g/dL (31.0-37.0); MCV 95.9 fL (80.0-100.0); Mean Platelet Volume 8.1; Platelet Count 420 k/uL (150-450); RBC 4.33 m/uL (4.30-5.90); RDW 13.8 % (11.5-15.5); WBC 12.6 k/uL (3.8-10.6)
[2022-01-11 05:20] LABS: African American GFR (CKD) 71 (>60 ml/min/1.73 sqM); Anion Gap 8 mmol/L; Blood Urea Nitrogen 16 mg/dL (9-20); Calcium 8.1 mg/dL (8.4-10.2); Carbon Dioxide 28 mmol/L (22-30); Chloride 104 mmol/L (98-107); Glucose 109 mg/dL (74-99); Non-African American GFR(CKD) 61 (>60 ml/min/1.73 sqM); Phosphorus 3.1 mg/dL (2.5-4.5); Potassium 3.6 mmol/L (3.5-5.1); Sodium 140 mmol/L (137-145)
[2022-01-11] MEDS: ACETAMINOPHEN TAB 500 MG TAB PO SCH ×4 (05:48→23:37)
[2022-01-11] MEDS: PANTOPRAZOLE 40 MG TABLET PO SCH (09:23)
[2022-01-11] MEDS: GABAPENTIN 300 MG CAP PO SCH ×3 (09:23→21:34)
[2022-01-11] MEDS: ENOXAPARIN 40 MG/0.4 ML SYRINGE SQ SCH (09:24)
[2022-01-11] MEDS: NICOTINE 14MG/24HR PATCH TRANSDERM SCH (09:24)
[2022-01-11] MEDS: FLUCONAZOLE 100 MG TAB PO SCH (09:24)
--- NOTE | 2022-01-11 14:12 | P.PN ---
Subjective Progress Note Date: 01/11/22 CHIEF COMPLAINT: Perforated diverticulitis HISTORY OF PRESENT ILLNESS: Patient admitted with perforated diverticulitis. Patient rates his pain about 1 out of 10. He reports that he is feeling better today. He is tolerating diet. Denies any nausea vomiting. He is having looser bowel movements. No diarrhea. Afebrile. Patient is on room air. White count did go up from 11.7-12.6 Hgb 12.8 platelets 420 sodium is 140 potassium 3.6 creatinine is down from 1.31-1.25 phosphorus 3.1 PHYSICAL EXAM: VITAL SIGNS: Reviewed GENERAL: Well-developed in no acute distress. HEENT: No sclera icterus. Extraocular movements grossly intact. Moist buccal mucosa. Head is atraumatic, normocephalic. Hears conversational speech. No nasal drainage. NECK: Supple without lymphadenopathy. CHEST: Non-labored respirations and equal bilateral excursions. CARDIOVASCULAR: Palpable 2+ radial pulses. ABDOMEN: Soft. Nondistended. No signs of peritonitis. Minimal discomfort with palpation of the suprapubic area MUSCULOSKELETAL: No clubbing or cyanosis. NEUROLOGIC: No focal or lateralizing signs. Cranial nerves II through XII grossly intact. PSYCH: Appropriate affect. Alert and oriented to person, place and time. SKIN: Well perfused. Good skin turgor. ASSESSMENT: 1. Acute sigmoid diverticulitis with perforation 2. Leukocytosis 3. Nicotine dependence 4. History of peripheral arterial disease with stent and on Plavix at home 5. Hypertension 6. Hyperlipidemia 7. Atelectasis 8. Elevated creatinine due to dehydration has improved 9. Fluid overload 10. Hypokalemia resolved PLAN: -Discussed with patient about possible discharge today. Unfortunately infusion company for IV antibiotics is not available until Friday. -Continue conservative management -Continue low fiber diet -Consult dietitian for education for diverticular diet -Antibiotics per ID service. They are recommending IV antibiotics at discharge -Discussed smoking cessation -Continue to hold Plavix for possible surgical intervention -DVT prophylaxis Lovenox Physician Pathology Assistant note has been reviewed by physician. Signing provider agrees with the documented findings, assessment, and plan of care. CHIEF COMPLAINT: Perforated diverticulitis HISTORY OF PRESENT ILLNESS: The patient is a 61 year old male admitted for perforated diverticulitis. He tolerated low fiber diet. He reports no need for smoking. "I'm scared to go home," as he is unsure how to manage his antibiotics. REVIEW OF ORGAN SYSTEMS: No fevers or chills. No nausea or vomiting. No chest pain. PHYSICAL EXAM: VITALS: Reviewed CONSTITUTIONAL: Well developed and in no acute distress. EYES: Conjuctivae without sclera icterus. Extraocular movements grossly intact. HEAD, EARS, NOSE, THROAT: Moist buccal mucosa. Head is atraumatic, normocephalic. Hears conversational speech. Poor dentition. RESPIRATORY: Non-labored respirations and equal bilateral excursions. CARDIOVASCULAR: Palpable 2+ radial pulses. ABDOMEN: No peritonitis. Minimal tenderness lower abdomen MUSCULOSKELETAL: No clubbing cyanosis or edema. SKIN: Warm and well perfused with good skin turgor. NEUROLOGIC: Cranial nerves II through XII grossly intact. No focal or lateralizing signs. PSYCH: Appropriate affect. Alert and oriented to person, place and time. Displays appropriate insight. CLINCAL LABS: Reviewed. WBC 12.6 down from 17.7. ASSESSMENT: 1. Perforated sigmoid diverticulitis 2. Leukocytosis 3. History of colon polyp 4. Tobacco abuse disorder 5. Hypertensive heart disease 6. Peripheral vascular occlusive disease 7. Elevated creatinine due to dehydration PLAN: 1. May resume plavix as he is clinically improving 2. Await home antibiotic management 3. Discharge pending home antibiotics Objective - Vital Signs Vital signs: Vital Signs Temp 98.2 F 01/11/22 05:47 Pulse 76 01/11/22 07:10 Resp 18 01/11/22 07:10 BP 105/45 01/11/22 05:47 Pulse Ox 95 01/11/22 05:47 FiO2 Intake & Output 01/10/22 01/11/22 01/11/22 18:59 06:59 18:59 Output Total 400 Balance -400 Weight 83.915 kg 83.915 kg Output: Urine 400 Other: Voiding Method Toilet Toilet Toilet # Voids 5 # Bowel Movements 1 - Labs CBC & Chem 7: 01/11/22 04:32 01/11/22 04:32 Labs: Abnormal Lab Results - Last 24 Hours (Table) 01/11/22 01/11/22 Range/Units 04:32 04:32 WBC 12.6 H (3.8-10.6) k/uL Hgb 12.8 L (13.0-17.5) gm/dL MCHC 30.8 L (31.0-37.0) g/dL Glucose 109 H (74-99) mg/dL Calcium 8.1 L (8.4-10.2) mg/dL
--- NOTE | 2022-01-11 14:15 | P.PN ---
Subjective Progress Note Date: 01/11/22 Principal diagnosis: Abdominal pain Patient is a 61-year-old male with hypertension, hyperlipidemia, peripheral vascular disease with stenting, BPH, diverticulosis, and nicotine dependence who presented to the emergency department with abdominal pain. Found to have diverticulitis with microperforation. He was started on IV antibiotics with Flagyl and Unasyn and admitted under Gen. surgery team and we have been consulted for continued medical management throughout hospitalization. 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 Is given with Lasix 80 mg IV push 1. Patient seen and examined at bedside. Denies difficulty breathing. No chest pain or palpitations. His pain has improved. Reports passing gas. He has received a PICC line and will receive extended antibiotic therapy. Afebrile. Objective - Vital Signs Vital signs: Vital Signs Temp 98.2 F 01/11/22 05:47 Pulse 76 01/11/22 07:10 Resp 18 01/11/22 07:10 BP 105/45 01/11/22 05:47 Pulse Ox 95 01/11/22 05:47 FiO2 Intake & Output 01/10/22 01/11/22 01/11/22 18:59 06:59 18:59 Output Total 400 Balance -400 Weight 83.915 kg 83.915 kg Output: Urine 400 Other: Voiding Method Toilet Toilet Toilet # Voids 5 # Bowel Movements 1 - Exam Constitutional: No acute distress, on room air HEENT: Pupils equally reactive to light, atraumatic, normocephalic. Lungs: Clear to auscultation bilaterally, no wheezing, no crackles Cardiovascular: RRR, S1-S2 normal, no murmur, no peripheral edema Abdominal: Soft, mild tenderness to palpation on LLQ, no guarding, rebound or rigidity Extremities: No cyanosis or clubbing Neuro: No focal neurological signs alert - Labs CBC & Chem 7: 01/11/22 04:32 01/11/22 04:32 Labs: Abnormal Lab Results - Last 24 Hours (Table) 01/11/22 01/11/22 Range/Units 04:32 04:32 WBC 12.6 H (3.8-10.6) k/uL Hgb 12.8 L (13.0-17.5) gm/dL MCHC 30.8 L (31.0-37.0) g/dL Glucose 109 H (74-99) mg/dL Calcium 8.1 L (8.4-10.2) mg/dL Assessment and Plan Assessment: Acute sigmoid diverticulitis with perforation -General surgery is managing diverticulitis. Repeat CT with submucosal abscess -Hold Plavix and aspirin until further cleared by general surgery team to resume -Maintain IV fluid hydration -Continue PPI with Protonix 40 mg IVP daily -ID recs appreciated: zosyn, diflucan, X 2 weeks on discharge, PICC line in place -Pain control, antiemetics Flash pulmonary edema secondary to fluid overload -Resolved, patient saturating 95% in room air -Patient had an echocardiogram this admission which showed a preserved ejection fraction but mild LVH. Hyperchloremic metabolic acidosis, resolved Xeroderma of scalp - moisturizing shampoo after discharge. Hypertension - Continue amlodipine. BP is at goal Hyperlipidemia -On Statin Peripheral vascular disease with previous stenting BPH -On Flomax. Nicotine dependence - Counseled about smoking cessation, nicotine patch
[2022-01-11] MEDS: amLODIPine 5 MG TAB PO SCH (21:35)
[2022-01-11] MEDS: TAMSULOSIN 0.4 MG CAP.ER.24H PO SCH (21:35)
[2022-01-11] MEDS ORDERED: NON FORMULARY DRUG (Tadalafil [Cialis] 10 MG Tablet) PO PRN (23:58)
[2022-01-12] MEDS: PIPERACILLIN-TAZOBACTAM 3.375 GM in SODIUM CHLORIDE 0.9% 100 ML IVPB SCH ×3 (04:06→21:57)
[2022-01-12] MEDS: ACETAMINOPHEN TAB 500 MG TAB PO SCH ×3 (05:49→17:27)
[2022-01-12 09:06] LABS: Basophils # (A) 0.12 X 10*3/uL (0.00-0.10); Basophils % (A) 1.2 %; Eosinophils # (A) 0.35 X 10*3/uL (0.04-0.35); Eosinophils % (A) 3.4 %; HCT 37.8 % (39.6-50.0); HGB 12.3 g/dL (13.0-17.0); Immature Grans, Automated 1.8 %; Lymphocytes # (A) 2.49 X 10*3/uL (0.90-5.00); Lymphocytes % (A) 24.2 %; MCH 30.1 pg (27.0-32.0); MCHC 32.5 g/dL (32.0-37.0); MCV 92.4 fL (80.0-97.0); Mean Platelet Volume 10.4 fL (9.5-12.2); Monocytes # (A) 0.97 X 10*3/uL (0.20-1.00); Monocytes % (A) 9.4 %; NRBC Per 100 WBC 0 /100 WBCS (0.0-0.0); Neutrophils # (A) 6.17 X 10*3/uL (1.80-7.70); Platelet Count 447 X 10*3/uL (140-440); RBC 4.09 X 10*6/uL (4.40-5.60); RDW 14.4 % (11.5-14.5); WBC 10.28 X 10*3/uL (4.50-10.00)
[2022-01-12] MEDS: TESTOSTERONE TOPICAL SCH (09:18)
[2022-01-12] MEDS: PANTOPRAZOLE 40 MG TABLET PO SCH (09:26)
[2022-01-12] MEDS: NICOTINE 14MG/24HR PATCH TRANSDERM SCH (09:27)
[2022-01-12] MEDS: GABAPENTIN 300 MG CAP PO SCH ×3 (09:27→21:58)
[2022-01-12] MEDS: FLUCONAZOLE 100 MG TAB PO SCH (09:27)
[2022-01-12] MEDS: ENOXAPARIN 40 MG/0.4 ML SYRINGE SQ SCH (09:27)
--- NOTE | 2022-01-12 13:59 | P.PN ---
Subjective Progress Note Date: 01/12/22 CHIEF COMPLAINT: Perforated diverticulitis HISTORY OF PRESENT ILLNESS: The patient is a 61 year old male admitted for perforated diverticulitis. He denies any abdominal pain this morning. He is tolerating a low fiber diet. At this time, pending home healthcare for IV antibiotics. REVIEW OF ORGAN SYSTEMS: No fevers or chills. No nausea or vomiting. No chest pain. PHYSICAL EXAM: VITALS: Reviewed CONSTITUTIONAL: Well developed and in no acute distress. EYES: Conjuctivae without sclera icterus. Extraocular movements grossly intact. HEAD, EARS, NOSE, THROAT: Moist buccal mucosa. Head is atraumatic, normocephalic. Hears conversational speech. Poor dentition. RESPIRATORY: Non-labored respirations and equal bilateral excursions. CARDIOVASCULAR: Palpable 2+ radial pulses. ABDOMEN: No peritonitis. Nontender. MUSCULOSKELETAL: No clubbing cyanosis or edema. SKIN: Warm and well perfused with good skin turgor. NEUROLOGIC: Cranial nerves II through XII grossly intact. No focal or late ralizing signs. PSYCH: Appropriate affect. Alert and oriented to person, place and time. Displays appropriate insight. CLINCAL LABS: Reviewed. WBC down from 21.6 on admission to 10.2. Hemoglobin 12.3. ASSESSMENT: 1. Perforated sigmoid diverticulitis 2. Leukocytosis 3. History of colon polyp 4. Tobacco abuse disorder 5. Hypertensive heart disease 6. Peripheral vascular occlusive disease 7. Elevated creatinine due to dehydration PLAN: 1. Plavix resumed. 2. Repeat CT of the abdomen and pelvis described for complicated perforated diverticulitis Objective - Vital Signs Vital signs: Vital Signs Temp 98.7 F 01/12/22 08:00 Pulse 73 01/12/22 08:00 Resp 18 01/12/22 08:15 BP 114/64 01/12/22 08:00 Pulse Ox 98 01/12/22 08:00 FiO2 Intake & Output 01/11/22 01/12/22 01/12/22 18:59 06:59 18:59 Intake Total 450 100 Output Total 400 Balance 50 100 Weight 83.915 kg Intake: Intake, IV Titration 100 100 Amount Piperacillin-Tazobactam 3 100 100 .375 gm In Sodium Chloride 0.9% 100 ml @ 25 mls/hr IVPB Q8H [facility] Rx#: [id number] Oral 350 Output: Urine 400 Other: Voiding Method Toilet Toilet Toilet # Voids 3 - Labs CBC & Chem 7: 01/12/22 05:23 01/11/22 04:32 Labs: Abnormal Lab Results - Last 24 Hours (Table) 01/12/22 Range/Units 05:23 WBC 10.28 H (4.50-10.00) X 10*3/uL RBC 4.09 L (4.40-5.60) X 10*6/uL Hgb 12.3 L (13.0-17.0) g/dL Hct 37.8 L (39.6-50.0) % Plt Count 447 H (140-440) X 10*3/uL Immature Gran # 0.18 H (0.00-0.04) X 10*3/uL Basophils # 0.12 H (0.00-0.10) X 10*3/uL
--- NOTE | 2022-01-12 14:09 | P.PN ---
Subjective Progress Note Date: 01/12/22 Principal diagnosis: Abdominal pain Patient is a 61-year-old male with hypertension, hyperlipidemia, peripheral vascular disease with stenting, BPH, diverticulosis, and nicotine dependence who presented to the emergency department with abdominal pain. Found to have diverticulitis with microperforation. He was started on IV antibiotics with F lagyl and Unasyn and admitted under Gen. surgery team and we have been consulted for continued medical management throughout hospitalization. 01/12/2022. Patient denies any new complaints at this time no nausea vomiting fever chills chest pain or shortness of breath. He is currently on room air. He is not having any further abdominal discomfort at this time. He is tolerating an oral diet. He is awaiting IV antibiotic arrangement Objective - Vital Signs Vital signs: Vital Signs Temp 98.7 F 01/12/22 08:00 Pulse 73 01/12/22 08:00 Resp 18 01/12/22 08:15 BP 114/64 01/12/22 08:00 Pulse Ox 98 01/12/22 08:00 FiO2 Intake & Output 01/11/22 01/12/22 01/12/22 18:59 06:59 18:59 Intake Total 450 100 Output Total 400 Balance 50 100 Weight 83.915 kg Intake: Intake, IV Titration 100 100 Amount Piperacillin-Tazobactam 3 100 100 .375 gm In Sodium Chloride 0.9% 100 ml @ 25 mls/hr IVPB Q8H [facility] Rx#: [id number] Oral 350 Output: Urine 400 Other: Voiding Method Toilet Toilet Toilet # Voids 3 - Exam Constitutional: No acute distress, on room air HEENT: Pupils equally reactive to light, atraumatic, normocephalic. Lungs: Clear to auscultation bilaterally, no wheezing, no crackles Cardiovascular: RRR, S1-S2 normal, no murmur, no peripheral edema Abdominal: Soft, mild tenderness to palpation on LLQ, no guarding, rebound or rigidity Extremities: No cyanosis or clubbing Neuro: No focal neurological signs alert - Labs CBC & Chem 7: 01/12/22 05:23 01/11/22 04:32 Labs: Abnormal Lab Results - Last 24 Hours (Table) 01/12/22 Range/Units 05: WBC 10.28 H (4.50-10.00) X 10*3/uL RBC 4.09 L (4.40-5.60) X 10*6/uL Hgb 12.3 L (13.0-17.0) g/dL Hct 37.8 L (39.6-50.0) % Plt Count 447 H (140-440) X 10*3/uL Immature Gran # 0.18 H (0.00-0.04) X 10*3/uL Basophils # 0.12 H (0.00-0.10) X 10*3/uL Assessment and Plan (1) Abdominal pain Current Visit: Yes Status: Acute Code(s): R10.9 - UNSPECIFIED ABDOMINAL PAIN SNOMED Code(s): 96838374 Plan: Acute sigmoid diverticulitis with perforation -General surgery is managing diverticulitis. Repeat CT scheduled per surgical team. At this time conservative management -Plavix has been resumed by a general surgical team -Maintain IV fluid hydration -Continue Protonix -ID recs appreciated: zosyn, diflucan, X 2 weeks on discharge, PICC line in place -Pain control, antiemetics Flash pulmonary edema secondary to fluid overload -Resolved, patient saturating 95% in room air -Patient had an echocardiogram this admission which showed a preserved ejection fraction but mild LVH. Hyperchloremic metabolic acidosis, resolved Xeroderma of scalp - moisturizing shampoo after discharge. Hypertension - Continue amlodipine. BP is at goal Hyperlipidemia -On Statin Peripheral vascular disease with previous stenting BPH -On Flomax. Nicotine dependence - Counseled about smoking cessation, nicotine patch Disposition: Patient awaiting IV antibiotic arrangement per case management team. She will need 2 weeks outpatient IV antibiotics of Zosyn and Diflucan
--- NOTE | 2022-01-12 21:17 | P.PN ---
Subjective Progress Note Date: 01/10/22 Principal diagnosis: Leukocytosis Patient is a 61-year-old male presented to the hospital with abdominal pain has been diagnosed with a perforated diverticulitis with an abscess noticed to have slight worsening of his white count. On today's evaluation that is 01/10/2022, the patient remains to be afebrile, the patient abdominal pain is currently controlled, the patient denies any chest pain or shortness of breath or cough and no nausea no vomiting did have some loose stools Objective - Vital Signs Vital signs: Vital Signs Temp 98.0 F 01/10/22 07:46 Pulse 71 01/10/22 07:46 Resp 21 01/10/22 07:46 BP 135/59 01/10/22 07:46 Pulse Ox 94 L 01/10/22 07:46 FiO2 Intake & Output 01/09/22 01/10/22 01/10/22 18:59 06:59 18:59 Output Total 400 Balance -400 Output: Urine 400 Other: Voiding Method Toilet # Voids 15 # Bowel Movements 1 - Exam GENERAL DESCRIPTION: A middle-age male lying in bed in no distress RESPIRATORY SYSTEM: Unlabored breathing , decreased breath sounds at bases HEART: S1 S2 regular rate and rhythm , ABDOMEN: Soft , mild tenderness EXTREMITIES: No edema feet - Labs CBC & Chem 7: 01/12/22 05:23 01/11/22 04:32 Labs: Abnormal Lab Results - Last 24 Hours (Table) 01/10/22 01/10/22 Range/Units 07:22 07:22 WBC 11.7 H (3.8-10.6) k/uL RBC 4.15 L (4.30-5.90) m/uL Hgb 12.8 L (13.0-17.5) gm/dL Potassium 3.1 L (3.5-5.1) mmol/L Creatinine 1.31 H (0.66-1.25) mg/dL Calcium 8.0 L (8.4-10.2) mg/dL Assessment and Plan (1) Diverticulitis of colon with perforation Current Visit: Yes Status: Acute Code(s): K57.20 - DVTRCLI OF LG INT W PERFORATION AND ABSCESS W/O BLEEDING SNOMED Code(s): 71293176 Plan: 1patient with a leukocytosis in this patient presented to hospital with abdominal pain and has been noticed to have perforated sigmoid diverticulitis with a small abscess now with evidence of worsening of the white count and rebound tenderness concern for possible worsening of the abscess as no other obvious focus of infection. 2repeat CAT scan did show significant amount of free fluid and submural abscess 3patient is on a clinical improvement and white count is down to 11.7, patient to continue with IV Zosyn along with oral Diflucan Time with Patient: Less than 30
--- NOTE | 2022-01-12 21:18 | P.PN ---
Subjective Progress Note Date: 01/11/22 Principal diagnosis: Leukocytosis Patient is a 61-year-old male presented to the hospital with abdominal pain has been diagnosed with a perforated diverticulitis with an abscess noticed to have slight worsening of his white count. On today's evaluation that is 01/11/2022, the patient continues to be afebrile, the patient abdominal pain is currently controlled, the patient denies any chest pain or shortness of breath or cough and no nausea no vomiting and no worsening diarrhea Objective - Vital Signs Vital signs: Vital Signs Temp 98.2 F 01/11/22 05:47 Pulse 76 01/11/22 07:10 Resp 18 01/11/22 07:10 BP 105/45 01/11/22 05:47 Pulse Ox 95 01/11/22 05:47 FiO2 Intake & Output 01/10/22 01/11/22 01/11/22 18:59 06:59 18:59 Output Total 400 Balance -400 Weight 83.915 kg Output: Urine 400 Other: Voiding Method Toilet Toilet Toilet # Voids 5 # Bowel Movements 1 - Exam GENERAL DESCRIPTION: A middle-age male lying in bed in no distress RESPIRATORY SYSTEM: Unlabored breathing , decreased breath sounds at bases HEART: S1 S2 regular rate and rhythm , ABDOMEN: Soft , mild tenderness EXTREMITIES: No edema feet - Labs CBC & Chem 7: 01/12/22 05:23 01/11/22 04:32 Labs: Abnormal Lab Results - Last 24 Hours (Table) 01/11/22 01/11/22 Range/Units 04:32 04:32 WBC 12.6 H (3.8-10.6) k/uL Hgb 12.8 L (13.0-17.5) gm/dL MCHC 30.8 L (31.0-37.0) g/dL Glucose 109 H (74-99) mg/dL Calcium 8.1 L (8.4-10.2) mg/dL Assessment and Plan (1) Diverticulitis of colon with perforation Current Visit: Yes Status: Acute Code(s): K57.20 - DVTRCLI OF LG INT W PERFORATION AND ABSCESS W/O BLEEDING SNOMED Code(s): 01035760 Plan: 1patient with a leukocytosis in this patient presented to hospital with abdominal pain and has been noticed to have perforated sigmoid diverticulitis with a small abscess now with evidence of worsening of the white count and rebound tenderness concern for possible worsening of the abscess as no other ob vious focus of infection. 2repeat CAT scan did show significant amount of free fluid and submural abscess 3patient is on a clinical improvement and white count is mildly elevated at 12.7 today,, patient to continue with IV Zosyn along with oral Diflucan, patient is currently waiting for placement Time with Patient: Less than 30
--- NOTE | 2022-01-12 21:19 | P.PN ---
Subjective Progress Note Date: 01/12/22 Principal diagnosis: Leukocytosis Patient is a 61-year-old male presented to the hospital with abdominal pain has been diagnosed with a perforated diverticulitis with an abscess noticed to have slight worsening of his white count. On today's evaluation that is 01/12/2022, the patient denies any fever or chills, the patient did have mild lower abdominal pain, the patient denies any chest pain or shortness of breath or cough and no nausea no vomiting and no worsening diarrhea Objective - Vital Signs Vital signs: Vital Signs Temp 98.3 F 01/12/22 14:00 Pulse 70 01/12/22 14:00 Resp 18 01/12/22 08:15 BP 126/69 01/12/22 14:00 Pulse Ox 96 01/12/22 14:00 FiO2 Intake & Output 01/12/22 01/12/22 01/13/22 06:59 18:59 06:59 Intake Total 100 Output Total 400 Balance -300 Intake: Intake, IV Titration 100 Amount Piperacillin-Tazobactam 3 100 .375 gm In Sodium Chloride 0.9% 100 ml @ 25 mls/hr IVPB Q8H [facility] Rx#: [id number] Output: Urine 400 Other: Voiding Method Toilet Toilet - Exam GENERAL DESCRIPTION: A middle-age male lying in bed in no distress RESPIRATORY SYSTEM: Unlabored breathing , decreased breath sounds at bases HEART: S1 S2 regular rate and rhythm , ABDOMEN: Soft , mild tenderness EXTREMITIES: No edema feet - Labs CBC & Chem 7: 01/12/22 05:23 01/11/22 04:32 Labs: Abnormal Lab Results - Last 24 Hours (Table) 01/12/22 Range/Units 05:23 WBC 10.28 H (4.50-10.00) X 10*3/uL RBC 4.09 L (4.40-5.60) X 10*6/uL Hgb 12.3 L (13.0-17.0) g/dL Hct 37.8 L (39.6-50.0) % Plt Count 447 H (140-440) X 10*3/uL Immature Gran # 0.18 H (0.00-0.04) X 10*3/uL Basophils # 0.12 H (0.00-0.10) X 10*3/uL Assessment and Plan (1) Diverticulitis of colon with perforation Current Visit: Yes Status: Acute Code(s): K57.20 - DVTRCLI OF LG INT W PERFORATION AND ABSCESS W/O BLEEDING SNOMED Code(s): 80984473 Plan: 1patient with a leukocytosis in this patient presented to hospital with abdominal pain and has been noticed to have perforated sigmoid diverticulitis with a small abscess now with evidence of worsening of the white count and rebound tenderness concern for possible worsening of the abscess as no other obvious focus of infection. 2repeat CAT scan did show significant amount of free fluid and submural abscess 3patient is on a clinical improvement and white count has normalized today,, patient to continue with IV Zosyn along with oral Diflucan, waiting for outpatient IV antibiotic arrangement Time with Patient: Less than 30
[2022-01-12] MEDS: TAMSULOSIN 0.4 MG CAP.ER.24H PO SCH (21:58)
[2022-01-12] MEDS: amLODIPine 5 MG TAB PO SCH (21:58)
[2022-01-12] MEDS: ASPIRIN 81 MG PO SCH (21:58)
[2022-01-12] MEDS: CLOPIDOGREL 75 MG TAB PO SCH (21:58)
[2022-01-13] MEDS: ACETAMINOPHEN TAB 500 MG TAB PO SCH ×4 (03:13→17:17)
[2022-01-13] MEDS: PIPERACILLIN-TAZOBACTAM 3.375 GM in SODIUM CHLORIDE 0.9% 100 ML IVPB SCH ×3 (04:57→21:17)
[2022-01-13] MEDS: TESTOSTERONE TOPICAL SCH (06:57)
[2022-01-13] MEDS: FLUCONAZOLE 100 MG TAB PO SCH (09:30)
[2022-01-13] MEDS: PANTOPRAZOLE 40 MG TABLET PO SCH (09:31)
[2022-01-13] MEDS: GABAPENTIN 300 MG CAP PO SCH ×3 (09:31→21:18)
[2022-01-13] MEDS: NICOTINE 14MG/24HR PATCH TRANSDERM SCH (09:31)
[2022-01-13] MEDS: ENOXAPARIN 40 MG/0.4 ML SYRINGE SQ SCH (09:31)
--- NOTE | 2022-01-13 13:13 | P.PN ---
Subjective Progress Note Date: 01/13/22 Principal diagnosis: Abdominal pain Patient is a 61-year-old male with hypertension, hyperlipidemia, peripheral vascular disease with stenting, BPH, diverticulosis, and nicotine dependence who presented to the emergency department with abdominal pain. Found to have diverticulitis with microperforation. He was started on IV antibiotics with F lagyl and Unasyn and admitted under Gen. surgery team and we have been consulted for continued medical management throughout hospitalization. 01/13/2022. Patient denies any new complaints at this time no nausea vomiting fever chills chest pain or shortness of breath. He is currently on room air. He is not having any further abdominal discomfort at this time. He is tolerating an oral diet. He is awaiting IV antibiotic arrangement. Case management working on this process. Objective - Vital Signs Vital signs: Vital Signs Temp 98.4 F 01/13/22 07:50 Pulse 76 01/13/22 07:50 Resp 18 01/13/22 08:00 BP 124/64 01/13/22 07:50 Pulse Ox 97 01/13/22 07:50 FiO2 Intake & Output 01/12/22 01/13/22 01/13/22 18:59 06:59 18:59 Intake Total 100 Output Total 400 400 Balance -300 -400 Intake: Intake, IV Titration 100 Amount Piperacillin-Tazobactam 3 100 .375 gm In Sodium Chloride 0.9% 100 ml @ 25 mls/hr IVPB Q8H [facility] Rx#: [id number] Output: Urine 400 400 Other: Voiding Method Toilet Toilet Toilet - Exam Constitutional: No acute distress, on room air HEENT: Pupils equally reactive to light, atraumatic, normocephalic. Lungs: Clear to auscultation bilaterally, no wheezing, no crackles Cardiovascular: RRR, S1-S2 normal, no murmur, no peripheral edema Abdominal: Soft, mild tenderness to palpation on LLQ, no guarding, rebound or rigidity Extremities: No cyanosis or clubbing Neuro: No focal neurological signs alert - Labs CBC & Chem 7: 01/12/22 05:23 01/11/22 04:32 Assessment and Plan (1) Abdominal pain Current Visit: Yes Status: Acute Code(s): R10.9 - UNSPECIFIED ABDOMINAL PAIN SNOMED Code(s): 77295452 Plan: Acute sigmoid diverticulitis with perforation -General surgery is managing diverticulitis. No surgical plans at this time continued medical management with IV antibiotics -Plavix has been resumed by a general surgical team -Continue Protonix -ID recs appreciated: zosyn, diflucan, X 2 weeks on discharge, PICC line in place -Pain control, antiemetics Flash pulmonary edema secondary to fluid overload -Resolved, patient saturating 95% in room air -Patient had an echocardiogram this admission which showed a preserved ejection fraction but mild LVH. Hyperchloremic metabolic acidosis, resolved Xeroderma of scalp - moisturizing shampoo after discharge. Hypertension - Continue amlodipine. BP is at goal Hyperlipidemia -On Statin Peripheral vascular disease with previous stenting BPH -On Flomax. Nicotine dependence - Counseled about smoking cessation, nicotine patch Disposition: Patient awaiting IV antibiotic arrangement per case management team. She will need 2 weeks outpatient IV antibiotics of Zosyn and Diflucan
[2022-01-13 14:09] LABS: Basophils # (A) 0.1 k/uL (0-0.2); Basophils % (A) 1 %; Eosinophils # (A) 0.4 k/uL (0-0.7); Eosinophils % (A) 4 %; HCT 38.8 % (39.0-53.0); HGB 12.6 gm/dL (13.0-17.5); Lymphocytes # (A) 2.3 k/uL (1.0-4.8); Lymphocytes % (A) 23 %; MCH 31.2 pg (25.0-35.0); MCHC 32.3 g/dL (31.0-37.0); MCV 96.4 fL (80.0-100.0); Mean Platelet Volume 7.5; Monocytes # (A) 0.5 k/uL (0-1.0); Monocytes % (A) 5 %; Neutrophils # (A) 6.1 k/uL (1.3-7.7); Neutrophils % (A) 64 %; Platelet Count 513 k/uL (150-450); RBC 4.03 m/uL (4.30-5.90); RDW 14.6 % (11.5-15.5); WBC 9.6 k/uL (3.8-10.6)
[2022-01-13 14:25] LABS: African American GFR (CKD) 76 (>60 ml/min/1.73 sqM); Anion Gap 4 mmol/L; Blood Urea Nitrogen 13 mg/dL (9-20); Calcium 8.1 mg/dL (8.4-10.2); Carbon Dioxide 25 mmol/L (22-30); Chloride 109 mmol/L (98-107); Glucose 98 mg/dL (74-99); Non-African American GFR(CKD) 65 (>60 ml/min/1.73 sqM); Potassium 4.2 mmol/L (3.5-5.1); Sodium 138 mmol/L (137-145)
--- NOTE | 2022-01-13 17:45 | P.PN ---
Subjective Progress Note Date: 01/13/22 CHIEF COMPLAINT: Perforated diverticulitis HISTORY OF PRESENT ILLNESS: The patient is a 61 year old male admitted for perforated diverticulitis. He denies abdominal pain. No fevers or chills. He is having bowel movements. Patient is seen with infectious disease provider. REVIEW OF ORGAN SYSTEMS: No fevers or chills. No nausea or vomiting. No chest pain. PHYSICAL EXAM: VITALS: Reviewed CONSTITUTIONAL: Well developed and in no acute distress. EYES: Conjuctivae without sclera icterus. Extraocular movements grossly intact. HEAD, EARS, NOSE, THROAT: Moist buccal mucosa. Head is atraumatic, normocephalic. Hears conversational speech. Poor dentition. RESPIRATORY: Non-labored respirations and equal bilateral excursions. CARDIOVASCULAR: Palpable 2+ radial pulses. ABDOMEN: No peritonitis. Nontender. MUSCULOSKELETAL: No clubbing cyanosis or edema. SKIN: Warm and well perfused with good skin turgor. NEUROLOGIC: Cranial nerves II through XII grossly intact. No focal or lateralizing signs. PSYCH: Appropriate affect. Alert and oriented to person, place and time. Displays appropriate insight. CLINCAL LABS: Reviewed. WBC down from 21.6 on admission now normal at 9.6. Platelets elevated over 500 ASSESSMENT: 1. Perforated sigmoid diverticulitis 2. Leukocytosis 3. History of colon polyp 4. Tobacco abuse disorder 5. Hypertensive heart disease 6. Peripheral vascular occlusive disease 7. Elevated creatinine due to dehydration 8. Thrombocytosis PLAN: 1. Will repeat CT of the abdomen and pelvis for follow-up on perforated diverticulitis 2. Continue IV antibiotics Objective - Vital Signs Vital signs: Vital Signs Temp 98.6 F 01/13/22 14:00 Pulse 71 01/13/22 14:00 Resp 18 01/13/22 08:00 BP 134/75 01/13/22 14:00 Pulse Ox 98 01/13/22 14:00 FiO2 Intake & Output 01/12/22 01/13/22 01/13/22 18:59 06:59 18:59 Intake Total 100 Output Total 400 400 Balance -300 -400 Intake: Intake, IV Titration 100 Amount Piperacillin-Tazobactam 3 100 .375 gm In Sodium Chloride 0.9% 100 ml @ 25 mls/hr IVPB Q8H [facility] Rx#: [id number] Output: Urine 400 400 Other: Voiding Method Toilet Toilet Toilet - Labs CBC & Chem 7: 01/13/22 13:52 01/13/22 13:52 Labs: Abnormal Lab Results - Last 24 Hours (Table) 01/13/22 01/13/22 Range/Units 13:52 13:52 RBC 4.03 L (4.30-5.90) m/uL Hgb 12.6 L (13.0-17.5) gm/dL Hct 38.8 L (39.0-53.0) % Plt Count 513 H (150-450) k/uL Chloride 109 H (98-107) mmol/L Calcium 8.1 L (8.4-10.2) mg/dL
[2022-01-13] MEDS: amLODIPine 5 MG TAB PO SCH (21:17)
[2022-01-13] MEDS: ASPIRIN 81 MG PO SCH (21:17)
[2022-01-13] MEDS: CLOPIDOGREL 75 MG TAB PO SCH (21:17)
[2022-01-13] MEDS: TAMSULOSIN 0.4 MG CAP.ER.24H PO SCH (21:17)
[2022-01-14] MEDS: ACETAMINOPHEN TAB 500 MG TAB PO SCH ×4 (02:17→15:26)
[2022-01-14] MEDS: PIPERACILLIN-TAZOBACTAM 3.375 GM in SODIUM CHLORIDE 0.9% 100 ML IVPB SCH ×3 (03:35→20:36)
[2022-01-14 04:33] LABS: Basophils # (A) 0.1 k/uL (0-0.2); Basophils % (A) 1 %; Eosinophils # (A) 0.3 k/uL (0-0.7); Eosinophils % (A) 3 %; HCT 39.7 % (39.0-53.0); HGB 12.6 gm/dL (13.0-17.5); Lymphocytes # (A) 1.8 k/uL (1.0-4.8); Lymphocytes % (A) 21 %; MCH 30.5 pg (25.0-35.0); MCHC 31.7 g/dL (31.0-37.0); MCV 96.3 fL (80.0-100.0); Mean Platelet Volume 8.9; Monocytes # (A) 0.8 k/uL (0-1.0); Monocytes % (A) 9 %; Neutrophils # (A) 5.6 k/uL (1.3-7.7); Neutrophils % (A) 64 %; Platelet Count 540 k/uL (150-450); RBC 4.12 m/uL (4.30-5.90); RDW 14.7 % (11.5-15.5); WBC 8.7 k/uL (3.8-10.6)
[2022-01-14 05:02] LABS: African American GFR (CKD) 64 (>60 ml/min/1.73 sqM); Anion Gap 6 mmol/L; Blood Urea Nitrogen 12 mg/dL (9-20); Calcium 8.4 mg/dL (8.4-10.2); Carbon Dioxide 24 mmol/L (22-30); Chloride 108 mmol/L (98-107); Glucose 115 mg/dL (74-99); Non-African American GFR(CKD) 55 (>60 ml/min/1.73 sqM); Potassium 4.5 mmol/L (3.5-5.1); Sodium 138 mmol/L (137-145)
[2022-01-14] MEDS: TESTOSTERONE TOPICAL SCH (07:15)
[2022-01-14] MEDS: GABAPENTIN 300 MG CAP PO SCH ×3 (07:39→20:36)
[2022-01-14] MEDS: FLUCONAZOLE 100 MG TAB PO SCH (07:39)
[2022-01-14] MEDS: PANTOPRAZOLE 40 MG TABLET PO SCH (07:39)
[2022-01-14] MEDS: NICOTINE 14MG/24HR PATCH TRANSDERM SCH (07:40)
[2022-01-14] MEDS: ENOXAPARIN 40 MG/0.4 ML SYRINGE SQ SCH (07:40)
[2022-01-14] MEDS: IOPAMIDOL CONTRAST (ORAL USE) VIAL PO PRN ×2 (08:42→09:27)
--- NOTE | 2022-01-14 11:11 | P.PN ---
Subjective Patient was examined at bedside today accompanying any worsening symptomatology. Currently rates the pain a 1-210 states that he did have a small bowel movement. PICC line placed on the left upper extremity. Anticipate a repeat computed tomography scan today. Objective - Vital Signs Vital signs: Vital Signs Temp 98.4 F 01/14/22 07:32 Pulse 79 01/14/22 07:32 Resp 18 01/14/22 07:32 BP 111/56 01/14/22 07:32 Pulse Ox 97 01/14/22 07:32 FiO2 Intake & Output 01/13/22 01/14/22 01/14/22 18:59 06:59 18:59 Output Total 800 400 400 Balance -800 -400 -400 Output: Urine 800 400 400 Other: Voiding Method Toilet Toilet # Voids 3 - Exam Constitutional: No acute distress, on room air HEENT: Pupils equally reactive to light, atraumatic, normocephalic. Lungs: Clear to auscultation bilaterally, no wheezing, no crackles Cardiovascular: RRR, S1-S2 normal, no murmur, no peripheral edema Abdominal: Soft, mild tenderness to palpation on LLQ, no guarding, rebound or rigidity Extremities: No cyanosis or clubbing Neuro: No focal neurological signs alert - Labs CBC & Chem 7: 01/14/22 03:12 01/14/22 03:12 Labs: Abnormal Lab Results - Last 24 Hours (Table) 01/13/22 01/13/22 01/14/22 Range/Units 13:52 13:52 03:12 RBC 4.03 L 4.12 L (4.30-5.90) m/uL Hgb 12.6 L 12.6 L (13.0-17.5) gm/dL Hct 38.8 L (39.0-53.0) % Plt Count 513 H 540 H (150-450) k/uL Chloride 109 H (98-107) mmol/L Creatinine (0.66-1.25) mg/dL Glucose (74-99) mg/dL Calcium 8.1 L (8.4-10.2) mg/dL 01/14/22 Range/Units 03:12 RBC (4.30-5.90) m/uL Hgb (13.0-17.5) gm/dL Hct (39.0-53.0) % Plt Count (150-450) k/uL Chloride 108 H (98-107) mmol/L Creatinine 1.36 H (0.66-1.25) mg/dL Glucose 115 H (74-99) mg/dL Calcium (8.4-10.2) mg/dL Assessment and Plan Assessment: Acute sigmoid diverticulitis with perforation -General surgery is managing diverticulitis. No surgical plans at this time continued medical management with IV antibiotics -Plavix has been resumed by a general surgical team -Continue Protonix -ID recs appreciated: zosyn, diflucan, X 2 weeks on discharge, PICC line in place -Pain control, antiemetics Flash pulmonary edema secondary to fluid overload -Resolved, patient saturating 95% in room air -Patient had an echocardiogram this admission which showed a preserved ejection fraction but mild LVH. Hyperchloremic metabolic acidosis, resolved Xeroderma of scalp - moisturizing shampoo after discharge. Hypertension - Continue amlodipine. BP is at goal Hyperlipidemia -On Statin Peripheral vascular disease with previous stenting BPH -On Flomax. Nicotine dependence - Counseled about smoking cessation, nicotine patch Disposition: Patient awaiting IV antibiotic arrangement per case management team. She will need 2 weeks outpatient IV antibiotics of Zosyn and Diflucan
--- NOTE | 2022-01-14 12:22 | CT ---
EXAMINATION TYPE: CT abdomen pelvis w con DATE OF EXAM: 01/14/2022 COMPARISON: 01/06/2022 INDICATION: Diverticulitis, perforation DLP: 1113.3 mGycm, Automated exposure control for dose reduction was used. CONTRAST: 100 ml mL of Isovue 300. Study performed with Oral Contrast TECHNIQUE: Axial images were obtained from above the diaphragm to the pubic rami in the axial plane a t 5 mm thick sections. Reconstructed images are reviewed on the computer in the coronal plane. FINDINGS: Limited CT sections are obtained the lung bases. There is a small left pleural effusion. Very minima l right pleural effusion is present.. CT ABDOMEN: Liver: Normal Spleen: Normal Pancreas: Normal Adrenal glands: The adrenal glands are normal. Gallbladder: Normal Kidneys: No masses are evident. No hydronephrosis is present. No cysts are present. Delayed images were obtained through the kidneys, which remain unremarkable. Aorta: Vascular calcification is within the aorta. Inferior vena cava: Normal. CT PELVIS: Multiple scattered diverticuli to the sigmoid colon. There are some inflammatory changes a djacent to distal small bowel loop and diverticuli compatible with acute diverticulitis there appears to be a large loculated air collection. Findings could be compatible with acute diverticulitis. No a bscess formation or free air is identified. Remaining Loops of bowel within the abdomen and pelvis are normal. There are loops of bowel which are incompletely distended or lack oral contrast limiting their evaluation. Appendix: Normal as visualized. Urinary bladder: Decompressed with limited evaluation. Genitourinary structures: Prostate is prominent and contains some calcification Osseous structures: No suspicious lytic or sclerotic lesions. IMPRESSIONS: 1. Scattered diverticuli with adjacent inflammatory changes in the distal sigmoid colon compatible w ith acute diverticulitis. There is a large loculated air collection without thick wall or air-fluid l evels within this inflammatory change. No free air is evident. Findings are similar to improved from comparison. 2. Small bilateral pleural effusions.
[2022-01-14] MEDS: amLODIPine 5 MG TAB PO SCH (20:36)
[2022-01-14] MEDS: CLOPIDOGREL 75 MG TAB PO SCH (20:36)
[2022-01-14] MEDS: TAMSULOSIN 0.4 MG CAP.ER.24H PO SCH (20:36)
[2022-01-14] MEDS: ASPIRIN 81 MG PO SCH (20:36)
[2022-01-15] MEDS: ACETAMINOPHEN TAB 500 MG TAB PO SCH ×4 (01:38→17:11)
[2022-01-15] MEDS: PIPERACILLIN-TAZOBACTAM 3.375 GM in SODIUM CHLORIDE 0.9% 100 ML IVPB SCH ×3 (04:08→19:30)
[2022-01-15] MEDS: FLUCONAZOLE 100 MG TAB PO SCH (07:34)
[2022-01-15] MEDS: NICOTINE 14MG/24HR PATCH TRANSDERM SCH (07:35)
[2022-01-15] MEDS: PANTOPRAZOLE 40 MG TABLET PO SCH (07:35)
[2022-01-15] MEDS: GABAPENTIN 300 MG CAP PO SCH ×2 (07:35→17:59)
[2022-01-15] MEDS: ENOXAPARIN 40 MG/0.4 ML SYRINGE SQ SCH (07:35)
[2022-01-15] MEDS: TESTOSTERONE TOPICAL SCH (07:36)
--- NOTE | 2022-01-15 08:02 | P.PN ---
Subjective Progress Note Date: 01/14/22 CHIEF COMPLAINT: Perforated diverticulitis HISTORY OF PRESENT ILLNESS: The patient is a 61 year old male admitted for perforated diverticulitis. He is laying comfortably. No abdominal pain. Tolerating a low fiber diet. REVIEW OF ORGAN SYSTEMS: No fevers or chills. No nausea or vomiting. No chest pain. PHYSICAL EXAM: VITALS: Reviewed CONSTITUTIONAL: Well developed and in no acute distress. EYES: Conjuctivae without sclera icterus. Extraocular movements grossly intact. HEAD, EARS, NOSE, THROAT: Moist buccal mucosa. Head is atraumatic, normocephalic. Hears conversational speech. Poor dentition. RESPIRATORY: Non-labored respirations and equal bilateral excursions. CARDIOVASCULAR: Palpable 2+ radial pulses. ABDOMEN: No peritonitis. Nontender. MUSCULOSKELETAL: No clubbing cyanosis or edema. SKIN: Warm and well perfused with good skin turgor. NEUROLOGIC: Cranial nerves II through XII grossly intact. No focal or lateralizing signs. PSYCH: Appropriate affect. Alert and oriented to person, place and time. Displays appropriate insight. CLINCAL LABS: Reviewed. WBC down from 21.6 on admission now normal at 8.7. Hemoglobin 12.6. Platelets elevated at 540 STUDIES: CT of the abdomen and pelvis and the pedicle review demonstrates moderate resolution of prior perforated diverticulitis. No fluid collection. This is my independent interpretation. RADIOLOGY: Report reviewed demonstrating no pneumoperitoneum. ASSESSMENT: 1. Perforated sigmoid diverticulitis 2. Leukocytosis 3. History of colon polyp 4. Tobacco abuse disorder 5. Hypertensive heart disease 6. Peripheral vascular occlusive disease 7. Elevated creatinine due to dehydration 8. Thrombocytosis PLAN: 1. Discharge pending home infusion management. 2. Follow-up as outpatient Objective - Vital Signs Vital signs: Vital Signs Temp 98.2 F 01/15/22 02:00 Pulse 78 01/15/22 02:00 Resp 15 01/15/22 02:00 BP 137/69 01/15/22 02:00 Pulse Ox 99 01/15/22 02:00 FiO2 Intake & Output 01/14/22 01/15/22 01/15/22 18:59 06:59 18:59 Intake Total 550 Output Total 700 900 Balance -700 -350 Intake: Intake, IV Titration 200 Amount Piperacillin-Tazobactam 3 200 .375 gm In Sodium Chloride 0.9% 100 ml @ 25 mls/hr IVPB Q8H [facility] Rx#: [id number] Oral 350 Output: Urine 700 900 Other: Voiding Method Toilet Toilet # Voids 2 # Bowel Movements 0 - Labs CBC & Chem 7: 01/14/22 03:12 01/14/22 03:12
[2022-01-15 08:57] VITALS: RESP 18; TEMP 98.5
--- NOTE | 2022-01-15 14:18 | P.DS ---
Providers Date of admission: 01/03/22 01:44 Expected date of discharge: 01/15/22 Attending physician: Sandra Turcios Consults: 01/03/22 01:44 Consult Physician Routine Consulting Provider: Maxim Vargas Consult Reason/Comments: med manage Do you want consulting provider notified?: Yes 01/03/22 09:58 Consult Physician Routine Consulting Provider: Brady Friend Consult Reason/Comments: cardiac risk assessment Do you want consulting provider notified?: Yes 01/06/22 15:35 Consult Physician Routine Consulting Provider: Tevin King Consult Reason/Comments: Antibiotic management diverticular abscess Do you want consulting provider notified?: Yes, Notify in am Primary care physician: [facility] Hospital Course: Discharge diagnosis 1. Perforated sigmoid diverticulitis 2. Leukocytosis 3. History of colon polyp 4. Tobacco abuse disorder 5. Hypertensive heart disease 6. Peripheral vascular occlusive disease 7. Elevated creatinine due to dehydration 8. Thrombocytosis Hospital course This is a 61-year-old male who presented with abdominal pain he was found to have evidence of a perforated diverticulitis. He was treated conservatively with antibiotics. His diet was advanced slowly. He was seen by infectious disease they are recommending to continue IV Zosyn for 2 weeks and also oral Diflucan for 2 weeks. Patient has had PICC line placed to continue IV antibiotics at home. Patient's repeat CAT scan had demonstrated moderate resolution of prior perforated diverticulitis. No fluid collection. Patient has had improvement in his abdominal pain since admission. He's afebrile. His white count has normalized. He is tolerating diet. He is having bowel movements and flatus. He is up and ambulating. He is stable for discharge. Physician It Sales Representative note has been reviewed by physician. Signing provider agrees with the documented findings, assessment, and plan of care. Patient Condition at Discharge: Stable Plan - Discharge Summary Discharge Rx Participant: Yes New Discharge Prescriptions: Continue Aspirin EC [Ecotrin Low Dose] 81 mg PO HS Tamsulosin [Flomax] 0.4 mg PO HS Clopidogrel [Plavix] 75 mg PO HS Testosterone [Androgel 1% Gel Pump] 2 applic TOPICAL DAILY Nicotine 14Mg/24Hr Patch [Habitrol] 1 patch TRANSDERM DAILY Tadalafil [Cialis] 10 mg PO DAILY PRN PRN Reason: ED amLODIPine [Norvasc] 5 mg PO HS Discontinued lisinopriL [Zestril] 20 mg PO HS Cholecalciferol [Vitamin D3 (25 Mcg = 1000 Iu)] 25 mcg PO HS Atorvastatin [Lipitor] 40 mg PO HS Discharge Medication List Aspirin EC [Ecotrin Low Dose] 81 mg PO HS 02/09/20 [History] Clopidogrel [Plavix] 75 mg PO HS 02/09/20 [History] Tamsulosin [Flomax] 0.4 mg PO HS 02/09/20 [History] Nicotine 14Mg/24Hr Patch [Habitrol] 1 patch TRANSDERM DAILY 01/03/22 [History] Tadalafil [Cialis] 10 mg PO DAILY PRN 01/03/22 [History] Testosterone [Androgel 1% Gel Pump] 2 applic TOPICAL DAILY 01/03/22 [History] amLODIPine [Norvasc] 5 mg PO HS 01/03/22 [History] Acetaminophen Tab [Tylenol] 1,000 mg PO Q6HR PRN #30 tablet 01/15/22 [Rx] Fluconazole [Diflucan] 200 mg PO DAILY #14 tab 01/15/22 [Rx] Piperacillin-Tazobactam [Zosyn] 3.375 gm IVPB Q8H 14 Days each 01/15/22 [Rx] Follow up Appointment(s)/Referral(s): [facility] [REFERRING] - As Needed Sandra Turcios MD [STAFF PHYSICIAN] - 01/22/22 Channing Osorio PAC [REFERRING] - 01/17/22 3:00 [facility] [NON-STAFF] - 01/16/22 Patient Instructions/Handouts: Diverticulitis (DC) Activity/Diet/Wound Care/Special Instructions: Antibiotics as prescribed per infectious disease Please call [facility] when pt discharges so they can deliver to home: #[phone]. Home care and IV antibiotic arranged through [facility]. Discharge Disposition: HOME WITH HOME HEALTH SERVICES
[2022-01-15 15:26] VITALS: BP 102/49; PULSE 69
== END 2022-01-15 20:27 | disposition home health service (06) | DRG 391 ==
LOC: EC 20:31 → 4SSUR 01-03 01:44
PROVIDERS: ADMIT Surgery Plastic and Reconstructive Surgery; ATTEND Surgery Plastic and Reconstructive Surgery
PROC: B518YZA Fluoroscopy of Superior Vena Cava using Other Contrast, Guidance (ICD-10-PCS; 2022-01-08)
PROC: B548ZZA Ultrasonography of Superior Vena Cava, Guidance (ICD-10-PCS; 2022-01-08)
PROC: 02HV33Z Insertion of Infusion Device into Superior Vena Cava, Percutaneous Approach (ICD-10-PCS; principal; 2022-01-08 10:35)
DX: K57.20 Diverticulitis of large intestine with perforation and abscess without bleeding (principal); N17.0 Acute kidney failure with tubular necrosis; J81.0 Acute pulmonary edema; E87.2 Acidosis; J98.11 Atelectasis; K59.00 Constipation, unspecified; E78.5 Hyperlipidemia, unspecified; E86.0 Dehydration; N40.0 Benign prostatic hyperplasia without lower urinary tract symptoms; E87.6 Hypokalemia; D75.839 Thrombocytosis, unspecified; F17.210 Nicotine dependence, cigarettes, uncomplicated; I13.10 Hypertensive heart and chronic kidney disease without heart failure, with stage 1 through stage 4 chronic kidney disease, or unspecified chronic kidney disease; I73.9 Peripheral vascular disease, unspecified; N18.2 Chronic kidney disease, stage 2 (mild); Z86.010 Personal history of colon polyps; Z79.82 Long term (current) use of aspirin; Z79.02 Long term (current) use of antithrombotics/antiplatelets; Z79.899 Other long term (current) drug therapy
CPT/HCPCS: 36415; 36573; 71045; 71046; 74018; 74019; 74176; 74177; 80048; 80053; 82150; 83690; 83735; 83880; 84100; 85025; 85027; 87040; 93005; 93306

== ENCOUNTER 2022-01-17 11:34 | Emergency (ER) | payer MEDICARE, OTHER ==
[2022-01-17 11:48] VITALS: BP 121/67; PULSE 92; RESP 20; TEMP 98.2
--- NOTE | 2022-01-17 12:06 | ED ---
General Adult HPI - General Chief complaint: Recheck/Abnormal Lab/Rx Stated complaint: Picc line problems Time Seen by Provider: 01/17/22 11:51 Source: patient Mode of arrival: ambulatory Limitations: no limitations - History of Present Illness Initial comments: Patient is a 62-year-old male presenting for evaluation of occluded PICC line. Patient was discharged from this facility on 01/15 after diverticulitis, he currently has a PICC line for antibiotic use at home. Patient states home nursing was out to show him how to use the PICC line for his antibiotics, he states that last night he and his attempted to give him his dose of antibiotics, however it did not work. He called the home nursing facility who instructed him to report to the ER. He denies any localized pain, redness, swelling, fever, chills, nausea, vomiting, chest pain, shortness of breath, lightheadedness, abdominal pain. - Related Data Home Medications Medication Instructions Recorded Confirmed Aspirin EC [Ecotrin Low Dose] 81 mg PO HS 02/09/20 01/03/22 Clopidogrel [Plavix] 75 mg PO HS 02/09/20 01/03/22 Tamsulosin [Flomax] 0.4 mg PO HS 02/09/20 01/03/22 Nicotine 14Mg/24Hr Patch [Habitrol] 1 patch TRANSDERM DAILY 01/03/22 01/03/22 Tadalafil [Cialis] 10 mg PO DAILY PRN 01/03/22 01/03/22 Testosterone [Androgel 1% Gel Pump] 2 applic TOPICAL DAILY 01/03/22 01/03/22 amLODIPine [Norvasc] 5 mg PO HS 01/03/22 01/03/22 Previous Rx's Medication Instructions Recorded Acetaminophen Tab [Tylenol] 1,000 mg PO Q6HR PRN #30 tablet 01/15/22 Fluconazole [Diflucan] 200 mg PO DAILY #14 tab 01/15/22 Piperacillin-Tazobactam [Zosyn] 3.375 gm IVPB Q8H 14 Days each 01/15/22 Allergies Allergy/AdvReac Type Severity Reaction Status Date / Time No Known Allergies Allergy Verified 01/17/22 11:48 Review of Systems ROS Statement: Those systems with pertinent positive or pertinent negative responses have been documented in the HPI. ROS Other: All systems not noted in ROS Statement are negative. Past Medical History Past Medical History: Hyperlipidemia, Hypertension, Osteoarthritis (OA) Additional Past Medical History / Comment(s): PAD History of Any Multi-Drug Resistant Organisms: None Reported Additional Past Surgical History / Comment(s): PTBA WITH STENT-2016, COLONOSCOPY Past Anesthesia/Blood Transfusion Reactions: No Reported Reaction Past Psychological History: No Psychological Hx Reported Smoking Status: Current every day smoker Past Alcohol Use History: Rare Past Drug Use History: Marijuana - Past Family History Father Family Medical History: Cancer General Exam Limitations: no limitations General appearance: alert, in no apparent distress Head exam: Present: atraumatic, normocephalic, normal inspection Eye exam: Present: normal appearance, EOMI. Absent: scleral icterus Neck exam: Present: normal inspection Respiratory exam: Present: normal lung sounds bilaterally. Absent: respiratory distress, wheezes, rales, rhonchi, stridor Cardiovascular Exam: Present: regular rate, normal rhythm, normal heart sounds. Absent: systolic murmur, diastolic murmur, rubs, gallop, clicks Extremities exam: Present: normal inspection (PICC line is in place on the left upper extremity), full ROM, normal capillary refill. Absent: tenderness, joint swelling Neurological exam: Present: alert, oriented X3, CN II-XII intact Psychiatric exam: Present: normal affect, normal mood Skin exam: Present: warm, dry, intact, normal color. Absent: rash Course Vital Signs 01/17/22 11:47 Temperature 98.2 F Pulse Rate 92 Respiratory 20 Rate Blood Pressure 121/67 O2 Sat by Pulse 96 Oximetry Medical Decision Making - Medical Decision Making Patient is a 62-year-old male presenting with chief complaint of occluded PICC line. Patient states that last night was the first time his and him tried to administer his dose of antibiotics, however was unsuccessful. When he called the home nursing facility they instructed him to report to the ER on examination there is no redness, swelling, tenderness to the area. PICC line does not appear to be damaged. Nurse replaced cap And was able to flush and get good blood return through the PICC line. She spoke with home nursing facility to arrange further at home instruction on using PICC line for patient. Follow- up with PCP in 2-3 days. Report back to ER if any worsening symptoms. Follow- up with home nursing for further instruction on using PICC line at home. Answered all questions and discussed return parameters alarm symptoms. Patient conveyed verbal understanding and agreed to the plan. I discussed this case with my attending Dr. Meyer. Disposition Clinical Impression: Occluded PICC line Disposition: HOME SELF-CARE Condition: Good Instructions (If sedation given, give patient instructions): How to Care for Your PICC (Peripherally Inserted Central Catheter) (ED), How to Flush Your PICC (Peripherally Inserted Central Catheter) (ED) Additional Instructions: Report back to ER with any worsening symptoms. Follow up with home health care to ensure proper understanding of caring for and using your PICC line. Follow-up with your PCP in 2-3 days. Is patient prescribed a controlled substance at d/c from ED?: No Referrals: [facility],Clinic [Primary Care Provider] - 1-2 days Time of Disposition: 12:06
== END 2022-01-17 12:20 | disposition home or self-care (01) ==
LOC: EC 11:34
DX: Z45.2 Encounter for adjustment and management of vascular access device (principal); E78.5 Hyperlipidemia, unspecified; I10 Essential (primary) hypertension; M19.90 Unspecified osteoarthritis, unspecified site; F17.200 Nicotine dependence, unspecified, uncomplicated; Z72.89 Other problems related to lifestyle; F12.90 Cannabis use, unspecified, uncomplicated
CPT/HCPCS: 99283

== ENCOUNTER → 2022-01-31 | Outpatient (CLI) | payer MEDICARE, OTHER ==
--- NOTE | 2022-02-01 22:27 | CT ---
EXAMINATION TYPE: CT abdomen pelvis w con CT DLP: 1223.6 mGycm, Automated exposure control for dose reduction was used. DATE OF EXAM: 01/31/2022 7:30 PM COMPARISON: CT abdomen pelvis most recent from 01/14/2022 . CLINICAL INDICATION:Male, 62 years old with history of K65.1 Intra-abdominal abscess; Intra-abdominal abscess TECHNIQUE: Standard CT of the abdomen and pelvis following the administration of 100 cc of Isovue 3 00 IV contrast material and oral contrast. Coronal and sagittal reformats were performed. FINDINGS: LOWER CHEST: Unremarkable ABDOMEN LIVER: Unremarkable GALLBLADDER AND BILE DUCTS: Unremarkable. PANCREAS: Unremarkable. SPLEEN: Unremarkable. ADRENAL GLANDS: Unremarkable. KIDNEYS AND URETERS: No evidence of hydronephrosis or renal calculus. The ureters are unremarkable. PELVIS BLADDER: Unremarkable REPRODUCTIVE: Unremarkable. ABDOMEN & PELVIS STOMACH AND BOWEL: Fat stranding changes as seen on sigmoid colon surrounding multiple colonic divert icula. There is circumferentially thickened sigmoid colon wall measuring up to 6 mm. A few foci of ga s is felt to be outside the lumen of the sigmoid colon best appreciated on series 13 image 49. These foci of gas extends towards loop of small bowel ileum. No evidence of oral contrast extravasation. Th ere is oral contrast seen within the rectum Given lack of organizing fluid is felt to represent micro perforation. No evidence of bowel obstruction. PERITONEUM: No evidence of pneumoperitoneum or free fluid. VASCULATURE: No evidence of aortic aneurysm. Atherosclerosis of the arterial vasculature is present. MUSCULOSKELETAL: No acute osseous abnormalities. LYMPH NODES: No gross evidence for lymphadenopathy. SOFT TISSUE/ABDOMINAL WALL: Unremarkable IMPRESSION: Sigmoid colonic diverticulitis/colitis with a few foci of gas extending towards a loop of small bowel ileum. Given lack of organizing fluid collection or contrast outside the lumen of the bowel, these l ikely represents microperforation. No evidence of organizing fluid collection suggest abscess. Attent ion on clinical follow-up and consider short-term follow-up CT abdomen pelvis with IV and oral contra st to ensure resolution.
== END | disposition home or self-care (01) ==
LOC: RADCTMAIN 16:08
PROVIDERS: ATTEND Internal Medicine Infectious Disease
DX: K65.1 Peritoneal abscess (principal)
CPT/HCPCS: 82565; 84520; 74177; 36415; Q9967 ×2

== ENCOUNTER → 2022-04-15 | Outpatient (CLI) | payer OTHER ==
--- NOTE | 2022-04-16 06:52 | CT ---
EXAMINATION TYPE: CT abdomen pelvis w con DATE OF EXAM: 04/15/2022 COMPARISON: CT abdomen and pelvis January 31, 2022 HISTORY: diverticulitis f/u CT DLP: 869.80 mGycm, Automated Exposure Control for Dose Reduction was Utilized. CONTRAST: CT scan of the abdomen and pelvis is performed with oral and with IV Contrast, patient injected with 80 mL of Isovue 300. FINDINGS: LUNG BASES: No significant abnormality is appreciated. LIVER/GB: No significant abnormality is appreciated. PANCREAS: No significant abnormality is seen. SPLEEN: No significant abnormality is seen. ADRENALS: No significant abnormality is seen. KIDNEYS: No significant abnormality is seen. BOWEL: Oral contrast reaches level of the mid left colon on current study making evaluation of distal colon suboptimal similar to most recent prior CT. Persistent moderate to severe wall thickening in t he sigmoid colon with colonic diverticulosis. No significant surrounding fat stranding current study. PROSTATE/SEMINAL VESICLES: Enlarged prostate consistent with BPH redemonstrated. LYMPH NODES: No greater than 1cm abdominal or pelvic lymph nodes are appreciated. OSSEOUS STRUCTURES: No significant abnormality is seen. OTHER: Moderate peripheral plaque of the aorta extends into branch vessels. IMPRESSION: Distal colonic diverticulosis redemonstrated. Persistent concentric wall thickening could reflect product of chronic diverticulitis. Underlying neoplasm cannot be excluded and should be dev elated with recent colonoscopy if has been performed in last 3 years. No significant fat stranding an d current study to suggest acute diverticulitis. No free air. No well-formed fluid collection or absc ess identified.
== END | disposition home or self-care (01) ==
LOC: RADCTMAIN 16:58
PROVIDERS: ATTEND Surgery Plastic and Reconstructive Surgery
DX: K57.20 Diverticulitis of large intestine with perforation and abscess without bleeding (principal)
CPT/HCPCS: 82565; 84520; 74177; 36415; Q9967

== ENCOUNTER 2022-05-06 07:29 | Day surgery (SDC) | payer OTHER ==
[2022-05-02 15:34] VITALS: BMI 29.9
[~2022-05-06 07:29] MED LIST changes: -LACTATED RINGERS 1,000 ML IV SCH; +LIDOCAINE 1% (10MG/ML) FOR IV START INTRADERMA PRN
[2022-05-06 08:07] VITALS: TEMP 96.9
[2022-05-06] MEDS: LACTATED RINGERS 1,000 ML IV SCH ×2 (08:15→08:38)
--- NOTE | 2022-05-06 08:20 | P.GSHP ---
History of Present Illness H&P Date: 05/06/22 CHIEF COMPLAINT: Colon screen HISTORY OF PRESENT ILLNESS: The patient is a 62-year-old male who presents for colon screen. Lower endoscopy was offered for further evaluation and management. PAST MEDICAL HISTORY: Please see list. PAST SURGICAL HISTORY: Please see list. MEDICATIONS: Please see list. ALLERGIES: Please see list. SOCIAL HISTORY: No illicit drug use FAMILY HISTORY: No reports of Crohn disease or ulcerative colitis. REVIEW OF ORGAN SYSTEMS: CONSTITUTIONAL: No reports of fevers or chills. PHYSICAL EXAM: VITAL SIGNS: Stable GENERAL: Well-developed pleasant in no acute distress. HEENT: No scleral icterus. Extraocular movements grossly intact. Moist buccal mucosa. NECK: Supple without lymphadenopathy. CHEST: Unlabored respirations. Equal bilateral excursions. CARDIOVASCULAR: Regular rate and rhythm. Distal 2+ pulses. ABDOMEN: Soft, nontender, nondistended. MUSCULOSKELETAL: No clubbing, cyanosis, or edema. ASSESSMENT: 1. Colon screen. PLAN: 1. Recommend proceeding with a lower endoscopy Past Medical History Past Medical History: Hyperlipidemia, Hypertension, Osteoarthritis (OA), Prostate Disorder, Vascular Disorder Additional Past Medical History / Comment(s): PAD. Enlarged prostate. Hx Diverticulitis 01/06. History of Any Multi-Drug Resistant Organisms: None Reported Additional Past Surgical History / Comment(s): PTBA WITH STENT X1-2015, COLONOSCOPY. Past Anesthesia/Blood Transfusion Reactions: No Reported Reaction Past Psychological History: No Psychological Hx Reported Smoking Status: Current every day smoker Past Alcohol Use History: Rare Additional Past Alcohol Use History / Comment(s): STARTED SMOKING AT AGE 15 SMOKES 1 PPD. Past Drug Use History: Marijuana Additional Drug Use History / Comment(s): Marijuana use daily. Aware no use 24 hrs prior to procedure. - Past Family History Father Family Medical History: Cancer Medications and Allergies Home Medications Medication Instructions Recorded Confirmed Type Aspirin EC [Ecotrin Low Dose] 81 mg PO HS 02/09/20 05/06/22 History Clopidogrel [Plavix] 75 mg PO HS 02/09/20 05/06/22 History Tamsulosin [Flomax] 0.4 mg PO HS 02/09/20 05/06/22 History amLODIPine [Norvasc] 5 mg PO HS 01/03/22 05/06/22 History Allergies Allergy/AdvReac Type Severity Reaction Status Date / Time No Known Allergies Allergy Verified 05/06/22 08:07 Surgical - Exam Vital Signs Temp Pulse Resp BP Pulse Ox 96.9 F L 91 18 152/71 97 05/06/22 08:05 05/06/22 08:05 05/06/22 08:05 05/06/22 08:05 05/06/22 08:05
[2022-05-06] MEDS ORDERED: PROPOFOL 10 MG/ML 20 ML VIAL IV ONE (08:39)
[2022-05-06] MEDS ORDERED: fentaNYL (PF) 50 MCG/ML 2 ML AMP ONE (08:39)
[2022-05-06] MEDS ORDERED: LIDOCAINE 2% INJ 20 MG/ML (2 ML VIAL) ONE (08:39)
[2022-05-06] MEDS ORDERED: MIDAZOLAM 2 MG/2 ML VIAL ONE (08:39)
--- NOTE | 2022-05-06 09:42 | P.PCN ---
Date of Procedure: 05/06/22 Description of Procedure: PREOPERATIVE DIAGNOSIS: Diverticulitis POSTOPERATIVE DIAGNOSIS: Tubular adenoma ascending colon Tubular adenoma sigmoid colon Sigmoid diverticulosis Internal hemorrhoids, grade 3 OPERATION: Colonoscopy to the ileocecal valve and appendiceal orifice, cecum Colonoscopy with hot snare polypectomy SURGEON: Sandra Turcios MD. ANESTHESIA: MAC. INDICATIONS: The patient is an 62-year-old male who presents Brecurrent diverticulitis. enefits and risks were described and informed consent was obtained. DESCRIPTION OF PROCEDURE: The patient had undergone Sutab prep. The patient had been brought into the operating room and laid in the left lateral decubitus position. After adequate intravenous sedation, the rectum was examined with 2% lidocaine jelly. The prostate was unremarkable. No external hemorrhoids were encountered. The rectal tone was within normal limits. No lesions were palpated in the rectal vault. An Olympus colonoscope was advanced until the cecum, ileocecal valve and appendiceal orifice were clearly viewed. The prep was good. Sigmoid diverticulosis was encountered. Colonic polyps were found and removed. Residual colitis was identified 30 cm from the anal verge to 20 cm from the anal verge. Retroflexion of the scope demonstrated grade 2 internal hemorrhoids without active bleeding or inflammation. The colon was desufflated. The patient had tolerated the procedure well. Withdrawal time was over 6 minutes. FINDINGS: Aronchick preparation quality scale 2 (1-5) Internal hemorrhoids, grade 2 No external hemorrhoids, grade 4. No arteriovenous malformations. Sigmoid diverticulosis with diverticulitis Removal of 2 polyps: - Snare polypectomy 15 cm from the anal verge, 5 mm tubulovillous adenoma polyp. - Snare polypectomy ascending colon, 3 mm flat villous adenoma polyp. RECOMMENDATIONS: Repeat colonoscopy 3 years, 2024 Plan - Discharge Summary Discharge Rx Participant: No New Discharge Prescriptions: Continue Aspirin EC [Ecotrin Low Dose] 81 mg PO HS Tamsulosin [Flomax] 0.4 mg PO HS Clopidogrel [Plavix] 75 mg PO HS amLODIPine [Norvasc] 5 mg PO HS Discharge Medication List Aspirin EC [Ecotrin Low Dose] 81 mg PO HS 02/09/20 [History] Clopidogrel [Plavix] 75 mg PO HS 02/09/20 [History] Tamsulosin [Flomax] 0.4 mg PO HS 02/09/20 [History] amLODIPine [Norvasc] 5 mg PO HS 01/03/22 [History] Follow up Appointment(s)/Referral(s): Sandra Turcios MD [STAFF PHYSICIAN] - 05/21/22 Patient Instructions/Handouts: *Surgery [facility] - (Anesthesia) Endoscopy Discharge Instructions, Colorectal Polyps (GEN), Diverticulitis (GEN), Diverticulitis Diet (DC) Activity/Diet/Wound Care/Special Instructions: Repeat colonoscopy 3 years, 2024 Discharge Disposition: HOME SELF-CARE
[2022-05-06 10:12] VITALS: BP 148/78; PULSE 71; RESP 16
== END 2022-05-06 10:15 | disposition home or self-care (01) ==
LOC: ORWHC2ENDO 07:29
PROVIDERS: ATTEND Surgery Plastic and Reconstructive Surgery
DX: Z12.11 Encounter for screening for malignant neoplasm of colon (principal); D12.2 Benign neoplasm of ascending colon; D12.5 Benign neoplasm of sigmoid colon; K57.32 Diverticulitis of large intestine without perforation or abscess without bleeding; K64.1 Second degree hemorrhoids; E78.5 Hyperlipidemia, unspecified; I10 Essential (primary) hypertension; M19.90 Unspecified osteoarthritis, unspecified site; N40.0 Benign prostatic hyperplasia without lower urinary tract symptoms; F17.210 Nicotine dependence, cigarettes, uncomplicated; F12.90 Cannabis use, unspecified, uncomplicated; Z86.59 Personal history of other mental and behavioral disorders; Z80.9 Family history of malignant neoplasm, unspecified; Z79.82 Long term (current) use of aspirin
CPT/HCPCS: 88305; 45385; J2250; J3010; J2704; J2001

== ENCOUNTER 2023-09-19 11:22 | Emergency (ER) | payer OTHER ==
[2023-09-19] MEDS ORDERED: KETOROLAC 15 MG/ML 1 ML VIAL IM STA (11:55)
--- NOTE | 2023-09-19 12:03 | ED ---
General Adult HPI - General Chief complaint: Extremity Injury, Upper Stated complaint: arm pain Time Seen by Provider: 09/19/23 11:31 Source: patient, RN notes reviewed Mode of arrival: ambulatory Limitations: no limitations - History of Present Illness Initial comments: Patient is a pleasant 63-year-old male presenting to the emergency department with concern for left arm discomfort. Onset of symptoms was a few months ago. Discomfort is positional. Discomfort is somewhat worse in the morning when he wakes up but definitely worse when he lifts his arm. Patient does have history of similar symptoms previously associated with rotator cuff problems however never had procedure for it. Patient states occasionally there is mild discomfort of the right arm with similar symptoms as well. No neck pain. No back pain. No chest pain. No dyspnea. No weakness. Area of discomfort is left shoulder and left deltoid - Related Data Home Medications Medication Instructions Recorded Confirmed Aspirin EC [Ecotrin Low Dose] 81 mg PO HS 02/09/20 05/06/22 Clopidogrel [Plavix] 75 mg PO HS 02/09/20 05/06/22 Tamsulosin [Flomax] 0.4 mg PO HS 02/09/20 05/06/22 amLODIPine [Norvasc] 5 mg PO HS 01/03/22 05/06/22 Previous Rx's Medication Instructions Recorded Cyclobenzaprine [Flexeril] 10 mg PO TID PRN #12 tablet 09/19/23 Ibuprofen [Motrin] 600 mg PO Q6HR PRN #20 tab 09/19/23 Allergies Allergy/AdvReac Type Severity Reaction Status Date / Time No Known Allergies Allergy Verified 09/19/23 11:32 Review of Systems ROS Statement: Those systems with pertinent positive or pertinent negative responses have been documented in the HPI. ROS Other: All systems not noted in ROS Statement are negative. Constitutional: Denies: fever Eyes: Denies: eye pain Respiratory: Denies: dyspnea Cardiovascular: Denies: chest pain Musculoskeletal: Denies: back pain Past Medical History Past Medical History: Hyperlipidemia, Hypertension, Osteoarthritis (OA), Prostate Disorder, Vascular Disorder Additional Past Medical History / Comment(s): PAD. Enlarged prostate. Hx Diverticulitis 01/06. History of Any Multi-Drug Resistant Organisms: None Reported Additional Past Surgical History / Comment(s): PTBA WITH STENT X1-2015, COLONOSCOPY. Past Anesthesia/Blood Transfusion Reactions: No Reported Reaction Past Psychological History: No Psychological Hx Reported Smoking Status: Current every day smoker Past Alcohol Use History: Rare Past Drug Use History: Marijuana - Past Family History Father Family Medical History: Cancer General Exam Limitations: no limitations General appearance: alert, in no apparent distress Head exam: Present: normocephalic Eye exam: Present: normal appearance Neck exam: Present: normal inspection Respiratory exam: Present: normal lung sounds bilaterally. Absent: chest wall tenderness Cardiovascular Exam: Present: regular rate, normal rhythm Expanded Peripheral pulses: 2+: Radial (R), Radial (L), Dorsalis Pedis (R), Dorsalis Pedis (L) GI/Abdominal exam: Present: soft. Absent: tenderness Extremities exam: Present: normal inspection, tenderness (Mild tenderness of the deltoid and shoulder region. Distally the extremity is neurovascular intact. Good strength. Sensation intact.). Absent: pedal edema, calf tenderness Neurological exam: Present: alert. Absent: motor sensory deficit Psychiatric exam: Present: normal affect, normal mood Skin exam: Present: normal color Course Vital Signs 09/19/23 11:30 Temperature 98.2 F Pulse Rate 98 Respiratory 18 Rate Blood Pressure 133/73 O2 Sat by Pulse 99 Oximetry EKG Findings - EKG Results: EKG: interpreted by ERMD, sinus rhythm, normal axis, normal QRS, normal ST/T Medical Decision Making - Medical Decision Making Was pt. sent in by a medical professional or institution (Dr. PA, DIRECTOR CLIENT SERVICES, urgent care, hospital, or long-term...) When possible be specific @ -No Did you speak to anyone other than the patient for history (EMS, parent, family, police, friend...)? What history was obtained from this source @ -No Did you review nursing and triage notes (agree or disagree)? Why? @ -I reviewed and agree with nursing and triage notes Were old charts reviewed (outside hosp., previous admission, EMS record, old EKG, old radiological studies, urgent care reports/EKG's, long-term records)? Report findings @ -No old charts were reviewed Differential Diagnosis (chest pain, altered mental status, abdominal pain women, abdominal pain men, vaginal bleeding, weakness, fever, dyspnea, syncope, headache, dizziness, GI bleed, back pain, seizure, CVA, palpatations, mental health, musculoskeletal)? @ -Differential Musculoskeletal Muscular strain, contusion, ligament sprain, fracture, arthritis, septic arthritis, bursitis, cellulitis, muscle spasm, nerve compression, DVT, arterial occlusion, herpes zoster, electrolyte abnormality, tumor.... This is not meant to be in all inclusive list EKG interpreted by me (3pts min.). @ -As above X-rays interpreted by me (1pt min.). @ -Left shoulder x-ray reveals no acute abnormality CT interpreted by me (1pt min.). @ -None done U/S interpreted by me (1pt. min.). @ -None done What testing was considered but not performed or refused? (CT, X-rays, U/S, labs)? Why? @ -None What meds were considered but not given or refused? Why? @ -None Did you discuss the management of the patient with other professionals (professionals i.e. , PA, DIRECTOR CLIENT SERVICES, lab, RT, psych nurse, social media assistant, drum builder, teacher, licensed loan officer assistant, housing case manager)? Give summary @ -No Was smoking cessation discussed for >3mins.? @ -No Was critical care preformed (if so, how long)? @ -No Were there social determinants of health that impacted care today? How? (Homelessness, low income, unemployed, alcoholism, drug addiction, transportation, low edu. Level, literacy, decrease access to med. care, senior living, rehab)? @ -No Was there de-escalation of care discussed even if they declined (Discuss DNR or withdrawal of care, Hospice)? DNR status @ -No What co-morbidities impacted this encounter? (DM, HTN, Smoking, COPD, CAD, Cancer, CVA, ARF, Chemo, Hep., AIDS, mental health diagnosis, sleep apnea, morbid obesity)? @ -None Was patient admitted / discharged? Hospital course, mention meds given and route, prescriptions, significant lab abnormalities, going to OR and other pertinent info. @ -Patient reevaluated and updated on results and plan. Patient will be discharged with orthopedic follow-up. Prescription sent to pharmacy Undiagnosed new problem with uncertain prognosis? @ -No Drug Therapy requiring intensive monitoring for toxicity (Heparin, Nitro, Insulin, Cardizem)? @ -No Were any procedures done? @ -No Diagnosis/symptom? @ -Shoulder pain Acute, or Chronic, or Acute on Chronic? @ -Acute on chronic Uncomplicated (without systemic symptoms) or Complicated (systemic symptoms)? @ -Default Side effects of treatment? @ -No Exacerbation, Progression, or Severe Exacerbation? @ -No Poses a threat to life or bodily function? How? (Chest pain, [place], [place], pneumonia, PE, COPD, DKA, ARF, appy, cholecystitis, CVA, Diverticulitis, Homicidal, Suicidal, threat to staff... and all critical care pts) @ -No Disposition Clinical Impression: Shoulder pain Disposition: HOME SELF-CARE Condition: Stable Instructions (If sedation given, give patient instructions): Shoulder Pain (ED) Additional Instructions: Prescription sent to pharmacy. Please follow-up with primary care physician in the next day or 2 for recheck. Return for increased pain, weakness, chest pain, worsening or changing symptoms or other concerns. Prescriptions: Cyclobenzaprine [Flexeril] 10 mg PO TID PRN #12 tablet PRN Reason: Pain Ibuprofen [Motrin] 600 mg PO Q6HR PRN #20 tab PRN Reason: Pain Is patient prescribed a controlled substance at d/c from ED?: No Referrals: [facility],Clinic [Primary Care Provider] - 1-2 days Kaylie Almeida DO [Doctor of Osteopathic Medicine] - 1-2 days Time of Disposition: 12:53
[2023-09-19 12:12] VITALS: RESP 18
--- NOTE | 2023-09-19 12:33 | XR ---
EXAMINATION TYPE: XR shoulder complete LT DATE OF EXAM: 09/19/2023 CLINICAL HISTORY: pain COMPARISON: NONE TECHNIQUE: Three views of the left shoulder are obtained. FINDINGS: There is no acute fracture/dislocation evident. The acromioclavicular and glenohumeral afsaneh int spaces appear within normal limits. The visualized ribs are intact and unremarkable. IMPRESSION: 1. There is no acute fracture or dislocation. ICD 10 NO FRACTURE, INITIAL EVALUATION
[2023-09-19 13:40] VITALS: BP 129/76; PULSE 87; TEMP 98.1
== END 2023-09-19 13:31 | disposition home or self-care (01) ==
LOC: EC 11:22
DX: M25.512 Pain in left shoulder (principal); I10 Essential (primary) hypertension; F17.200 Nicotine dependence, unspecified, uncomplicated; F12.90 Cannabis use, unspecified, uncomplicated; Z79.82 Long term (current) use of aspirin
CPT/HCPCS: 93005; 73030; 99283; 96372; J1885

== ENCOUNTER → 2023-09-29 | Outpatient (CLI) | payer OTHER ==
--- NOTE | 2023-09-29 17:24 | US ---
EXAMINATION TYPE: US abdomen limited DATE OF EXAM: 09/29/2023 COMPARISON: Non- CLINICAL INDICATION: Male, 63 years old with history of R74.8 ABNORMAL LEVELS OF OTHER SERUM ENZYMES; Abnormal labs,no pain TECHNIQUE: Multiple sonographic images of the right upper quadrant are obtained. FINDINGS: EXAM MEASUREMENTS: Liver Length: 12.4 cm Gallbladder Wall: 0.2 cm CBD: 0.4 cm Right Kidney: 10.3 x 5.0 x 5.5 cm [employer]IONS MARKET CONSULTANT NOTES:suboptimal due to overlying bowel gas Pancreas: Only a small portion of the pancreatic neck and body are seen. Remainder is obscured by randi wel gas shadowing. Liver: limited visualization Gallbladder: no calculi or wall thickening seen at time of scan Evidence for sonographic Bey's sign: neg CBD: Limited visualization Right Kidney: No hydronephrosis or masses seen IMPRESSION: No gallstones or biliary ductal dilatation.
== END | disposition home or self-care (01) ==
LOC: RADUSWWP 06:44
DX: R74.8 Abnormal levels of other serum enzymes (principal)
CPT/HCPCS: 76705

== ENCOUNTER 2025-01-17 05:04 | Emergency (ER) | payer MEDICARE ==
[2025-01-17 05:56] LABS: Appearance,Urine Clear (Clear); Bilirubin,Urine 1+ (Negative); Blood,Urine Small (Negative); Budding Yeast,Urine Rare /hpf; Color,Urine Yellow; Glucose,Urine (UA) Negative (Negative); Hyaline Casts,Urine 10 /lpf (0-2); Ketones,Urine 2+ (Negative); Leukocyte Esterase,Urine Negative (Negative); Mucus,Urine Moderate /hpf; Nitrite,Urine Negative (Negative); PH, Urine 5.5 (5.0-8.0); Protein,Urine 1+ (Negative); RBC,Urine 3 /hpf (0-5); Specific Gravity,Urine 1.029 (1.001-1.035); WBC,Urine 1 /hpf (0-5)
[2025-01-17] MEDS: PEG 3350 (236 GM/BTL) + LYTES 4,000 ML BOTTLE PO ONE (06:45)
--- NOTE | 2025-01-17 07:23 | ED ---
General Adult HPI - General Chief complaint: Urogenital Stated complaint: prostate pain Time Seen by Provider: 01/17/25 05:12 Source: patient Mode of arrival: ambulatory Limitations: no limitations - History of Present Illness Initial comments: This patient is a 65-year-old man who presents with complaint that he is feeling frequent urge to urinate and also having constipation. The patient states he has not had a bowel movement going on 3 days now. He has not had dayne abdominal pain. He does have suprapubic pressure and urge to urinate. He stat es that when he does go to urinate he only passes a small amount of urine. The patient states he [facility] but has not received results yet. He states that he was supposed to have the results last week but they pushed back his appointment. The patient has not noted fever or chills. No nausea or vomiting. Onset/Timin -: days(s) Location: abdomen Radiation: non-radiation Quality: other (Pressure) Consistency: intermittent Improves with: none Worsens with: none Associated Symptoms: other (Constipation) Treatments Prior to Arrival: none - Related Data Home Medications Medication Instructions Recorded Confirmed Aspirin EC [Ecotrin Low Dose] 81 mg PO DAILY 02/09/20 01/19/25 Tamsulosin [Flomax] 0.4 mg PO BID 02/09/20 01/19/25 Atorvastatin [Lipitor] 40 mg PO DAILY 01/19/25 01/19/25 amLODIPine [Norvasc] 10 mg PO DAILY 01/19/25 01/19/25 carvediloL [Coreg] 3.125 mg PO BID 01/19/25 01/19/25 Previous Rx's Medication Instructions Recorded cefuroxime axetiL [Ceftin] 500 mg PO BID #20 tab 01/21/25 metroNIDAZOLE [Flagyl] 500 mg PO TID #30 tab 01/21/25 Allergies Allergy/AdvReac Type Severity Reaction Status Date / Time No Known Allergies Allergy Verified 01/19/25 11:27 Review of Systems ROS Statement: Those systems with pertinent positive or pertinent negative responses have been documented in the HPI. ROS Other: All systems not noted in ROS Statement are negative. Constitutional: Denies: fever, chills Respiratory: Denies: cough, dyspnea Cardiovascular: Denies: chest pain, palpitations, edema Gastrointestinal: Reports: as per HPI, constipation. Denies: abdominal pain, nausea, vomiting, diarrhea Genitourinary: Reports: frequency. Denies: dysuria, hematuria, discharge, testicular pain Musculoskeletal: Denies: back pain Skin: Denies: rash Neurological: Denies: headache, weakness Past Medical History Past Medical History: Hyperlipidemia, Hypertension, Osteoarthritis (OA), Prostate Disorder, Vascular Disorder Additional Past Medical History / Comment(s): PAD. Enlarged prostate. Hx Diverticulitis 01/06. History of Any Multi-Drug Resistant Organisms: None Reported Additional Past Surgical History / Comment(s): PTBA WITH STENT X1-2016, COLONOSCOPY. Past Anesthesia/Blood Transfusion Reactions: No Reported Reaction Past Psychological History: No Psychological Hx Reported Smoking Status: Current every day smoker Past Alcohol Use History: Rare Past Drug Use History: Marijuana - Past Family History Father Family Medical History: Cancer General Exam Limitations: no limitations General appearance: alert, in no apparent distress Head exam: Present: atraumatic, normocephalic Eye exam: Present: normal appearance. Absent: scleral icterus, conjunctival injection Neck exam: Present: normal inspection Respiratory exam: Present: normal lung sounds bilaterally. Absent: respiratory distress, wheezes, rales, rhonchi, stridor, accessory muscle use Cardiovascular Exam: Present: regular rate (Rate 88 at my exam), normal rhythm, normal heart sounds. Absent: systolic murmur, diastolic murmur, rubs, gallop GI/Abdominal exam: Present: soft. Absent: distended, tenderness, guarding, rebound, rigid, mass Rectal exam: Present: deferred Extremities exam: Present: normal inspection, normal capillary refill. Absent: pedal edema, calf tenderness Back exam: Present: normal inspection. Absent: CVA tenderness (R), CVA tenderness (L) Neurological exam: Present: alert Skin exam: Present: warm, dry, intact, normal color. Absent: rash Course Vital Signs 01/17/25 01/17/25 05:07 07:37 Temperature 98.5 F 98.0 F Pulse Rate 117 H 82 Respiratory 18 20 Rate Blood Pressure 152/72 146/89 O2 Sat by Pulse 98 99 Oximetry Medical Decision Making - Medical Decision Making Patient is 65-year-old man here with frequent urge to urinate and also abdominal symptoms consistent with constipation. The patient does not have postvoid residual. He will take GoLytely at home today. He will return if there is no relief of symptoms or if he is worse in any way. Was pt. sent in by a medical professional or institution ([facility] Cherry, [employer] REPAIRMAN, urgent care, hospital, or jail...) When possible be specific @ -[No] Did you speak to anyone other than the patient for history (EMS, parent, family, police, friend...)? What history was obtained from this source @ -[No] Did you review nursing and triage notes (agree or disagree)? Why? @ -[I reviewed and agree with nursing and triage notes] Were old charts reviewed (outside hosp., previous admission, EMS record, old EKG, old radiological studies, urgent care reports/EKG's, jail records)? Report findings @ -[No old charts were reviewed] Differential Diagnosis (chest pain, altered mental status, abdominal pain women, abdominal pain men, vaginal bleeding, weakness, fever, dyspnea, syncope, h eadache, dizziness, GI bleed, back pain, seizure, CVA, palpatations, mental health, musculoskeletal)? @ -[Differential Abdominal Pain Men: Appendicitis, cholecystitis, diverticulosis, ischemic bowel, pancreatitis, hepatitis, UTI, gastroenteritis, AAA, incarcerated hernia, bowel obstruction, constipation, inflammatory bowel, hepatitis, peptic ulcer disease, splenic infarction, perforated viscus, testicular torsion, this is not meant to be an all-inclusive list EKG interpreted by me (3pts min.). @ -[As above] X-rays interpreted by me (1pt min.). @ -[None done] CT interpreted by me (1pt min.). @ -[None done] U/S interpreted by me (1pt. min.). @ -[None done] What testing was considered but not performed or refused? (CT, X-rays, U/S, labs)? Why? @ -[None] What meds were considered but not given or refused? Why? @ -[None] Did you discuss the management of the patient with other professionals (professionals i.e. S[facility] Cherry, [employer] AND SHOE REPAIRMAN, lab, RT, psych nurse, dialysis social worker, tuckpointer, teacher, ski patrol officer, test case developer)? Give summary @ -[No] Was smoking cessation discussed for >3mins.? @ -[No] Was critical care preformed (if so, how long)? @ -[No] Were there social determinants of health that impacted care today? How? (Homelessness, low income, unemployed, alcoholism, drug addiction, transportation, low edu. Level, literacy, decrease access to med. care, residential, rehab)? @ -[No] Was there de-escalation of care discussed even if they declined (Discuss DNR or withdrawal of care, Hospice)? DNR status @ -[No] What co-morbidities impacted this encounter? (DM, HTN, Smoking, COPD, CAD, Can cer, CVA, ARF, Chemo, Hep., AIDS, mental health diagnosis, sleep apnea, morbid obesity)? @ -[None] Was patient admitted / discharged? Hospital course, mention meds given and route, prescriptions, significant lab abnormalities, going to OR and other pertinent info. @ -[See above Undiagnosed new problem with uncertain prognosis? @ -[No] Drug Therapy requiring intensive monitoring for toxicity (Heparin, Nitro, Insulin, Cardizem)? @ -[No] Were any procedures done? @ -[No] Diagnosis/symptom? @ -[Acute constipation Acute, or Chronic, or Acute on Chronic? @ -[Acute Uncomplicated (without systemic symptoms) or Complicated (systemic symptoms)? @ -[Uncomplicated Side effects of treatment? @ -[No] Exacerbation, Progression, or Severe Exacerbation? @ -[No] Poses a threat to life or bodily function? How? (Chest pain, USA, [place], pneumonia, PE, COPD, DKA, ARF, appy, cholecystitis, CVA, Diverticulitis, Homicidal, Suicidal, threat to staff... and all critical care pts) @ -[No] All treatments are based on ideal body weight as in ED triage - Lab Data Lab Results 01/17/25 Range/Units 05:17 Urine Color Yellow Urine Appearance Clear (Clear) Urine pH 5.5 (5.0-8.0) Ur Specific [place] 1.029 (1.001-1.035) Urine Protein 1+ H (Negative) Urine Glucose (UA) Negative (Negative) Urine Ketones 2+ H (Negative) Urine Blood Small H (Negative) Urine Nitrite Negative (Negative) Urine Bilirubin 1+ H (Negative) Urine Urobilinogen 2.0 (<2.0) mg/dL Ur Leukocyte Esterase Negative (Negative) Urine RBC 3 (0-5) /hpf Urine WBC 1 (0-5) /hpf Hyaline Casts 10 H (0-2) /lpf Urine Mucus Moderate H (None) /hpf Urine Yeast (Budding) Rare H (None) /hpf Disposition Clinical Impression: Constipation Disposition: HOME SELF-CARE Condition: Good Instructions (If sedation given, give patient instructions): Constipation (ED) Is patient prescribed a controlled substance at d/c from ED?: No Referrals: [facility] [Primary Care Provider] - 1-2 days
[2025-01-17 07:39] VITALS: BP 146/89; PULSE 82; RESP 20; TEMP 98
== END 2025-01-17 07:38 | disposition home or self-care (01) ==
LOC: EC 05:04
DX: K59.00 Constipation, unspecified (principal); F17.200 Nicotine dependence, unspecified, uncomplicated
CPT/HCPCS: 51798; 81001; 99284

== ENCOUNTER 2025-01-19 10:03 | Inpatient (IN) | payer MEDICARE ==
--- NOTE | 2025-01-19 10:25 | ED ---
Abdominal Pain HPI - General Chief Complaint: Abdominal Pain Stated Complaint: abd pain Time Seen by Provider: 01/19/25 10:25 Source: patient, RN notes reviewed, old records reviewed Mode of arrival: ambulatory Limitations: no limitations - History of Present Illness Initial Comments: 65-year-old male presented the ER for evaluation of abdominal pain. Patient reports he was seen here 2 days prior and diagnosed with constipation. Patient received GoLytely and was discharged home. Patient states he was feeling mildly better after having a bowel movement yesterday and was seen at [facility] to have laboratory studies obtained. He was found to have an elevated white blood count of 11.5 per patient. He also states he consumed pizza which may be contributing to his symptoms. He states he continues to have a suprapubic/lower cramping abdominal discomfort. He reports he has not been having normal bowel movements but has been urinating satisfactorily. He does have a history of enlarged prostate and does take Flomax. He denies any fevers or chills. Admits to nausea no vomiting. Patient does admit to prior bowel perforation with repair. He has not taken anything [id number] for his current symptoms. Denies any chest pain, shortness of breath, dizziness, lightheadedness or other complaints. - Related Data Home Medications Medication Instructions Recorded Confirmed Aspirin EC [Ecotrin Low Dose] 81 mg PO DAILY 02/09/20 01/19/25 Tamsulosin [Flomax] 0.4 mg PO BID 02/09/20 01/19/25 Atorvastatin [Lipitor] 40 mg PO DAILY 01/19/25 01/19/25 amLODIPine [Norvasc] 10 mg PO DAILY 01/19/25 01/19/25 carvediloL [Coreg] 3.125 mg PO BID 01/19/25 01/19/25 Allergies Allergy/AdvReac Type Severity Reaction Status Date / Time No Known Allergies Allergy Verified 01/19/25 11:27 Review of Systems ROS Statement: Those systems with pertinent positive or pertinent negative responses have been documented in the HPI. ROS Other: All systems not noted in ROS Statement are negative. Past Medical History Past Medical History: Hyperlipidemia, Hypertension, Osteoarthritis (OA), Prostate Disorder, Vascular Disorder Additional Past Medical History / Comment(s): PAD. Enlarged prostate. Hx Diverticulitis 01/06. bowel perforation History of Any Multi-Drug Resistant Organisms: None Reported Additional Past Surgical History / Comment(s): PTBA WITH STENT X1-2016, COLONOSCOPY. Past Anesthesia/Blood Transfusion Reactions: No Reported Reaction Past Psychological History: No Psychological Hx Reported Smoking Status: Current every day smoker Past Alcohol Use History: Rare Past Drug Use History: Marijuana - Past Family History Father Family Medical History: Cancer General Exam Limitations: no limitations General appearance: alert, in no apparent distress Respiratory exam: Present: normal lung sounds bilaterally. Absent: respiratory distress, wheezes, rales, rhonchi, stridor Cardiovascular Exam: Present: regular rate, normal rhythm, normal heart sounds. Absent: systolic murmur, diastolic murmur, rubs, gallop, clicks GI/Abdominal exam: Present: soft, tenderness (inferior to umbilicus/suprapubic), normal bowel sounds Extremities exam: Present: normal inspection, full ROM, normal capillary refill. Absent: tenderness, pedal edema, joint swelling, calf tenderness Neurological exam: Present: alert, oriented X3, CN II-XII intact Skin exam: Present: warm, dry, intact, normal color. Absent: rash Course Vital Signs 01/19/25 01/19/25 10:05 12:01 Temperature 97.9 F Pulse Rate 103 H 72 Respiratory 16 16 Rate Blood Pressure 177/73 140/72 O2 Sat by Pulse 98 98 Oximetry - Reevaluation(s) Reevaluation #1: 01/19/25 12:46 Case discussed with sound physician, , for admission. Medical Decision Making - Medical Decision Making Was pt. sent in by a medical professional or institution (, PA, KNOCK UP ASSEMBLER, urgent care, hospital, or shelter...) When possible be specific @ -No Did you speak to anyone other than the patient for history (EMS, parent, family, police, friend...)? What history was obtained from this source @ -No Did you review nursing and triage notes (agree or disagree)? Why? @ -I reviewed and agree with nursing and triage notes Were old charts reviewed (outside hosp., previous admission, EMS record, old EKG, old radiological studies, urgent care reports/EKG's, shelter records)? Report findings @ -Yes, I reviewed ER visit from 01 17 25. Patient evaluated for constipation and received GoLytely ultimately discharged home. Differential Diagnosis (chest pain, altered mental status, abdominal pain women, abdominal pain men, vaginal bleeding, weakness, fever, dyspnea, syncope, headache, dizziness, GI bleed, back pain, seizure, CVA, palpatations, mental health, musculoskeletal)? @ -Differential Abdominal Pain Men:Appendicitis, cholecystitis, diverticulosis, ischemic bowel, pancreatitis, hepatitis, UTI, gastroenteritis, AAA, incarcerated hernia, bowel obstruction, constipation, inflammatory bowel, hepatitis, peptic ulcer disease, splenic infarction, perforated viscus, testicul ar torsion, this is not meant to be an all-inclusive list EKG interpreted by me (3pts min.). @ -As above X-rays interpreted by me (1pt min.). @ -None done CT interpreted by me (1pt min.). @ -CT abdomen pelvis showing a heterogeneous slightly hyperdense mass within sigmoid colon wall with adjacent inflammatory changes. Abscess formation versus neoplasm. Some air present within this area. No free air. No intraperitoneal abscess formation. Acute diverticulitis. U/S interpreted by me (1pt. min.). @ -None done What testing was considered but not performed or refused? (CT, X-rays, U/S, labs )? Why? @ -None What meds were considered but not given or refused? Why? @ -None Did you discuss the management of the patient with other professionals (professionals i.e. , PA, KNOCK UP ASSEMBLER, lab, RT, psych nurse, certified social workers in health care, lawyers, teacher, patient transport officer, disability case manager)? Give summary @ -Yes, case discussed with sound physician, Dr. Arreola, for admission. Was smoking cessation discussed for >3mins.? @ -No Was critical care preformed (if so, how long)? @ -No Were there social determinants of health that impacted care today? How? (Homelessness, low income, unemployed, alcoholism, drug addiction, transportation, low edu. Level, literacy, decrease access to med. care, [facility], rehab)? @ -No Was there de-escalation of care discussed even if they declined (Discuss DNR or withdrawal of care, Hospice)? DNR status @ -No What co-morbidities impacted this encounter? (DM, HTN, Smoking, COPD, CAD, C ancer, CVA, ARF, Chemo, Hep., AIDS, mental health diagnosis, sleep apnea, morbid obesity)? @ -Hypertension, hyperlipidemia, prostate disorder, vascular disorder, History of diverticulitis with perforation 01-03-2022 Was patient admitted / discharged? Hospital course, mention meds given and route, prescriptions, significant lab abnormalities, going to OR and other pertinent info. @ -Admitted. 65-year-old male presented to ER for evaluation of abdominal pain and constipation. Upon arrival patient mild tachycardia at 103 bpm this did resolve. Vitals otherwise within acceptable limits. Abdominal exam remarkable for tenderness to palpation inferior to umbilicus. Normal bowel sounds without rebound or guarding. Workup obtained in the ER remarkable for leukocytosis 16.9 with left shift. Lactic 1.0. CMP unremarkable. Urinalysis with trace blood and rare bacteria. Given focal abdominal pain, CT abdomen pelvis obtained remarkable for hypodense mass within the sigmoid colon wall with adjacent inflammatory changes. Abscess formation versus neoplasm considered. Air present within this area no free air. No intraperitoneal abscess formation identified. Findings possibly resenting acute diverticulitis. Patient provided with symptomatic control with IV fluids and Toradol. Admission considered and accepted by sound physician, Dr. Arreola for IV antibiotic treatment and general surgery consultation of diverticulitis with abscess versus neoplasm. Blood cultures obtained. Patient started on IV Rocephin and Flagyl. General surgery on consult. Upon reevaluation, patient resting comfortably on stretcher no signs of acute distress. Results discussed with patient including concern of possible malignancy, all questions answered. Patient agreeable for admission. Patient admitted in stable condition for further evaluation and treatment. Case discussed with ED attending, Dr. Sweeney. Undiagnosed new problem with uncertain prognosis? @ -No Drug Therapy requiring intensive monitoring for toxicity (Heparin, Nitro, Insulin, Cardizem)? @ -No Were any procedures done? @ -No Diagnosis/symptom? @ -Diverticulitis r/o abscess vs.neoplasm Acute, or Chronic, or Acute on Chronic? @ -Acute Uncomplicated (without systemic symptoms) or Complicated (systemic symptoms)? @ -Complicated Side effects of treatment? @ -No Exacerbation, Progression, or Severe Exacerbation? @ -No Poses a threat to life or bodily function? How? (Chest pain, USA, [place], pneumonia, PE, COPD, DKA, ARF, appy, cholecystitis, CVA, Diverticulitis, Homicidal, Suicidal, threat to staff... and all critical care pts) @ -Yes, diverticulitis with abscess can lead to sepsis and/or bowel perforation. Cannot rule out malignancy. - Lab Data Result diagrams: 01/19/25 10:40 01/19/25 10:40 Lab Results 01/19/25 01/19/25 01/19/25 Range/Units 10:40 10:40 10:40 WBC 16.92 H (4.50-10.00) 10*3/uL RBC 4.53 (4.40-5.60) 10*6/uL Hgb 14.1 (13.0-17.0) g/dL Hct 40.2 (39.6-50.0) % MCV 88.7 (80.0-97.0) fL MCH 31.1 (27.0-32.0) pg MCHC 35.1 (32.0-37.0) g/dL Plt Count 293 (140-440) 10*3/uL MPV 10.8 (9.5-12.2) fL Immature Gran % (Auto) 0.5 % Neutrophils % 78.4 % Lymphocytes % 9.6 % Monocytes % 10.6 % Eosinophils % 0.4 % Basophils % 0.5 % Immature Gran # 0.09 H (0.00-0.04) 10*3/uL Neutrophils # 13.25 H (1.80-7.70) 10*3/uL Lymphocytes # 1.63 (0.90-5.00) 10*3/uL Monocytes # 1.80 H (0.20-1.00) 10*3/uL Eosinophils # 0.07 (0.04-0.35) 10*3/uL Basophils # 0.08 (0.00-0.10) 10*3/uL Sodium 137 (137-145) mmol/L Potassium 3.7 (3.5-5.1) mmol/L Chloride 104 (98-107) mmol/L Carbon Dioxide 24 (22-30) mmol/L Anion Gap 9 mmol/L BUN 16 (9-20) mg/dL Creatinine 1.01 (0.66-1.25) mg/dL Est GFR (CKD-EPI)AfAm 89 (>60 ml/min/1.73 sqM) Est GFR (CKD-EPI)NonAf 77 (>60 ml/min/1.73 sqM) Glucose 135 H (74-99) mg/dL Plasma Lactic Acid [place] 1.0 (0.7-2.0) mmol/L Calcium 9.1 (8.4-10.2) mg/dL Total Bilirubin 1.0 (0.2-1.3) mg/dL AST 33 (17-59) U/L ALT 25 (4-49) U/L Alkaline Phosphatase 120 (38-126) U/L Total Protein 6.5 (6.3-8.2) g/dL Albumin 3.6 (3.5-5.0) g/dL Amylase 45 (30-110) U/L Lipase 53 (23-300) U/L Urine Color Urine Appearance (Clear) Urine pH (5.0-8.0) Ur Specific [place] (1.001-1.035) Urine Protein (Negative) Urine Glucose (UA) (Negative) Urine Ketones (Negative) Urine Blood (Negative) Urine Nitrite (Negative) Urine Bilirubin (Negative) Urine Urobilinogen (<2.0) mg/dL Ur Leukocyte Esterase (Negative) Urine RBC (0-5) /hpf Urine WBC (0-5) /hpf Urine Bacteria (None) /hpf Urine Mucus (None) /hpf 01/19/25 Range/Units 11:49 WBC (4.50-10.00) 10*3/uL RBC (4.40-5.60) 10*6/uL Hgb (13.0-17.0) g/dL Hct (39.6-50.0) % MCV (80.0-97.0) fL MCH (27.0-32.0) pg MCHC (32.0-37.0) g/dL Plt Count (140-440) 10*3/uL MPV (9.5-12.2) fL Immature Gran % (Auto) % Neutrophils % % Lymphocytes % % Monocytes % % Eosinophils % % Basophils % % Immature Gran # (0.00-0.04) 10*3/uL Neutrophils # (1.80-7.70) 10*3/uL Lymphocytes # (0.90-5.00) 10*3/uL Monocytes # (0.20-1.00) 10*3/uL Eosinophils # (0.04-0.35) 10*3/uL Basophils # (0.00-0.10) 10*3/uL Sodium (137-145) mmol/L Potassium (3.5-5.1) mmol/L Chloride (98-107) mmol/L Carbon Dioxide (22-30) mmol/L Anion Gap mmol/L BUN (9-20) mg/dL Creatinine (0.66-1.25) mg/dL Est GFR (CKD-EPI)AfAm (>60 ml/min/1.73 sqM) Est GFR (CKD-EPI)NonAf (>60 ml/min/1.73 sqM) Glucose (74-99) mg/dL Plasma Lactic Acid [place] (0.7-2.0) mmol/L Calcium (8.4-10.2) mg/dL Total Bilirubin (0.2-1.3) mg/dL AST (17-59) U/L ALT (4-49) U/L Alkaline Phosphatase (38-126) U/L Total Protein (6.3-8.2) g/dL Albumin (3.5-5.0) g/dL Amylase (30-110) U/L Lipase (23-300) U/L Urine Color Light Yellow Urine Appearance Clear (Clear) Urine pH 6.5 (5.0-8.0) Ur Specific [place] 1.034 (1.001-1.035) Urine Protein Negative (Negative) Urine Glucose (UA) Negative (Negative) Urine Ketones Negative (Negative) Urine Blood Trace H (Negative) Urine Nitrite Negative (Negative) Urine Bilirubin Negative (Negative) Urine Urobilinogen <2.0 (<2.0) mg/dL Ur Leukocyte Esterase Negative (Negative) Urine RBC <1 (0-5) /hpf Urine WBC 1 (0-5) /hpf Urine Bacteria Rare H (None) /hpf Urine Mucus Rare H (None) /hpf - EKG Data -: EKG Interpreted by Me EKG Comments: EKG completed at 10: 33 showing a sinus rhythm. No ST segment elevations or depressions. No T wave inversions. Ventricular rate 85, VT interval 133, QRS duration 82, QT/QTc 355/398. - Radiology Data Radiology results: report reviewed, image reviewed Disposition Clinical Impression: Diverticulitis, Abscess of sigmoid colon Disposition: ADMITTED IP TO THIS HOSP Condition: Stable Referrals: Brien Wyman DO [Primary Care Provider] - 1-2 days Time of Disposition: 12:42
[2025-01-19 10:53] LABS: Basophils # (A) 0.08 10*3/uL (0.00-0.10); Basophils % (A) 0.5 %; Eosinophils # (A) 0.07 10*3/uL (0.04-0.35); Eosinophils % (A) 0.4 %; HCT 40.2 % (39.6-50.0); HGB 14.1 g/dL (13.0-17.0); Lymphocytes # (A) 1.63 10*3/uL (0.90-5.00); Lymphocytes % (A) 9.6 %; MCH 31.1 pg (27.0-32.0); MCHC 35.1 g/dL (32.0-37.0); MCV 88.7 fL (80.0-97.0); Mean Platelet Volume 10.8 fL (9.5-12.2); Monocytes % (A) 10.6 %; Neutrophils # (A) 13.25 10*3/uL (1.80-7.70); Neutrophils % (A) 78.4 %; Platelet Count 293 10*3/uL (140-440); RBC 4.53 10*6/uL (4.40-5.60); RDW 12.2 % (11.5-14.5); WBC 16.92 10*3/uL (4.50-10.00)
[2025-01-19 11:07] LABS: ALT 25 U/L (4-49); African American GFR (CKD) 89 (>60 ml/min/1.73 sqM); Albumin 3.6 g/dL (3.5-5.0); Amylase 45 U/L (30-110); Anion Gap 9 mmol/L; Blood Urea Nitrogen 16 mg/dL (9-20); Calcium 9.1 mg/dL (8.4-10.2); Carbon Dioxide 24 mmol/L (22-30); Chloride 104 mmol/L (98-107); Glucose 135 mg/dL (74-99); Lipase 53 U/L (23-300); Non-African American GFR(CKD) 77 (>60 ml/min/1.73 sqM); Sodium 137 mmol/L (137-145); Total Protein 6.5 g/dL (6.3-8.2)
[2025-01-19 11:12] LABS: AST 33 U/L (17-59); Alkaline Phosphatase 120 U/L (38-126); Potassium 3.7 mmol/L (3.5-5.1)
[2025-01-19] MEDS: SODIUM CHLORIDE 0.9% 1,000 ML IV ONE (11:57)
[2025-01-19] MEDS: KETOROLAC 15 MG/ML 1 ML VIAL IVP STA (11:58)
[2025-01-19 12:07] LABS: Appearance,Urine Clear (Clear); Bacteria,Urine Rare /hpf; Bilirubin,Urine Negative (Negative); Blood,Urine Trace (Negative); Color,Urine Light Yellow; Glucose,Urine (UA) Negative (Negative); Ketones,Urine Negative (Negative); Leukocyte Esterase,Urine Negative (Negative); Mucus,Urine Rare /hpf; Nitrite,Urine Negative (Negative); PH, Urine 6.5 (5.0-8.0); Protein,Urine Negative (Negative); RBC,Urine <1 /hpf (0-5); Specific Gravity,Urine 1.034 (1.001-1.035); Urobilinogen,Urine <2.0 mg/dL (<2.0); WBC,Urine 1 /hpf (0-5)
--- NOTE | 2025-01-19 12:20 | CT ---
EXAMINATION TYPE: CT abdomen pelvis w con DATE OF EXAM: 01/19/2025 11:47 AM COMPARISON: None. CLINICAL INDICATION: Male, 65 years old with history of abd pain, UMBILICAL PAIN TECHNIQUE: Axial images were obtained from above the diaphragm to the pubic rami in the axial plane a t 5 mm thick sections. Reconstructed images are reviewed on the computer in the coronal plane. CONTRAST: 100 ml mL of Isovue 300. Study performed without Oral Contrast DLP: 889.6 mGycm, Automated exposure control for dose reduction was used. FINDINGS: Limited CT sections are obtained the lung bases. The lung bases are clear. CT ABDOMEN: Liver: Normal Spleen: Normal Pancreas: Normal Adrenal glands: The adrenal glands are normal. Gallbladder: Normal Kidneys: No masses are evident. No hydronephrosis is present. No cysts are present. Delayed images were obtained through the kidneys, which remain unremarkable. Aorta: Vascular calcification is within the aorta. Inferior vena cava: Normal. CT PELVIS: There is thickening of the mid sigmoid colon. Inflammatory changes are adjacent to a hypodense comple x area measuring 2.8 x 3.4 cm. This appears to be intramural. Abscess formation within the sigmoid co rakel wall should be considered. Differential would include neoplasm. Small amounts of air are within t his region. No free air is evident. No extramural abscess formation is identified. There are multiple diverticuli present through the sigmoid colon. The remaining loops of bowel appear unremarkable. No dilated loops of bowel or obstruction are eviden t. This study is without oral contrast limiting bowel evaluation. Appendix: Normal as visualized. Urinary bladder: Normal. Genitourinary structures: Prostate contains calcification and is somewhat prominent. Osseous structures: No suspicious lytic or sclerotic lesions. IMPRESSION: 1. Heterogenous slightly hypodense mass appears to be within the sigmoid colon wall with adjacent in flammatory changes. Abscess formation and neoplasm could be considered. There is some air present wit hin this area. No free air is present. No intraperitoneal abscess formation is otherwise identified. Findings could be compatible with acute diverticulitis. [facility], , 01/19/2025 12:18 PM
[2025-01-19] MEDS ORDERED: NALOXONE 0.4 MG/ML 1 ML VIAL IV PRN (12:45)
[2025-01-19] MEDS ORDERED: KETOROLAC 15 MG/ML 1 ML VIAL IVP PRN (12:45)
[2025-01-19] MEDS ORDERED: ONDANSETRON 4 MG/2 ML VIAL IVP PRN (12:45)
[2025-01-19] MEDS ORDERED: ACETAMINOPHEN TAB 325 MG TAB PO PRN (12:45)
[2025-01-19] MEDS: metroNIDAZOLE-NS PMX 500 MG in SALINE 1 100ML.BAG IVPB SCH (13:54)
[2025-01-19] MEDS: SODIUM CHLORIDE 0.9% 1,000 ML IV SCH (14:17)
--- NOTE | 2025-01-19 15:09 | P.HPIM ---
History of Present Illness H&P Date: 01/19/25 Patient is a 65-year-old male with history of diverticulosis, hypertension, BPH, dyslipidemia presenting with abdominal pain. He claims that abdominal pain started about a week ago. Worse with bowel movements or urinating. He claims that it is mostly in the lower part of his abdomen, feels crampy in nature, 10 out of 10 at worst, comes and goes. He has not noticed any nausea or vomiting. No fevers or chills. Has been constipated, was recently given GoLytely with only 1 small bowel movement. His last colonoscopy was about 3 years ago, found to have adenomas. In the ED, temperature was 97.9, pulse 103, respiratory rate 16, blood pressure 177/73, saturating at 98% on room air. WBC 16.92, creatinine 1.01, lactate 1, lipase 53, urinalysis negative for leukocyte esterase and nitrites. EKG independently interpreted, shows normal sinus rhythm. CT abdomen pelvis shows heterogenous slightly hyperdense mass within sigmoid colon wall with adjacent inflammatory changes, possible acute diverticulitis, abscess formation or neoplasm could be considered. Patient started on IV ceftriaxone and IV Flagyl. General surgery consulted. Patient being admitted for sepsis secondary to acute diverticulitis. Pertinent positives and negatives as discussed in HPI, a complete review of systems was performed and all other systems are negative. Patient seen and examined at bedside. Vital signs reviewed General: nontoxic, no distress, appears at stated age Derm: warm, dry Head: atraumatic, normocephalic, symmetric Eyes: EOMI, no lid lag, anicteric sclera, pupils equal round reactive to light ENT: Nose and ears atraumatic Neck: No thyromegaly, supple Mouth: no lip lesion, mucus membranes moist Cardiovascular: S1S2 reg, no murmur, no edema Lungs: clear to auscultation bilateral, no rhonchi, no rales, no wheeze, no accessory muscle use Abdominal: soft, tender to palpation in the lower quadrant, no guarding, no appreciable organomegaly Ext: no gross muscle atrophy, muscle strength muscle strength 5 out of 5 in all 4 extremities, no contractures Neuro: CN II-XII grossly intact Psych: Alert, oriented, appropriate affect Assessment/Plan: Active: Sepsis secondary to acute diverticulitis History of sigmoid diverticulitis with perforation - Patient received 1 L of normal saline in the ED, continued on normal saline at 75 cc an hour - On ceftriaxone IV 2 g daily, and IV Flagyl 500 every 8 hours - Pain control with oral Tylenol as needed, IV Toradol as needed - General Surgery consulted, pending recommendations - Previous colonoscopy from 2019 did show tubular adenoma with low-grade dysplasia Chronic: Hypertension Dyslipidemia BPH Peripheral vascular disease status post prior stent Moderate aortic insufficiency Mild mitral regurgitation The patient is admitted with an anticipated less than 2 midnight stay as observation status for evaluation of sepsis secondary to acute diverticulitis. Surrogate decision-maker: CODE STATUS: Full code DVT prophylaxis: Subcu heparin Anticipated discharge date: Pending clinical course Anticipated discharge place: Pending clinical course A total of 66 minutes was spent on the care of this complex patient more than 50% of the time was spent in counseling and care coordination. Past Medical History Past Medical History: Hyperlipidemia, Hypertension, Osteoarthritis (OA), Prostate Disorder, Vascular Disorder Additional Past Medical History / Comment(s): PAD. Enlarged prostate. Hx Diverticulitis 01/06. bowel perforation History of Any Multi-Drug Resistant Organisms: None Reported Additional Past Surgical History / Comment(s): PTBA WITH STENT X1-2015, COLONOSCOPY. Past Anesthesia/Blood Transfusion Reactions: No Reported Reaction Past Psychological History: No Psychological Hx Reported Smoking Status: Current every day smoker Past Alcohol Use History: Rare Past Drug Use History: Marijuana - Past Family History Father Family Medical History: Cancer Medications and Allergies Home Medications Medication Instructions Recorded Confirmed Type Aspirin EC [Ecotrin Low Dose] 81 mg PO DAILY 02/09/20 01/19/25 History Tamsulosin [Flomax] 0.4 mg PO BID 02/09/20 01/19/25 History Atorvastatin [Lipitor] 40 mg PO DAILY 01/19/25 01/19/25 History amLODIPine [Norvasc] 10 mg PO DAILY 01/19/25 01/19/25 History carvediloL [Coreg] 3.125 mg PO BID 01/19/25 01/19/25 History Allergies Allergy/AdvReac Type Severity Reaction Status Date / Time No Known Allergies Allergy Verified 01/19/25 11:27 Physical Exam Vitals: Vital Signs Temp Pulse Resp BP Pulse Ox 01/19/25 13:22 75 16 113/58 100 01/19/25 12:01 72 16 140/72 98 01/19/25 10:05 97.9 F 103 H 16 177/73 98 Intake and Output 01/18/25 01/19/25 01/19/25 22:59 06:59 14:59 Other: Weight 80.739 kg Results CBC & Chem 7: 01/19/25 10:40 01/19/25 10:40 Labs: Abnormal Lab Results - Last 24 Hours (Table) 01/19/25 01/19/25 01/19/25 Range/Units 10:40 10:40 11:49 WBC 16.92 H (4.50-10.00) 10*3/uL Immature Gran # 0.09 H (0.00-0.04) 10*3/uL Neutrophils # 13.25 H (1.80-7.70) 10*3/uL Monocytes # 1.80 H (0.20-1.00) 10*3/uL Glucose 135 H (74-99) mg/dL Urine Blood Trace H (Negative) Urine Bacteria Rare H (None) /hpf Urine Mucus Rare H (None) /hpf
--- NOTE | 2025-01-19 15:18 | P.GSCN ---
History of Present Illness Consult date: 01/19/25 History of present illness: CHIEF COMPLAINT: Abdominal pain HISTORY OF PRESENT ILLNESS: This is a 65-year-old male who presented to the hospital with complaints of abdominal pain. Patient complains of lower abdominal pain for about 1 week. He was in the ER 2 days ago with complaints of constipation and was given GoLytely. Patient reports only 1 bowel movement. He complains of crampy pain across the lower abdomen which is worse with urinating. He reports that the pain can become very sharp and severe and at times rates it 10 out of 10. He denies any nausea or vomiting. He did have a bowel movement yesterday. Denies any blood in his stools. Does have a history of perforated diverticulitis that was managed conservatively and colon polyps. Last colonosc opy was in 2021 reported diverticulosis and colon polyps. Patient had CT scan abdomen pelvis that reported a heterogeneous slightly hypodense mass appears to be within the sigmoid colon wall with adjacent inflammatory changes. Abscess formation and neoplasm could be considered. There is some air present within this area. No free air is present. No intraperitoneal abscess formation is otherwise identified findings could be compatible with acute diverticulitis. Patient denies passing any stool with his urine. Patient denies any prior abdominal surgeries. PAST MEDICAL HISTORY: See below PAST SURGICAL HISTORY: See below MEDICATIONS: See below ALLERGIES: See below SOCIAL HISTORY: No illicit drug use. REVIEW OF SYSTEMS: CONSTITUTIONAL: Denies fever or chills. HEENT: Denies blurred vision, vision changes, or eye pain. Denies hemoptysis CARDIOVASCULAR: Denies chest pain or pressure. RESPIRATORY: No shortness of breath. GASTROINTESTINAL: See HPI for pertinent findings HEMATOLOGIC: Denies bleeding disorders. GENITOURINARY: Denies any blood in urine or increased urinary frequency. SKIN: Denies pruitis. Denies rash. PHYSICAL EXAM: VITAL SIGNS: Reviewed GENERAL: Well-developed in no acute distress. HEENT: No sclera icterus. Extraocular movements grossly intact. Moist buccal mucosa. Head is atraumatic, normocephalic. No nasal drainage. ABDOMEN: Soft. Nondistended. Tenderness palpation across the lower abdomen more so in the right lower quadrant. No rebound or guarding noted. NEUROLOGIC: Alert and oriented. Cranial nerves II through XII grossly intact. LABORATORY DATA: WBC is 16.92 Hgb 14.1 platelets 293 Sodium 137 potassium 3.7 creatinine 1.01 LFTs normal Lipase 53 IMAGING: CT scan abdomen and pelvis reports heterogenous slightly hypodense mass appears to be within the sigmoid colon wall with adjacent inflammatory changes. Abscess formation and neoplasm could be considered. There is some air present within this area. No free air. No intraperitoneal abscess formation is otherwise identified. Findings could be compatible with acute diverticulitis. ASSESSMENT: 1. Abdominal pain with CT reporting heterogenous slightly hypodense mass a ppears to be within the sigmoid colon wall with adjacent inflammatory changes. Abscess formation and neoplasm could be considered. 2. Possible acute diverticulitis 3. Constipation 4. History of perforated diverticulitis 5. History of colon polyps PLAN: - Further recommendations forthcoming per surgeon - Downgrade diet to n.p.o. - Continue IV fluids - Continue IV antibiotics - Consult infectious disease Physician Fuse Cup Expander note has been reviewed by physician. Signing provider agrees with the documented findings, assessment, and plan of care. Please see additional documentation below per MD REASON FOR CONSULTATION: Perforated diverticulitis HISTORY OF PRESENT ILLNESS: The patient is a 65 year old male with pre-existing history of perforated diverticulitis 3 years ago. He presents now with at least 2 to 3 days of lower abdominal pain. Patient did present to the emergency room with complaint of prostate pain. No blood in stools. He reports superior left lower quadrant abdominal pain. He has had prior episode of abdominal pain with perforation treated with IV antibiotics. Patient declined any surgical intervention at the time of his prior perforated diverticulitis. Patient has tobacco abuse disorder. General services consulted due to perforated diverticulitis. Additionally, he reports pain with urination. No blood in stools. PAST MEDICAL HISTORY: See list and reviewed PAST SURGICAL HISTORY: See list and reviewed MEDICATIONS: See list and reviewed ALLERGIES: See list and reviewed SOCIAL HISTORY: See list and reviewed FAMILY HISTORY: See list and reviewed REVIEW OF ORGAN SYSTEMS: CONSTITUTIONAL: No fevers or chills. No recent weight loss. EYES: Denies any trouble with vision. No glasses. HEENT: No difficulties with hearing. No nosebleeds. No difficulty swallowing. RESPIRATORY: Denies pneumonia. Has tobacco abuse disorder. CARDIOVASCULAR: Has hyperlipidemia. Has hypertension. GASTROINTESTINAL: Has change in bowel habits. Patient is no history of diverticulitis. GENITOURINARY: Has increased urinary frequency due to prostate disorder. NEUROLOGICAL: Denies any numbness or tingling along the distal extremities. No seizure disorders or headaches. MUSCULOSKELETAL: Has back pain, stiffness or joint arthritis. SKIN: No current skin cancer. No rash. PSYCHIATRIC: Denies current depression or suicidal thoughts. ENDOCRINE: Denies current thyroid disorders. Denies any blood sugar glucose intolerance. HEME/LYMPHATIC: Denies any lumps and bumps around the neck. No recent deep venous thrombosis. ALLERGY/IMMUNOLOGY: No immunoglobulin therapy. No immune deficiencies. BREAST: Denies current breast lumps, pain or nipple discharge. PHYSICAL EXAM: VITALS: Reviewed CONSTITUTIONAL: Well developed and in no acute distress. EYES: Conjuctivae without sclera icterus. Extraocular movements grossly intact. HEAD, EARS, NOSE, THROAT: Moist buccal mucosa. Head is atraumatic, normocephalic. Hears conversational speech. No nasal drainage. NECK: Supple. No JV distention. No thyroidomegaly. RESPIRATORY: Non-labored respirations and equal bilateral excursions. No gross wheezes. CARDIOVASCULAR: Regular rate and rhythm. Extremities without moderate edema. Palpable 2+ radial pulses. ABDOMEN: Tender left lower quadrant. No rigidity. LYMPH: No gross neck lymphadenopathy. MUSCULOSKELETAL: No clubbing cyanosis or edema. SKIN: Warm and well perfused with good skin turgor. NEUROLOGIC: Cranial nerves II through XII grossly intact. No focal or lateralizing signs. PSYCH: Appropriate affect. Alert and oriented to person, place and time. Displays appropriate insight. CLINCAL LABS: Reviewed. WBC elevated over 16,000. IMAGING: Independently reviewed CT of the abdomen and pelvis demonstrates intramural abscess of the sigmoid colon. Inflammation of the sigmoid colon. No diffuse free air. This is my independent interpretation. RADIOLOGY: Report reviewed of CT with without pneumoperitoneum. Abscess of the sigmoid colon. EKG: Normal sinus rhythm. RECORDS: previous old records reviewed with colonoscopy in 2021 demonstrates diverticulosis including sigmoid colon ASSESSMENT: 1. Perforated sigmoid diverticulitis 2. Leukocytosis 3. History of colon polyp 4. Tobacco abuse disorder 5. Hypertensive heart disease 6. Peripheral vascular occlusive disease PLAN: 1. IV fluid hydration 2. IV antibiotics 3. Strict tobacco cessation advised 4. Recommend consultation with infectious disease due to pre-existing history of complicated diverticulitis. Called stat ADVANCE DIRECTIVE: CODE STATUS in chart Thank you for this kind consultation. Past Medical History Past Medical History: Hyperlipidemia, Hypertension, Osteoarthritis (OA), Prostate Disorder, Vascular Disorder Additional Past Medical History / Comment(s): PAD. Enlarged prostate. Hx Diverticulitis 01/06. bowel perforation History of Any Multi-Drug Resistant Organisms: None Reported Additional Past Surgical History / Comment(s): PTBA WITH STENT X1-2016, COLONOSCOPY. Past Anesthesia/Blood Transfusion Reactions: No Reported Reaction Past Psychological History: No Psychological Hx Reported Smoking Status: Current every day smoker Past Alcohol Use History: Rare Past Drug Use History: Marijuana - Past Family History Father Family Medical History: Cancer Medications and Allergies Home Medications Medication Instructions Recorded Confirmed Type Aspirin EC [Ecotrin Low Dose] 81 mg PO DAILY 02/09/20 01/19/25 History Tamsulosin [Flomax] 0.4 mg PO BID 02/09/20 01/19/25 History Atorvastatin [Lipitor] 40 mg PO DAILY 01/19/25 01/19/25 History amLODIPine [Norvasc] 10 mg PO DAILY 01/19/25 01/19/25 History carvediloL [Coreg] 3.125 mg PO BID 01/19/25 01/19/25 History cefuroxime axetiL [Ceftin] 500 mg PO BID #20 tab 01/21/25 Rx metroNIDAZOLE [Flagyl] 500 mg PO TID #30 tab 01/21/25 Rx Allergies Allergy/AdvReac Type Severity Reaction Status Date / Time No Known Allergies Allergy Verified 01/19/25 11:27 Surgical - Exam Vital Signs Temp Pulse Resp BP Pulse Ox 97.9 F 103 H 16 177/73 98 01/19/25 10:05 01/19/25 10:05 01/19/25 10:05 01/19/25 10:05 01/19/25 10:05 Results - Labs 01/21/25 04:01 01/21/25 04:01 Abnormal Lab Results - Last 24 Hours (Table) 01/19/25 01/19/25 01/19/25 Range/Units 10:40 10:40 11:49 WBC 16.92 H (4.50-10.00) 10*3/uL Immature Gran # 0.09 H (0.00-0.04) 10*3/uL Neutrophils # 13.25 H (1.80-7.70) 10*3/uL Monocytes # 1.80 H (0.20-1.00) 10*3/uL Glucose 135 H (74-99) mg/dL Urine Blood Trace H (Negative) Urine Bacteria Rare H (None) /hpf Urine Mucus Rare H (None) /hpf Diabetes panel 01/19/25 Range/Units 10:40 Sodium 137 (137-145) mmol/L Potassium 3.7 (3.5-5.1) mmol/L Chloride 104 (98-107) mmol/L Carbon Dioxide 24 (22-30) mmol/L BUN 16 (9-20) mg/dL Creatinine 1.01 (0.66-1.25) mg/dL Glucose 135 H (74-99) mg/dL Calcium 9.1 (8.4-10.2) mg/dL AST 33 (17-59) U/L ALT 25 (4-49) U/L Alkaline Phosphatase 120 (38-126) U/L Total Protein 6.5 (6.3-8.2) g/dL Albumin 3.6 (3.5-5.0) g/dL Calcium panel 01/19/25 Range/Units 10:40 Calcium 9.1 (8.4-10.2) mg/dL Albumin 3.6 (3.5-5.0) g/dL Pituitary panel 01/19/25 Range/Units 10:40 Sodium 137 (137-145) mmol/L Potassium 3.7 (3.5-5.1) mmol/L Chloride 104 (98-107) mmol/L Carbon Dioxide 24 (22-30) mmol/L BUN 16 (9-20) mg/dL Creatinine 1.01 (0.66-1.25) mg/dL Glucose 135 H (74-99) mg/dL Calcium 9.1 (8.4-10.2) mg/dL Adrenal panel 01/19/25 Range/Units 10:40 Sodium 137 (137-145) mmol/L Potassium 3.7 (3.5-5.1) mmol/L Chloride 104 (98-107) mmol/L Carbon Dioxide 24 (22-30) mmol/L BUN 16 (9-20) mg/dL Creatinine 1.01 (0.66-1.25) mg/dL Glucose 135 H (74-99) mg/dL Calcium 9.1 (8.4-10.2) mg/dL Total Bilirubin 1.0 (0.2-1.3) mg/dL AST 33 (17-59) U/L ALT 25 (4-49) U/L Alkaline Phosphatase 120 (38-126) U/L Total Protein 6.5 (6.3-8.2) g/dL Albumin 3.6 (3.5-5.0) g/dL
[2025-01-19] MEDS: HYDROmorphone 1 MG/ML 1 ML SYRINGE IVP PRN (15:50)
[2025-01-19] MEDS: HEPARIN SODIUM,PORCINE 5,000 UNIT/ML 1 ML VIAL SQ SCH (15:50)
[2025-01-19] MEDS ORDERED: metroNIDAZOLE-NS PMX 500 MG in SALINE 1 100ML.BAG IVPB SCH ×2 (16:00→22:00)
[2025-01-19] MEDS: carvediloL 3.125 MG TAB PO SCH (17:21)
[2025-01-19] MEDS: PIPERACILLIN-TAZOBACTAM 3.375 GM in SODIUM CHLORIDE 0.9% 100 ML IVPB SCH (17:45)
[2025-01-19] MEDS: TAMSULOSIN 0.4 MG CAP.ER.24H PO SCH (20:22)
[2025-01-20 07:17] LABS: Basophils # (A) 0.08 10*3/uL (0.00-0.10); Basophils % (A) 0.4 %; Eosinophils # (A) 0.14 10*3/uL (0.04-0.35); Eosinophils % (A) 0.8 %; HCT 39.9 % (39.6-50.0); HGB 13.8 g/dL (13.0-17.0); Lymphocytes # (A) 1.29 10*3/uL (0.90-5.00); MCH 31.7 pg (27.0-32.0); MCHC 34.6 g/dL (32.0-37.0); MCV 91.5 fL (80.0-97.0); Mean Platelet Volume 11.3 fL (9.5-12.2); Monocytes # (A) 1.53 10*3/uL (0.20-1.00); Monocytes % (A) 8.4 %; Neutrophils # (A) 15.16 10*3/uL (1.80-7.70); Neutrophils % (A) 82.9 %; Platelet Count 260 10*3/uL (140-440); RBC 4.36 10*6/uL (4.40-5.60); RDW 12.6 % (11.5-14.5)
[2025-01-20 07:23] LABS: African American GFR (CKD) 84 (>60 ml/min/1.73 sqM); Anion Gap 9 mmol/L; Blood Urea Nitrogen 15 mg/dL (9-20); Calcium 8.6 mg/dL (8.4-10.2); Carbon Dioxide 23 mmol/L (22-30); Chloride 108 mmol/L (98-107); Glucose 91 mg/dL (74-99); Non-African American GFR(CKD) 73 (>60 ml/min/1.73 sqM); Potassium 4.1 mmol/L (3.5-5.1); Sodium 140 mmol/L (137-145)
[2025-01-20] MEDS: ASPIRIN 81 MG PO SCH (09:05)
[2025-01-20] MEDS: ATORVASTATIN 40 MG TAB PO SCH (09:05)
[2025-01-20] MEDS: amLODIPine 10 MG TAB PO SCH (09:06)
--- NOTE | 2025-01-20 09:26 | P.CONS ---
History of Present Illness - Reason for Consult Consult date: 01/19/25 Perforated diverticulitis/abscess Requesting physician: Alesia Zimmerman - Chief Complaint Abdominal pain x few days - History of Present Illness Patient is a 65-year-old male with a past medical history significant for hypertension hyperlipidemia osteoarthritis prostate disorder did have history of perforated diverticulitis with an abscess presenting to the hospital for evaluation of abdominal pain which apparently has been getting worse for the last few days patient was previously evaluated in this ER and was diagnosed with constipation patient was given GoLytely with the patient has taken patient mention he felt mildly better after having a bowel movement however subsequently noticed having increasing pain to the lower abdominal area describing it to be crampy moderate to severe intensity without any radiation did have some nausea but no vomiting denies high-grade fever with the symptoms the patient has been evaluated on presentation to the hospital patient was afebrile no fever have been recorded subsequently patient was not tachycardic hypotensive or hypoxic he did have a white count of 16.92 with a left shift creatinine is 1.01 electrolytes are normal liver enzymes are normal urine has been negative patient did have a abdominal pelvis CT which did shows heterogeneous slightly hyperdense mass within the sigmoid colon wall with adjacent inflammatory changes concerning for intraperitoneal abscess and acute diverticulitis patient was started on Rocephin and Flagyl infectious disease was consulted for further management of antibiotic therapy Review of Systems Positive point and negatives has been mentioned in the HPI, complete review of systems was performed and all other systems are negative Past Medical History Past Medical History: Hyperlipidemia, Hypertension, Osteoarthritis (OA), Prostate Disorder, Vascular Disorder Additional Past Medical History / Comment(s): PAD. Enlarged prostate. Hx Diverticulitis 01/06. bowel perforation History of Any Multi-Drug Resistant Organisms: None Reported Additional Past Surgical History / Comment(s): PTCA WITH STENT X1-2016, COLONOSCOPY. Past Anesthesia/Blood Transfusion Reactions: No Reported Reaction Past Psychological History: No Psychological Hx Reported Smoking Status: Current every day smoker Past Alcohol Use History: Rare Additional Past Alcohol Use History / Comment(s): STARTED SMOKING AT AGE 15 SMOKES 1 PPD. Past Drug Use History: Marijuana Additional Drug Use History / Comment(s): Marijuana use daily. - Past Family History Father Family Medical History: Cancer Medications and Allergies Home Medications Medication Instructions Recorded Confirmed Type Aspirin EC [Ecotrin Low Dose] 81 mg PO DAILY 02/09/20 01/19/25 History Tamsulosin [Flomax] 0.4 mg PO BID 02/09/20 01/19/25 History Atorvastatin [Lipitor] 40 mg PO DAILY 01/19/25 01/19/25 History amLODIPine [Norvasc] 10 mg PO DAILY 01/19/25 01/19/25 History carvediloL [Coreg] 3.125 mg PO BID 01/19/25 01/19/25 History Allergies Allergy/AdvReac Type Severity Reaction Status Date / Time No Known Allergies Allergy Verified 01/19/25 11:27 Physical Exam Vitals: Vital Signs Temp Pulse Pulse Resp BP BP Pulse Ox 01/19/25 16:09 98.2 F 72 14 138/65 97 01/19/25 15:12 98.4 F 86 16 115/58 95 01/19/25 13:22 75 16 113/58 100 01/19/25 12:01 72 16 140/72 98 01/19/25 10:05 97.9 F 103 H 16 177/73 98 Intake and Output 01/19/25 01/19/25 01/19/25 06:59 14:59 22:59 Other: Weight 80.739 kg 80.739 kg GENERAL DESCRIPTION: Elderly male lying in bed, no distress. No tachypnea or accessory muscle of respiration use. HEENT: Shows Pallor , no scleral icterus. Oral mucous membrane is dry. NECK: Trachea central, no thyromegaly. LUNGS: Unlabored breathing. Clear to auscultation anteriorly. No wheeze or crackle. HEART: S1, S2, regular rate and rhythm. No loud murmur ABDOMEN: Soft, lower abdominal tenderness EXTREMITIES: No edema of feet. SKIN: No rash, no masses palpable. NEUROLOGICAL: The patient is awake, alert, oriented x3, mood and affect normal. Results CBC & Chem 7: 01/20/25 05:40 01/20/25 05:40 Labs: Abnormal Lab Results - Last 24 Hours (Table) 01/19/25 01/19/25 01/19/25 Range/Units 10:40 10:40 11:49 WBC 16.92 H (4.50-10.00) 10*3/uL Immature Gran # 0.09 H (0.00-0.04) 10*3/uL Neutrophils # 13.25 H (1.80-7.70) 10*3/uL Monocytes # 1.80 H (0.20-1.00) 10*3/uL Glucose 135 H (74-99) mg/dL Urine Blood Trace H (Negative) Urine Bacteria Rare H (None) /hpf Urine Mucus Rare H (None) /hpf Assessment and Plan (1) Leukocytosis Current Visit: Yes Status: Acute Code(s): D72.829 - ELEVATED WHITE BLOOD CELL COUNT, UNSPECIFIED SNOMED Code(s): 668239395 (2) Abscess of sigmoid colon Current Visit: Yes Status: Acute Code(s): K63.0 - ABSCESS OF INTESTINE SNOMED Code(s): 417426551 (3) Diverticulitis of colon with perforation Current Visit: No Status: Acute Code(s): K57.20 - DVTRCLI OF LG INT W PERFORATION AND ABSCESS W/O BLEEDING SNOMED Code(s): 92627425 Plan: 1patient presented the hospital abdominal pain in this patient do have history of peripheral diverticulitis and abscess in the past now with evidence of diverticulitis and peridiverticular abscess likely from perforated diverticulitis and will need to cover for enteric gram-negative both aerobes and anaerobes 2-await possible CT-guided drainage of this abscess versus surgical drainage and the fluid should be sent for culture both aerobic anaerobic 3-discontinue Rocephin and Flagyl 4-will start the patient on Zosyn 3.375 g every 8 hours We will follow on clinical condition and cultures to further adjust medication if needed Thank you for this consultation we will follow the patient along with you Dictation was produced using [employer] dictation software. please excuse any grammatical, word or spelling errors. Time with Patient: Greater than 30
--- NOTE | 2025-01-20 11:25 | P.PN ---
Subjective Progress Note Date: 01/20/25 SURGICAL PROGRESS NOTE CHIEF COMPLAINT: Diverticulitis with abscess HISTORY OF PRESENT ILLNESS: Patient reports improvement in his abdominal pain. He does report when he urinates he has pain in the suprapubic area but is better than yesterday. He is having flatus. Denies any nausea or vomiting. Afebrile. WBC did go up from 16-18. Antibiotics adjusted per ID service PHYSICAL EXAM: VITAL SIGNS: Reviewed. GENERAL: Well-developed in no acute distress. ABDOMEN: Soft. Nondistended. Very mild discomfort with palpation suprapubic and left lower quadrant area. No rebound or guarding noted. NEUROLOGIC: Alert and oriented. Cranial nerves II through XII grossly intact. ASSESSMENT: 1. Acute diverticulitis with intramural abscess 2. Prior history of perforated diverticulitis 3. History of colon polyps PLAN: - Antibiotics per ID service - Keep patient n.p.o. except for ice chips and popsicles - Continue to monitor leukocytosis Physician Client Partner note has been reviewed by physician. Signing provider agrees with the documented findings, assessment, and plan of care. Please see additional documentation below per MD REASON FOR CONSULTATION: Perforated diverticulitis HISTORY OF PRESENT ILLNESS: The patient is a 65 year old male presents with perforated diverticulitis including lower abdominal pain. No fevers or chills. No nausea or vomiting. Abdominal pain is improving. He still has mild lower abdominal pain. Patient is tolerating popsicles and ice chips. REVIEW OF ORGAN SYSTEMS: No nausea or vomiting. No nasal chills. PHYSICAL EXAM: VITALS: Reviewed CONSTITUTIONAL: Well developed and in no acute distress. EYES: Conjuctivae without sclera icterus. Extraocular movements grossly intact. HEAD, EARS, NOSE, THROAT: Moist buccal mucosa. Head is atraumatic, normocephalic. Hears conversational speech. No nasal drainage. RESPIRATORY: Non-labored respirations and equal bilateral excursions. No gross wheezes. CARDIOVASCULAR: Regular rate and rhythm. Extremities without moderate edema. Palpable 2+ radial pulses. ABDOMEN: Decreased left lower quadrant tenderness. No diffuse peritonitis. MUSCULOSKELETAL: No clubbing cyanosis or edema. SKIN: Warm and well perfused with good skin turgor. NEUROLOGIC: Cranial nerves II through XII grossly intact. No focal or lateralizing signs. PSYCH: Appropriate affect. Alert and oriented to person, place and time. Displays appropriate insight. CLINCAL LABS: Reviewed. WBC elevated over 16,000 increased over 18,000 ASSESSMENT: 1. Perforated sigmoid diverticulitis 2. Leukocytosis 3. History of colon polyp 4. Tobacco abuse disorder 5. Hypertensive heart disease 6. Peripheral vascular occlusive disease PLAN: 1. Continue IV antibiotics. Will discuss with infectious disease whether PICC line needed for outpatient IV antibiotics. 2. Will advance to clear liquid diet as abdominal pain is improving. 3. No acute surgical invention at this time. Objective - Vital Signs Vital signs: Vital Signs Temp 97.9 F 01/20/25 07:00 Pulse 76 01/20/25 07:00 Resp 16 01/20/25 07:00 BP 143/56 01/20/25 07:00 Pulse Ox 97 01/20/25 07:00 FiO2 Intake & Output 01/19/25 01/20/25 01/20/25 18:59 06:59 18:59 Output Total 500 Balance -500 Weight 80.739 kg Output: Urine 500 Other: Voiding Method Urinal # Voids 2 - Labs CBC & Chem 7: 01/21/25 04:01 01/21/25 04:01 Labs: Abnormal Lab Results - Last 24 Hours (Table) 01/19/25 01/20/25 01/20/25 Range/Units 11:49 05:40 05:40 WBC 18.30 H (4.50-10.00) 10*3/uL RBC 4.36 L (4.40-5.60) 10*6/uL Immature Gran # 0.10 H (0.00-0.04) 10*3/uL Neutrophils # 15.16 H (1.80-7.70) 10*3/uL Monocytes # 1.53 H (0.20-1.00) 10*3/uL Chloride 108 H (98-107) mmol/L Urine Blood Trace H (Negative) Urine Bacteria Rare H (None) /hpf Urine Mucus Rare H (None) /hpf
--- NOTE | 2025-01-20 13:51 | P.PN ---
Subjective Progress Note Date: 01/20/25 Subjective: Patient seen and examined at bedside. No acute events overnight. Continues to have abdominal pain. Pertinent positives and negatives as discussed above, a complete review of systems was performed and all other systems are negative. Vitals Signs Reviewed. General: Nontoxic, no distress, appears at stated age Derm: Warm, dry Head: Atraumatic, normocephalic, symmetric Eyes: EOMI, no lid lag, anicteric sclera Mouth: No lip lesion, mucus membranes moist Cardiovascular: S1S2 reg, no murmur Lungs: CTA bilateral, no rhonchi, no rales, no accessory muscle use Abdominal: Soft, tender to palpation in the left lower quadrant, no guarding, no appreciable organomegaly Ext: No gross muscle atrophy, no edema, no contractures Neuro: CN II-XI grossly intact, no focal neuro deficits Psych: Alert, oriented, appropriate affect Data Reviewed Today: Pertinent Labs: WBC 18.3, creatinine 1.06 Imaging: No new imaging Assessment and Plan: Active: Sepsis secondary to acute diverticulitis, possible abscess History of sigmoid diverticulitis with perforation - Continued on normal saline at 75 cc an hour - ID also consulted, started patient on IV Zosyn 3.375 g every 8 hours - Pain control with oral Tylenol as needed, IV Toradol as needed - General Surgery following, may need intervention - Previous colonoscopy from 2019 did show tubular adenoma with low-grade dysplasia Chronic: Hypertension Dyslipidemia BPH Peripheral vascular disease status post prior stent Moderate aortic insufficiency Mild mitral regurgitation DVT ppx: Subcu heparin Code status: Full code Anticipated discharge place: Pending clinical course Anticipated discharge time: Pending clinical course Patient changed from observation to inpatient status. Objective - Vital Signs Vital signs: Vital Signs Temp 97.9 F 01/20/25 07:00 Pulse 76 01/20/25 07:00 Resp 16 01/20/25 07:00 BP 143/56 01/20/25 07:00 Pulse Ox 97 01/20/25 07:00 FiO2 Intake & Output 01/19/25 01/20/25 01/20/25 18:59 06:59 18:59 Output Total 500 Balance -500 Weight 80.739 kg Output: Urine 500 Other: Voiding Method Urinal # Voids 2 - Labs CBC & Chem 7: 01/20/25 05:40 01/20/25 05:40 Labs: Abnormal Lab Results - Last 24 Hours (Table) 01/20/25 01/20/25 Range/Units 05:40 05:40 WBC 18.30 H (4.50-10.00) 10*3/uL RBC 4.36 L (4.40-5.60) 10*6/uL Immature Gran # 0.10 H (0.00-0.04) 10*3/uL Neutrophils # 15.16 H (1.80-7.70) 10*3/uL Monocytes # 1.53 H (0.20-1.00) 10*3/uL Chloride 108 H (98-107) mmol/L
--- NOTE | 2025-01-20 14:31 | P.PN ---
Subjective Progress Note Date: 01/20/25 Principal diagnosis: Reason for follow-up is for diverticulitis with intramural abscess Patient is a 65-year-old male with a past medical history significant for hypertension hyperlipidemia osteoarthritis prostate disorder did have history of perforated diverticulitis with an abscess presenting to the hospital for evaluation of abdominal pain has been diagnosed with diverticulitis with intramural abscess. On today's evaluation that is 01/20/2025,the patient remains to be afebrile, patient is on room air not requiring supplemental oxygen and denies any shortness of breath no chest pain or cough.Patient denies having any nausea or vomiting, abdominal pain has decreased in intensity. Patient did have slight worsening of the white count is up to 18.30, creatinine 1.06 Objective - Vital Signs Vital signs: Vital Signs Temp 97.9 F 01/20/25 07:00 Pulse 76 01/20/25 07:00 Resp 16 01/20/25 07:00 BP 143/56 01/20/25 07:00 Pulse Ox 97 01/20/25 07:00 FiO2 Intake & Output 01/19/25 01/20/25 01/20/25 18:59 06:59 18:59 Output Total 500 Balance -500 Weight 80.739 kg Output: Urine 500 Other: Voiding Method Urinal # Voids 2 - Exam GENERAL DESCRIPTION: An elderly male lying in bed in no distress RESPIRATORY SYSTEM: Unlabored breathing , decreased breath sounds at bases HEART: S1 S2 regular rate and rhythm , ABDOMEN: Soft , mild tenderness EXTREMITIES: No edema feet - Labs CBC & Chem 7: 01/20/25 05:40 01/20/25 05:40 Labs: Abnormal Lab Results - Last 24 Hours (Table) 01/20/25 01/20/25 Range/Units 05:40 05:40 WBC 18.30 H (4.50-10.00) 10*3/uL RBC 4.36 L (4.40-5.60) 10*6/uL Immature Gran # 0.10 H (0.00-0.04) 10*3/uL Neutrophils # 15.16 H (1.80-7.70) 10*3/uL Monocytes # 1.53 H (0.20-1.00) 10*3/uL Chloride 108 H (98-107) mmol/L Assessment and Plan (1) Leukocytosis Current Visit: Yes Status: Acute Code(s): D72.829 - ELEVATED WHITE BLOOD CELL COUNT, UNSPECIFIED SNOMED Code(s): 924000626 (2) Abscess of sigmoid colon Current Visit: Yes Status: Acute Code(s): K63.0 - ABSCESS OF INTESTINE SNOMED Code(s): 328498952 (3) Diverticulitis of colon with perforation Current Visit: No Status: Acute Code(s): K57.20 - DVTRCLI OF LG INT W PERFORATION AND ABSCESS W/O BLEEDING SNOMED Code(s): 87626327 Plan: 1patient presented the hospital abdominal pain in this patient do have history of peripheral diverticulitis and abscess in the past now with evidence of di verticulitis and peridiverticular abscess likely from perforated diverticulitis and will need to cover for enteric gram-negative both aerobes and anaerobes 2-patient is afebrile however noticed to have slight worsening of the white count follow-up continue with Zosyn 3.375 g every 8 hours and monitor clinical course closely Dictation was produced using [employer] dictation software. please excuse any grammatical, word or spelling errors. Time with Patient: Less than 30
[2025-01-20] MEDS: LIDOCAINE 4% PATCH TOPICAL SCH (19:51)
[2025-01-21 01:11] VITALS: RESP 16
[2025-01-21 05:12] LABS: Basophils % (A) 0.9 %; Eosinophils # (A) 0.17 10*3/uL (0.04-0.35); Eosinophils % (A) 1.5 %; HCT 39.8 % (39.6-50.0); HGB 13.7 g/dL (13.0-17.0); Lymphocytes # (A) 1.77 10*3/uL (0.90-5.00); Lymphocytes % (A) 15.6 %; MCH 31.3 pg (27.0-32.0); MCHC 34.4 g/dL (32.0-37.0); MCV 90.9 fL (80.0-97.0); Mean Platelet Volume 11.2 fL (9.5-12.2); Monocytes # (A) 1.06 10*3/uL (0.20-1.00); Monocytes % (A) 9.4 %; Neutrophils # (A) 8.15 10*3/uL (1.80-7.70); Neutrophils % (A) 72.1 %; Platelet Count 268 10*3/uL (140-440); RBC 4.38 10*6/uL (4.40-5.60); RDW 12.4 % (11.5-14.5); WBC 11.31 10*3/uL (4.50-10.00)
[2025-01-21 05:22] LABS: African American GFR (CKD) 83 (>60 ml/min/1.73 sqM); Anion Gap 12 mmol/L; Blood Urea Nitrogen 14 mg/dL (9-20); Calcium 8.5 mg/dL (8.4-10.2); Carbon Dioxide 21 mmol/L (22-30); Chloride 106 mmol/L (98-107); Glucose 70 mg/dL (74-99); Non-African American GFR(CKD) 72 (>60 ml/min/1.73 sqM); Sodium 139 mmol/L (137-145)
[2025-01-21 08:26] VITALS: BP 144/70; PULSE 69; TEMP 97.7
--- NOTE | 2025-01-21 10:57 | P.PN ---
Subjective Progress Note Date: 01/21/25 CHIEF COMPLAINT: Diverticulitis perforation HISTORY OF PRESENT ILLNESS: The patient is a 65-year-old male with recurrent perforated diverticulitis from 3 years ago. Patient reports he continues to still smoking. He denies any abdominal pain. Tolerating clinical diet. Patient's white count resolving. No fevers or chills. ROS: No reports of nausea and vomiting.No fevers or chills. No new chest pain. No productive sputum PHYSICAL EXAM: VITAL SIGNS: Reviewed CONSTITUTIONAL: Well developed and in no acute distress. EYES: Conjuctivae without sclera icterus. Extraocular movements grossly intact. HEAD, EARS, NOSE, THROAT: Moist buccal mucosa. Head is atraumatic, normocephalic. Hears conversational speech. No nasal drainage. RESPIRATORY: Non-labored respirations and equal bilateral excursions. CARDIOVASCULAR: Palpable 2+ radial pulses. ABDOMEN: No peritonitis. Minimal left lower quadrant tenderness. MUSCULOSKELETAL: No gross deformity of the lower extremities noted. No clubbi ng. No cyanosis. SKIN: Good skin turgor. Well perfused. NEUROLOGIC: Cranial nerves II through XII grossly intact. No focal or lateralizing signs. PSYCH: Appropriate affect. Alert and oriented to person, place and time. CLINICAL LABS: Reviewed. WBC down from 18,000-11,000. ASSESSMENT: 1. Recurrent perforated sigmoid diverticulitis 2. Tobacco abuse disorder PLAN: 1. Will advance to full liquid diet and may be discharged on full liquid diet for 1 week 2. Will need extensive antibiotic management with infectious disease team. Patient is aware that prolonged antibiotics advised due to type of infection and chronic tobacco abuse disorder 3. Outpatient follow-up in 3 to 4 weeks advised Dictation was produced using [employer] dictation software. Please excuse any grammatical, word or spelling errors. Objective - Vital Signs Vital signs: Vital Signs Temp 97.7 F 01/21/25 07:00 Pulse 69 01/21/25 07:00 Resp 16 01/21/25 07:00 BP 144/70 01/21/25 07:00 Pulse Ox 96 01/21/25 07:00 FiO2 Intake & Output 01/20/25 01/21/25 01/21/25 18:59 06:59 18:59 Intake Total 80 Output Total 500 Balance 80 -500 Intake: Oral 80 Output: Urine 500 Other: Voiding Method Toilet Urinal # Voids 2 2 - Labs CBC & Chem 7: 01/21/25 04:01 01/21/25 04:01 Labs: Abnormal Lab Results - Last 24 Hours (Table) 01/21/25 01/21/25 Range/Units 04:01 04:01 WBC 11.31 H (4.50-10.00) 10*3/uL RBC 4.38 L (4.40-5.60) 10*6/uL Immature Gran # 0.06 H (0.00-0.04) 10*3/uL Neutrophils # 8.15 H (1.80-7.70) 10*3/uL Monocytes # 1.06 H (0.20-1.00) 10*3/uL Carbon Dioxide 21 L (22-30) mmol/L Glucose 70 L (74-99) mg/dL Microbiology - Last 24 Hours (Table) 01/19/25 13:00 Blood Culture - Preliminary Blood
--- NOTE | 2025-01-21 12:44 | P.DS ---
Providers Date of admission: 01/19/25 13:49 Expected date of discharge: 01/21/25 Attending physician: Kelton Arreola Consults: 01/19/25 15:01 Consult Physician Routine Consulting Provider: Sandra Turcios Consult Reason/Comments: Diverticulitis w/abscess vs neoplasm Do you want consulting provider notified?: Yes 01/19/25 15:17 Consult Physician Routine Consulting Provider: Tevin King Consult Reason/Comments: possible abscess in sigmoid colon, diverticulitis Do you want consulting provider notified?: Yes Primary care physician: [facility] Course: Discharge Diagnosis: Sepsis secondary to acute diverticulitis History of sigmoid diverticulitis with perforation Hypertension Dyslipidemia BPH Peripheral vascular disease status post prior stent Moderate aortic insufficiency Mild mitral regurgitation Hospital Course: 65-year-old male with history of diverticulosis, hypertension, BPH, dyslipidemia presenting with abdominal pain. In the ED, temperature was 97.9, pulse 103, respiratory rate 16, blood pressure 177/73, saturating at 98% on room air. WBC 16.92, creatinine 1.01, lactate 1, lipase 53, urinalysis negative for leukocyte esterase and nitrites. EKG independently interpreted, shows normal sinus rhythm. CT abdomen pelvis shows heterogenous slightly hyperdense mass within sigmoid colon wall with adjacent inflammatory changes, possible acute diverticulitis, abscess formation or neoplasm could be considered. Patient started on IV ceftriaxone and IV Flagyl. General surgery consulted. Patient being admitted for sepsis secondary to acute diverticulitis. ID was also consulted. Patient was initially maintained on IV antibiotics. White count now improving. Abdominal pain has resolved. Patient having bowel movements. Able to tolerate oral intake. Surgery recommending outpatient follow-up. Being discharged on oral antibiotics. Patient also had recent elevated PSA, has been following up with his PCP with regards to that. Patient seen and examined at bedside. Vital signs reviewed and stable. General: Nontoxic, no distress, appears at stated age Derm: Warm, dry Head: Atraumatic, normocephalic, symmetric Eyes: EOMI, no lid lag, anicteric sclera Mouth: No lip lesion, mucus membranes moist Cardiovascular: S1S2 reg, no murmur Lungs: CTA bilateral, no rhonchi, no rales, no accessory muscle use Abdominal: Soft, nontender to palpation, no guarding, no appreciable organomegaly Ext: No gross muscle atrophy, no edema, no contractures Neuro: CN II-XI grossly intact, no focal neuro deficits Psych: Alert, oriented, appropriate affect A total of 38 minutes of time were spent preparing this complex discharge summary. Patient was discharged on 01/21/2025 at 1242. Patient Condition at Discharge: Stable Plan - Discharge Summary Discharge Rx Participant: No New Discharge Prescriptions: New metroNIDAZOLE [Flagyl] 500 mg PO TID #30 tab cefuroxime axetiL [Ceftin] 500 mg PO BID #20 tab Continue Aspirin EC [Ecotrin Low Dose] 81 mg PO DAILY Tamsulosin [Flomax] 0.4 mg PO BID carvediloL [Coreg] 3.125 mg PO BID Atorvastatin [Lipitor] 40 mg PO DAILY amLODIPine [Norvasc] 10 mg PO DAILY Discharge Medication List Aspirin EC [Ecotrin Low Dose] 81 mg PO DAILY 02/09/20 [History] Tamsulosin [Flomax] 0.4 mg PO BID 02/09/20 [History] Atorvastatin [Lipitor] 40 mg PO DAILY 01/19/25 [History] amLODIPine [Norvasc] 10 mg PO DAILY 01/19/25 [History] carvediloL [Coreg] 3.125 mg PO BID 01/19/25 [History] cefuroxime axetiL [Ceftin] 500 mg PO BID #20 tab 01/21/25 [Rx] metroNIDAZOLE [Flagyl] 500 mg PO TID #30 tab 01/21/25 [Rx] Follow up Appointment(s)/Referral(s): Sandra Turcios MD [STAFF PHYSICIAN] - 02/08/25 2:00 pm (NEEDS PCP REFERRAL) Brien Wyman DO [Primary Care Provider] - 1-2 days Patient Instructions/Handouts: How to Stop Smoking (DC), Diverticulitis (IP) Activity/Diet/Wound Care/Special Instructions: Liquid diet for next 3 days. Advance to low fiber diet. Avoid seeds nuts popcorn following discharge Discharge Disposition: HOME SELF-CARE
--- NOTE | 2025-01-21 14:55 | P.PN ---
Subjective Progress Note Date: 01/21/25 Principal diagnosis: Reason for follow-up is for diverticulitis with intramural abscess Patient is a 65-year-old male with a past medical history significant for hypertension hyperlipidemia osteoarthritis prostate disorder did have history of perforated diverticulitis with an abscess presenting to the hospital for evaluation of abdominal pain has been diagnosed with diverticulitis with intramural abscess. On today's evaluation that is 01/21/2025, the patient continues to be afebrile, the patient is on room air and breathing comfortably, the Pt denies having any c hest pain or cough, the patient mention improvement his abdominal pain no nausea vomiting or diarrhea. Patient white count down to 11.31 blood culture have been negative so far Objective - Vital Signs Vital signs: Vital Signs Temp 97.7 F 01/21/25 07:00 Pulse 69 01/21/25 07:00 Resp 16 01/21/25 07:00 BP 144/70 01/21/25 07:00 Pulse Ox 96 01/21/25 07:00 FiO2 Intake & Output 01/20/25 01/21/25 01/21/25 18:59 06:59 18:59 Intake Total 80 Output Total 500 Balance 80 -500 Intake: Oral 80 Output: Urine 500 Other: Voiding Method Toilet Urinal # Voids 2 2 - Exam GENERAL DESCRIPTION: An elderly male lying in bed in no distress RESPIRATORY SYSTEM: Unlabored breathing , decreased breath sounds at bases HEART: S1 S2 regular rate and rhythm , ABDOMEN: Soft , mild tenderness EXTREMITIES: No edema feet - Labs CBC & Chem 7: 01/21/25 04:01 01/21/25 04:01 Labs: Abnormal Lab Results - Last 24 Hours (Table) 01/21/25 01/21/25 Range/Units 04:01 04:01 WBC 11.31 H (4.50-10.00) 10*3/uL RBC 4.38 L (4.40-5.60) 10*6/uL Immature Gran # 0.06 H (0.00-0.04) 10*3/uL Neutrophils # 8.15 H (1.80-7.70) 10*3/uL Monocytes # 1.06 H (0.20-1.00) 10*3/uL Carbon Dioxide 21 L (22-30) mmol/L Glucose 70 L (74-99) mg/dL Microbiology - Last 24 Hours (Table) 01/19/25 13:00 Blood Culture - Preliminary Blood Assessment and Plan (1) Leukocytosis Current Visit: Yes Status: Acute Code(s): D72.829 - ELEVATED WHITE BLOOD CELL COUNT, UNSPECIFIED SNOMED Code(s): 425949115 (2) Abscess of sigmoid colon Current Visit: Yes Status: Acute Code(s): K63.0 - ABSCESS OF INTESTINE SNOMED Code(s): 902654416 (3) Diverticulitis of colon with perforation Current Visit: No Status: Acute Code(s): K57.20 - DVTRCLI OF LG INT W PERFORATION AND ABSCESS W/O BLEEDING SNOMED Code(s): 68529391 Plan: 1patient presented the hospital abdominal pain in this patient do have history of peripheral diverticulitis and abscess in the past now with evidence of diverticulitis and peridiverticular abscess likely from perforated diverticulitis and will need to cover for enteric gram-negative both aerobes and anaerobes 2-patient is afebrile and close noted 11.1 and showed normal improvement on Zosyn patient has been cleared for discharge by surgery we will recommend a 10- day course of oral Ceftin and Flagyl on discharge and close outpatient follow-up Dictation was produced using [employer] dictation software. please excuse any grammatical, word or spelling errors.
== END 2025-01-21 15:05 | disposition home or self-care (01) | DRG 872 ==
LOC: EC 10:03 → 1SOBS 13:48 → OBSVTOIN 13:49 → 1SOBS 14:53 → 6NMEDSUR 01-21 05:11
PROVIDERS: ADMIT Student in an Organized Health Care Education/Training Program; ATTEND Student in an Organized Health Care Education/Training Program
DX: A41.9 Sepsis, unspecified organism (principal); K57.20 Diverticulitis of large intestine with perforation and abscess without bleeding; I73.9 Peripheral vascular disease, unspecified; I11.9 Hypertensive heart disease without heart failure; I08.0 Rheumatic disorders of both mitral and aortic valves; E78.5 Hyperlipidemia, unspecified; N40.0 Benign prostatic hyperplasia without lower urinary tract symptoms; R30.9 Painful micturition, unspecified; K59.00 Constipation, unspecified; F17.200 Nicotine dependence, unspecified, uncomplicated; Z95.820 Peripheral vascular angioplasty status with implants and grafts; Z79.82 Long term (current) use of aspirin; Z79.899 Other long term (current) drug therapy; Z86.0100 Personal history of colon polyps, unspecified; Z95.5 Presence of coronary angioplasty implant and graft
CPT/HCPCS: 36415; 74177; 80048; 80053; 81001; 82150; 83605; 83690; 85025; 87040; 93005; 96361; 96365; 96367; 96375; 99285